=== PATIENT | female | born 1995 | race Caucasian/White ===

== ENCOUNTER → 2019-03-21 11:49 | Outpatient (CLI) | payer OTHER, SELFPAY ==
--- NOTE | 2019-03-21 12:25 | US_ITS ---
STUDY: ULTRASOUND BREAST - LEFT REASON FOR EXAM: Female, 23 years old. Left breast pain TECHNIQUE: Axial and longitudinal images of the LEFT breast were performed with a high resolution ultrasound transducer. COMPARISON: None. FINDINGS: LEFT Breast: Ultrasound evaluation of the upper outer quadrant of left breast shows only normal dense fibroglandular tissue. There is no suspicious solid or cystic mass, architectural distortion, or shadowing calcifications. US/Breast Limited Unilateral IMPRESSION: No suspicious sonographic findings ASSESSMENT CATEGORY: BIRADS Category 1: Negative. A letter regarding these results will be sent to the patient by the facility within 30 days. Electronically Signed: Gustabo Alejo MD at 13:34 EDT , Service support ,
== END ==
PROVIDERS: Family Provider Family Medicine; PCP Family Medicine; Referring Provider Family Medicine; Visit Provider Family Medicine
DX: N64.4 Mastodynia (principal)
CPT/HCPCS: 76642

== ENCOUNTER → 2019-06-19 12:02 | Outpatient (CLI) | payer OTHER, SELFPAY ==
[2019-06-19 11:01] VITALS: BMI 49.7
[2019-06-19 13:10] LABS: Absolute Lymphocyte Count 2.01 X10^3/uL (0.83-4.51); Absolute Neutrophil Count 7.2 X10^3/uL (2.0-7.7); Basophil# 0.06 X10^3/uL; Basophil% 0.6 % (0-1); Eosinophil# 0.03 X10^3/uL; Eosinophils% 0.3 % (0-5); Hematocrit 38.5 % (37-47); Lymphocyte # 2.01 X10^3/ul (4.0); Lymphocyte % 19.9 % (19-41); Mean Corp Hgb Conc 31.2 g/dL (32-36); Mean Corpuscular Hgb 24.4 pg (27.0-32.0); Mean Corpuscular Volume 78.3 fL (81-99); Mean Platelet Vol. 9.2 fl (6.2-12.0); Monocyte# 0.71 X10^3/uL; NRBC Flagged by Analyzer 0 % (0-5); Neutrophil # 7.23 X10^3/uL (2.7-7.7); Neutrophil % 71.8 % (47-70); Platelet Count 329 K/mm3 (150-450); RBC Distribution Width CV 16.7 % (11.6-14.6); RBC Distribution Width SD 47.3 fl (35.1-43.9); Red Blood Count 4.92 M/mm3 (4.2-5.4); White Blood Count 10.1 K/mm3 (4.4-11.0)
[2019-06-19 13:30] LABS: Glucose Challenge Gest 1H 50g 113 mg/dL (70-140)
[2019-06-19 14:20] LABS: HIV - WCH Non-Reactive (Nonreactive); Rubella IgG 72.5 IU/mL
[2019-06-19 18:44] LABS: Chlamydia Trachomatis by PCR Negative (Negative); Neisserai gonorrhoeae by PCR Negative (Negative); Probe Check PASS; Sample Adequacy Control PASS; Specimen Processing Control PASS
[2019-06-20 02:37] LABS: Rapid Plasmin Reagin (RPR) NONREACTIVE (NONREACTIVE)
== END ==
PROVIDERS: Family Provider Family Medicine; PCP Family Medicine; Referring Provider Obstetrics & Gynecology; Visit Provider Obstetrics & Gynecology
DX: Z34.90 Encounter for supervision of normal pregnancy, unspecified, unspecified trimester (principal); O99.210 Obesity complicating pregnancy, unspecified trimester; E66.9 Obesity, unspecified; Z3A.00 Weeks of gestation of pregnancy not specified
CPT/HCPCS: 36415; 82950; 85025; 86592; 86703; 86762; 86850; 86900; 86901; 87086; 87088; 87491; 87591

== ENCOUNTER 2019-08-06 16:26 | Emergency (ER) | payer OTHER, SELFPAY ==
[2019-07-23 09:22] VITALS: BMI 49.7
[2019-08-06 16:27] VITALS: BP 140/86; PULSE 102; RESP 16; TEMP 36.6; O2SAT 100; BMI 49.2
--- NOTE | 2019-08-06 16:38 | ED.VIS.GEN ---
History of Present Illness Chief Complaint: Abd Pain Detail of Chief Complaint: Left lower quadrant pain Informant: Patient Onset: Days - 3 days Timing: Intermittent Current Severity: Mild Maximum Severity: Moderate Narrative: Patient presents with left lower quadrant pain that she feels whenever she is voiding, urinating or defecating. She is currently 15 weeks with twins. She denies fever or chills. She has chronic ongoing nausea with the but it is not been any worse. She has had no diarrhea. - Past Medical History (1) Twin Status: Acute Comment: Di/Di Past Medical History - Allergies and Home Meds Allergies/Adverse Reactions: Allergies No Known Allergies Allergy (Verified 08/06/19 16:27) Primary Care Physician: Tabitha Overton MD [Primary Care Provider] - Prior records reviewed: Yes Lives: With Family Smoking Status: Never smoker Review of Systems General: Denies: Chills, Fever Eyes: Denies: Visual changes - bilaterally ENT: Denies: Bilateral ear pain Cardiovascular: Denies: Chest pain Respiratory: Denies: Dyspnea, Cough Gastrointestinal: Reports: Abdominal pain, Nausea, Vomiting. Denies: Diarrhea, Constipation Genitourinary: Reports: Dysuria Musculoskeletal: Denies: Extremity Pain Skin: Denies: Rash Neurological: Denies: Headache Endocrine: Denies: Polyuria, Polydipsia Allergy: Denies: Uticaria Physical Exam Vital Signs/Narrative: Vital Signs Temp Pulse Resp BP Pulse Ox 08/06/19 16:27 97.9 F 102 H 16 140/86 H 100 Inital Vital Signs reviewed: Yes General: Well nourished, Well developed Head: Normocephalic ENT: Moist mucous membranes Neck: Supple Cardiovascular: Regular rate, Regular rhythm Respiratory: No distress, CTA bilaterally Abdomen: Soft - Gravid, Tender - Minimal tenderness in the left lower quadrant., Hypoactive bowel sounds. Negative for: Guarding, Rebound tenderness Skin: Normal color, No rash Neurological: Alert, Oriented x3 Psychological: Normal affect Diagnostic/Tx/Re-eval Laboratory Results 08/06/19 16:41 Urine Color Yellow Urine Clarity Sl. Cloudy Urine pH 6.5 Ur Specific [place] 1.015 Urine Protein Negative Urine Glucose (UA) Normal Urine Ketones 15 H Urine Occult Blood Negative Urine Nitrite Negative Urine Bilirubin Negative Urine Urobilinogen Normal Ur Leukocyte Esterase 25 H Urine RBC 0 SEEN Urine WBC 0-5 SEEN Ur Squamous Epith Cells 10-25 SEEN Urine Bacteria 1+ Urine Mucus 0 SEEN - Medical Decision Making Test results are discussed with the patient. Urine is not a clean sample but does not have significant signs of infection. Patient has had not had fever or chills. She is had no change in bowel habits. Diverticulitis would be very unlikely given her current presentation. I did discuss this with her and advised her to have repeat exam if she were to develop worsening symptoms, fever, bowel changes, etc. I also spoke with the patient's RAZOR SHARPENER, Dr. Reagan. She agrees with the current assessment. Patient is to follow-up in the office. ED Disposition - Plan for ED Patient: Disposition: Home or Assisted Living Diagnosis: Abdominal pain Instructions: ABDOMINAL PAIN, Unknown Cause, (Female) Referrals: Nicole Reagan MD [STAFF PHYSICIAN] - 1 Week if not improving
[2019-08-06 16:51] LABS: Mucous, Urine 0 SEEN /hpf (<or=2+); Red Blood Cells-Urine 0 SEEN /hpf (0-5)
[2019-08-06 16:55] LABS: Color, Urine Yellow (Yellow); Glucose, Dipstick Normal (Normal); Ketone-Dipstick 15 mg/dl (Negative); Leukocyte Esterase-Dipstick 25 /ul (Negative); Nitrite-Dipstick Negative (Negative); Occult Blood-Urine Negative /ul (Negative); Protein-Dipstick Negative (Negative); Specific Gravity, Urine 1.015 (1.002-1.030); Urine Bilirubin Dipstick Negative (Negative); Urine Clarity Sl. Cloudy (Clear); Urine Urobilinogen Normal (Normal); Urine pH 6.5 (5.0 - 8.0)
[2019-08-06 17:03] LABS: Bacteria 1+ /hpf (None Seen); Squamous Epithelial Cells - UA 10-25 SEEN /hpf (5-10); White Blood Cells 0-5 SEEN /hpf (0-5)
== END 2019-08-06 17:23 | disposition home or self-care (01) ==
LOC: ED 17:19
PROVIDERS: Emergency Provider Emergency Medicine; Family Provider Family Medicine; PCP Family Medicine
DX: O26.892 Other specified pregnancy related conditions, second trimester (principal); R10.32 Left lower quadrant pain; R11.2 Nausea with vomiting, unspecified; R30.0 Dysuria; O30.042 Twin pregnancy, dichorionic/diamniotic, second trimester; Z3A.15 15 weeks gestation of pregnancy
CPT/HCPCS: 81001; 99282

== ENCOUNTER 2019-10-12 10:02 | Outpatient (CLI) | payer OTHER, SELFPAY ==
[2019-09-19 09:05] VITALS: BMI 49.2
[2019-10-12 10:58] VITALS: BMI 50.6
[2019-10-12 10:58] LABS: Bacteria 0 SEEN /hpf (None Seen); Mucous, Urine 0 SEEN /hpf (<or=2+); Red Blood Cells-Urine 0 SEEN /hpf (0-5); White Blood Cells 0 SEEN /hpf (0-5)
[2019-10-12 11:11] LABS: Color, Urine Yellow (Yellow); Glucose, Dipstick Normal (Normal); Ketone-Dipstick Negative (Negative); Leukocyte Esterase-Dipstick Negative /ul (Negative); Nitrite-Dipstick Negative (Negative); Occult Blood-Urine Negative /ul (Negative); Protein-Dipstick Negative (Negative); Specific Gravity, Urine 1.005 (1.002-1.030); Urine Bilirubin Dipstick Negative (Negative); Urine Clarity Clear (Clear); Urine Urobilinogen Normal (Normal)
[2019-10-12 11:16] LABS: Squamous Epithelial Cells - UA 10-25 SEEN /hpf (5-10)
[2019-10-12 11:29] LABS: ROM Internal Control Test YES-OK TO RESULT pt. (Internal QC); ROM Patient Test Negative (Negative)
--- NOTE | 2019-10-12 15:47 | OB.TRI.PN ---
Progress Notes Date of Service: 10/12/19 Progress Note: quesitonable ROM negative rom plus positive FHT x 2 dc home labor preacutions Laboratory Studies: Laboratory Tests 10/12/19 10/12/19 Range/Units 10:45 10:45 Urine Color Yellow (Yellow) Urine Clarity Clear (Clear) Urine pH 7.0 (5.0 - 8.0) Ur Specific [place] 1.005 (1.002-1.030) Urine Protein Negative (Negative) mg/dl Urine Glucose (UA) Normal (Normal) mg/dl Urine Ketones Negative (Negative) mg/dl Urine Occult Blood Negative (Negative) /ul Urine Nitrite Negative (Negative) Urine Bilirubin Negative (Negative) mg/dL Urine Urobilinogen Normal (Normal) mg/dl Ur Leukocyte Esterase Negative (Negative) /ul Urine RBC 0 SEEN (0-5) /hpf Urine WBC 0 SEEN (0-5) /hpf Ur Squamous Epith Cells 10-25 SEEN (5-10) /hpf Urine Bacteria 0 SEEN (None Seen) /hpf Urine Mucus 0 SEEN (<or=2+) /hpf Vag Amniotic Fld Detect Negative (Negative) Multi Select Codes - Urinary/Genital Urinary/Genital CPT Codes: No Charge
== END 2019-10-12 11:30 | disposition home or self-care (01) ==
LOC: WPOUT 10:24 → OBT 10:25
PROVIDERS: PCP Family Medicine; Visit Provider Obstetrics & Gynecology
DX: Z34.90 Encounter for supervision of normal pregnancy, unspecified, unspecified trimester (principal)
CPT/HCPCS: 59050; 81001; 84112; 99218; G0378

== ENCOUNTER 2019-10-19 09:42 | Inpatient (IN) | payer OTHER, SELFPAY ==
[2019-10-17 08:26] VITALS: BMI 50.6
[2019-10-19 09:43] VITALS: BP 155/87; PULSE 104; RESP 17; TEMP 36.9; O2SAT 97; BMI 51.0
[2019-10-19 10:06] LABS: Mucous, Urine 0 SEEN /hpf (<or=2+); Red Blood Cells-Urine 0 SEEN /hpf (0-5); White Blood Cells 0 SEEN /hpf (0-5)
[2019-10-19] MEDS: 0.9% Normal Saline 1,000 ML 150 ML IV (10:08)
[2019-10-19] MEDS: Ondansetron 4 MG/2 ML Vial IV ×2 (10:08→18:18)
[2019-10-19] MEDS: Morphine 4 MG/ML Syringe IV (10:08)
--- NOTE | 2019-10-19 10:09 | ED.VISSUMM ---
- ER Visit Summary Date of Service: 10/19/19 Chief Complaint: [Right-sided back pain] History of Present Illness: The patient is a 24 F [presents to the emergency department with symptoms that started around 2 AM this morning. Pain woke her up from sleep. Patient states the pain is progressively gotten worse. At times with breathing pain seems to radiate to the front of the abdomen. Patient complains of dysuria and urgency and frequency. She denies any fevers. Patient is currently with twins and is 25 weeks. Patient denies any fevers. She has had nausea and vomited x2. She denies any diarrhea. She denies any blood in her stool or black tarry stool. Food does not affect her pain. No prior history of kidney stones. Patient was seen in urgent care today and referred to the emergency department as she had blood in her urine.] Patient currently rates her pain a 10 out of 10. Physical Examination: [HEENT-PERRLA, EOMI. Cranial nerves II through XII grossly intact. TMs clear. Mucous membranes moist. No adenopathy. Cardiovascular-regular rate and rhythm without murmur or ectopy Lungs-clear to auscultation, chest wall stable without crepitus or subcu emphysema Abdomen-normoactive bowel sounds, soft, nontender, no rebound or rigidity, no peritoneal signs. Back exam-patient has CVA tenderness on the right. No tenderness over the thoracic or lumbar spine. Extremities-intact ?4, normal range of motion, normal pulses, atraumatic] Test Results: [CBC with differential obtained showed a white count 12.3, hemoglobin 11, hematocrit 34, placed to 80. Chemistries unremarkable. Urinalysis unremarkable. CT flank showed a right hydronephrosis and hydroureter they think possibly from compression of the ureter by the uterus] Emergency Department Course and Treatment: [Patient had an IV line established. Patient was ordered normal saline. Patient was given morphine 4 mg IV and Zofran 4 mg IV.] Patient had to be remedicated with Dilaudid 1 mg IV. Patient continued complaint of pain and was given a second dose of Dilaudid 1 mg IV. Case was discussed with patient's ASSOCIATE PROFESSOR OF COMMUNICATION Dr. Reagan who asked that we transfer patient over to labor and delivery to evaluate for early labor and to continue to manage her pain. Treatment Plan: [Patient will be discharged to labor and delivery. Patient I suspect will likely get admitted for pain management.] I will send off a lactate. In the differential also would be a renal infarct and patient may need further imaging such as CT scan with IV contrast if symptoms do not improve. Disposition: [Transfer to labor and delivery and care will be managed by Dr. Reagan ] Impression: [Intractable right flank pain-etiology uncertain] This note was generated with [employer] dictation software. It may contain incorrect words, spelling, and punctuation that were not noted in review of the chart prior to signing ED Disposition - Plan for ED Patient: Referrals: Tabitha Overton MD [Primary Care Provider] -
[2019-10-19 10:12] LABS: Absolute Lymphocyte Count 2.23 X10^3/uL (0.83-4.51); Absolute Neutrophil Count 8.9 X10^3/uL (2.0-7.7); Basophil# 0.05 X10^3/uL; Basophil% 0.4 % (0-1); Eosinophil# 0.12 X10^3/uL; Hematocrit 33.9 % (37-47); Hemoglobin 10.8 g/dL (12.0-15.0); Lymphocyte # 2.23 X10^3/ul (4.0); Lymphocyte % 18.1 % (19-41); Mean Corp Hgb Conc 31.9 g/dL (32-36); Mean Corpuscular Hgb 26.6 pg (27.0-32.0); Mean Corpuscular Volume 83.5 fL (81-99); Mean Platelet Vol. 9.1 fl (6.2-12.0); Monocyte# 0.91 X10^3/uL; Monocyte% 7.4 % (0-10); NRBC Flagged by Analyzer 0 % (0-5); Neutrophil # 8.87 X10^3/uL (2.7-7.7); Neutrophil % 71.9 % (47-70); Platelet Count 280 K/mm3 (150-450); RBC Distribution Width CV 14.7 % (11.6-14.6); RBC Distribution Width SD 44.5 fl (35.1-43.9); Red Blood Count 4.06 M/mm3 (4.2-5.4); White Blood Count 12.3 K/mm3 (4.4-11.0)
[2019-10-19 10:13] LABS: Color, Urine Yellow (Yellow); Glucose, Dipstick Normal (Normal); Ketone-Dipstick Negative (Negative); Leukocyte Esterase-Dipstick Negative /ul (Negative); Nitrite-Dipstick Negative (Negative); Occult Blood-Urine 25 /ul (Negative); Protein-Dipstick 30 mg/dl (Negative); Urine Bilirubin Dipstick Negative (Negative); Urine Clarity Clear (Clear); Urine Urobilinogen Normal (Normal); Urine pH 6.5 (5.0 - 8.0)
[2019-10-19 10:16] VITALS: BP 155/87; PULSE 104; RESP 17; TEMP 36.9; O2SAT 97
[2019-10-19 10:27] LABS: Bacteria 1+ /hpf (None Seen); Squamous Epithelial Cells - UA 5-10 SEEN /hpf (5-10)
[2019-10-19 10:28] LABS: ALB/GLOB Ratio 0.7 RATIO (0.9-2.4); AST(SGOT) 7 U/L (15-37); Alanine Aminotransfer ALT/SGPT 22 U/L (13-56); Alkaline Phosphatase 109 U/L (45-117); Anion Gap 5 (5-15); BUN 11 mg/dL (7-18); BUN/Creat Ratio 13.6 RATIO (10-20); Calcium,Total 9.1 mg/dL (8.5-10.1); Chloride 108 mmol/L (98-107); Creatinine, Serum 0.81 mg/dL (0.55-1.02); EST Glomerular Filtration Rate 92 mL/min (>60); Est Glom Filt Rate - Afr Amer 111 mL/min (>60); Estimated Creatinine Clearance 87.83 ml/min; Globulin 4.4 g/dL (2.2-4.2); Glucose 88 mg/dL (74-106); Potassium 4.1 mmol/L (3.5-5.1); Protein, Total 7.4 g/dL (6.4-8.2); Sodium Level 138 mmol/L (136-145)
--- NOTE | 2019-10-19 10:38 | CT_ITS ---
STUDY: CT ABDOMEN AND PELVIS WITHOUT CONTRAST REASON FOR EXAM: Female, 24 years old. RT FLANK PAIN, 25 WKS PREG RADIATION DOSAGE (If Supplied By Facility): CTDIvol = ( 24.17 ) mGy, DLP = ( 1462.60 ) mGycm TECHNIQUE: Transaxial images were obtained from the dome of the diaphragm to the symphysis pubis without oral contrast, and without intravenous contrast. Sagittal and coronal images were reconstructed. Individualized dose optimization techniques were used for this CT. COMPARISON: None. FINDINGS: The visualized lung bases are unremarkable. The visualized portions of the heart are within normal limits. Normal liver. Normal gallbladder and extrahepatic biliary system. Normal spleen. Normal pancreas. Normal bilateral adrenal glands. Mild hydronephrosis of the right kidney and mild proximal right hydroureter. Normal left kidney. Normal visualized stomach. Normal small intestine. Normal colon. The appendix is visualized and appears normal. Normal abdominal aorta. Normal inferior vena cava. Normal retroperitoneum. Normal urinary bladder. Twin gestation is noted within the uterus. Enlarged uterus may compress the right ureter. Normal abdominal wall. Normal osseous structures. CT/Abdomen/Pelvis without Cont IMPRESSION: Mild right hydronephrosis and mild right hydroureter with probable compression of the distal right ureter by the gravid uterus containing a twin gestation. Electronically Signed: Sang Mehta DO at 11:43 EST Tel [phone], Service support ,
[2019-10-19] MEDS: HYDROmorphone 1 MG/ML Syringe IV ×4 (10:55→16:42)
[2019-10-19 11:23] VITALS: BP 120/48; PULSE 98; RESP 20; O2SAT 97
[2019-10-19 11:51] VITALS: BP 163/91; PULSE 91; RESP 20
--- NOTE | 2019-10-19 11:59 | ED.DEP ---
ED Disposition - Plan for ED Patient: Instructions: FLANK PAIN, Uncertain Cause Referrals: Tabitha Overton MD [Primary Care Provider] - Nicole Reagan MD [STAFF PHYSICIAN] - As soon as possible Additional Instructions: go directly to labor and delivery
[2019-10-19 12:24] VITALS: BMI 50.5
[2019-10-19 12:24] LABS: Lactic Acid 0.6 mmol/L (0.4-1.9)
[2019-10-19] MEDS: fentaNYL 100 MCG/2 ML Ampul 50 MCG IV (12:38)
[2019-10-19] MEDS: fentaNYL 100 MCG/2 ML Ampul IV ×4 (12:59→14:03)
[2019-10-19] MEDS: Lactated Ringers 500 ML 999 ML IV (13:19)
[2019-10-19 13:30] LABS: ALB/GLOB Ratio 0.7 RATIO (0.9-2.4); AST(SGOT) 10 U/L (15-37); Alanine Aminotransfer ALT/SGPT 19 U/L (13-56); Albumin, Serum 2.8 g/dL (3.2-5.0); Alkaline Phosphatase 104 U/L (45-117); Anion Gap 8 (5-15); BUN 10 mg/dL (7-18); Calcium,Total 8.7 mg/dL (8.5-10.1); Chloride 111 mmol/L (98-107); Creatinine, Serum 0.84 mg/dL (0.55-1.02); EST Glomerular Filtration Rate 88 mL/min (>60); Est Glom Filt Rate - Afr Amer 107 mL/min (>60); Estimated Creatinine Clearance 84.69 ml/min; Glucose 95 mg/dL (74-106); LDH 153 U/L (84-246); Potassium 4.2 mmol/L (3.5-5.1); Protein, Total 6.8 g/dL (6.4-8.2); Sodium Level 139 mmol/L (136-145); Uric Acid 4.1 mg/dL (2.6-6.0)
[2019-10-19 14:18] LABS: Fibrinogen 598 mg/dl (203-444)
[2019-10-19] MEDS: proMETHazine 25 MG/ML Syringe IM (14:33)
[2019-10-19] MEDS: Ceftriaxone 1 GM/50 ML BAG IV (14:52)
--- NOTE | 2019-10-19 15:05 | CON.PCM_ITS ---
Problem List (1) Low back pain Status: Acute Qualifiers: Chronicity: acute Back pain laterality: right (2) Dysuria during Status: Acute (3) Dysuria Status: Acute Reason for Consult Date of Consultation: 10/19/19 Reason for Consultation: right low back pain History of Present Illness: The patient is a 24 year old F 25 weeks gravid with twin . Developed acute onset right low back pain at 2am. The pain radiates into right groin area and is also associated with nausea. She has vomited 4 times. No history of stones, no pain like this previously. There is some mild dysuria, but no increased urgency, frequency or hematuria. No fever or chills. In significant pain, she is lying on left side, reports pain is worse when she lays this way as it feels like it stretches out the area with pain. Past Medical History Allergies No Known Allergies Allergy (Verified 10/19/19 09:43) Home Medications: Ambulatory Orders Medication Instructions Recorded famotidine 20 mg tablet 20 mg PO DAILY #30 tab 07/23/19 Ferrous Sulfate [Iron] 325 mg PO DAILY 10/12/19 Folic Acid 1 mg PO DAILY 10/12/19 Vits [Prenatabs FA ] 1 tab PO DAILY 10/12/19 Ondansetron HCl [Zofran] 4 mg PO Q4H PRN 10/19/19 Smoking Status: Never smoker Review of Systems Constitutional: Denies: Fever Eyes: Denies: Vision Change HEENT: Denies: Visual Changes Cardiovascular: Denies: Chest Pain Respiratory: Denies: Shortness of Breath Gastrointestinal: Reports: Abdominal Pain - right inguinal and right low back Genitourinary: Reports: Dysuria. Denies: Frequency, Hematuria, Hesitancy, Urgency Musculoskeletal: Reports: Muscle pain - describes it as a stretching pain Neurological: Denies: Confusion Patient Problems: Active and Suspected Problems (Last Reviewed 10/17/19 @ 08:25 by Mar Fernández) Low back pain (Acute) Dysuria during (Acute) Dysuria (Acute) Objective: She is grimacing due to pain. - Physical Exam Vitals/I&O's: Vital Signs Temp Pulse Resp BP Pulse Ox 98.4 F 91 20 H 163/91 H 97 10/19/19 10:16 10/19/19 11:51 10/19/19 11:51 10/19/19 11:51 10/19/19 11:23 Oxygen Delivery Method Room Air Weight: 129.5 kg Body Mass Index (BMI) 50.5 Intake and Output for Last 24 Hours 10/17/19 10/18/19 10/19/19 23:59 23:59 23:59 Intake Total 807.85 / 807.85 Balance 807.85 / 807.85 General: Alert, Oriented x3, Cooperative, - - moderate stress due to pain HEENT: Atraumatic, Normocephalic Oral: Moist Mucosa Neck: Supple, Trachea Midline Lungs: Normal air movement Cardiovascular: Regular rate Abdomen: Gravid, Tender - over the right low back and hip area. There is no tenderness in the flank or CVA with palpation. The pain is superficial in location, seems muscular when palpated. Skin: No rashes Musculoskeletal: No Muscle Wasting Neurological: Cranial nerves II-XII grossly intact, Neuro grossly intact Laboratory Results 10/19/19 10:00: WBC 12.3 H, RBC 4.06 L, Hgb 10.8 L, Hct 33.9 L, MCV 83.5, MCH 26.6 L, MCHC 31.9 L, RDW Std Deviation 44.5 H, RDW Coeff of Joey 14.7 H, Plt Count 280, MPV 9.1, Immature Gran % (Auto) 1.200 H, Neut % (Auto) 71.9 H, Lymph % (Auto) 18.1 L, [place] % (Auto) 7.4, Eos % (Auto) 1.0, Baso % (Auto) 0.4, Absolute Neuts (auto) 8.9 H, Absolute Lymphs (auto) 2.23, Nucleated RBC % 0 10/19/19 10:00: Sodium 138, Potassium 4.1, Chloride 108 H, Carbon Dioxide 25.0, Anion Gap 5, BUN 11, Creatinine 0.81, Estim Creat Clear Calc 87.83, Est GFR (MDRD) Af Amer 111, Est GFR (MDRD) Non-Af 92, BUN/Creatinine Ratio 13.6, Glucose 88, Calcium 9.1, Total Bilirubin 0.30, AST 7 L, ALT 22, Alkaline Phosphatase 109, Total Protein 7.4, Albumin 3.0 L, Globulin 4.4 H, Albumin/Globulin Ratio 0.7 L 10/19/19 10:00: Urine Color Yellow, Urine Clarity Clear, Urine pH 6.5, Ur Specific [place] 1.020, Urine Protein 30 H, Urine Glucose (UA) Normal, Urine Ketones Negative, Urine Occult Blood 25 H, Urine Nitrite Negative, Urine Bilirubin Negative, Urine Urobilinogen Normal, Ur Leukocyte Esterase Negative, Urine RBC 0 SEEN, Urine WBC 0 SEEN, Ur Squamous Epith Cells 5-10 SEEN, Urine Bacteria 1+, Urine Mucus 0 SEEN 10/19/19 11:55: Lactic Acid 0.6 10/19/19 13:00: Sodium 139, Potassium 4.2, Chloride 111 H, Carbon Dioxide 20.0 L , Anion Gap 8, BUN 10, Creatinine 0.84, Estim Creat Clear Calc 84.69, Est GFR (MDRD) Af Amer 107, Est GFR (MDRD) Non-Af 88, BUN/Creatinine Ratio 12.0, Glucose 95, Uric Acid 4.1, Calcium 8.7, Total Bilirubin 0.20, AST 10 L, ALT 19, Alkaline Phosphatase 104, Lactate Dehydrogenase 153, Total Protein 6.8, Albumin 2.8 L, Globulin 4.0, Albumin/Globulin Ratio 0.7 L 10/19/19 13:35: Fibrinogen 598 H Current Medications Fentanyl Citrate (Sublimaze (100mcg Ampule)) 25 - 50 mcg IV Q15M PRN PRN Reason: PAIN SCORE 1-10 Last Admin: 10/19/19 14:03 Dose: 50 mcg Documented by: Hydromorphone HCl (Dilaudid Inj) 1 mg IV X1 PRN PRN Reason: Pain Score 1-10/10 or Fever Ceftriaxone Sodium (Rocephin) 1 gm in 50 mls @ 100 mls/hr IV Q24 RAVEN Last Admin: 10/19/19 14:52 Dose: 100 mls/hr Documented by: Assessment/Plan All Active Problems (Last Reviewed 10/17/19 @ 08:25 by Mar Fernández) Low back pain (Acute) Dysuria during (Acute) Dysuria (Acute) Twin (Acute) Supervision of high-risk (Acute) Obesity affecting (Acute) (Acute) Agree with Rocephin and await urine culture. Keflex on discharge. I reviewed the CT report and images. There is no evidence of stone, but there is mild right hydronephrosis, most consistent at this time with physiologic obstruction due to . Continue supportive care with pain medication, antiemetics, fluid as needed. Will add local pain gel to see if helps. Recommend continued K-pad as well. Will follow vitals, labs and exams. Thank you for the consult.
[2019-10-19] MEDS: Capsaicin 0.025% 1 APPLIC Tube TOPICAL (15:34)
--- NOTE | 2019-10-19 15:35 | NURSING ---
topical analgesic applied to right buttock per order. after approx 5 min pt c/o burning. States this is making it worse topicals removed with soap and water per pt request
[2019-10-19 16:13] LABS: Absolute Lymphocyte Count 1.11 X10^3/uL (0.83-4.51); Absolute Neutrophil Count 13.6 X10^3/uL (2.0-7.7); Basophil# 0.05 X10^3/uL; Basophil% 0.3 % (0-1); Hematocrit 33.2 % (37-47); Hemoglobin 10.3 g/dL (12.0-15.0); Lymphocyte # 1.11 X10^3/ul (4.0); Mean Corpuscular Hgb 26.4 pg (27.0-32.0); Mean Corpuscular Volume 85.1 fL (81-99); Mean Platelet Vol. 8.9 fl (6.2-12.0); Monocyte# 0.86 X10^3/uL; Monocyte% 5.5 % (0-10); NRBC Flagged by Analyzer 0 % (0-5); Neutrophil # 13.56 X10^3/uL (2.7-7.7); Platelet Count 230 K/mm3 (150-450); RBC Distribution Width CV 14.3 % (11.6-14.6); RBC Distribution Width SD 43.9 fl (35.1-43.9); White Blood Count 15.8 K/mm3 (4.4-11.0)
[2019-10-19] MEDS: Lactated Ringers 1,000 ML 100 ML IV (16:49)
--- NOTE | 2019-10-19 20:15 | US_ITS ---
STUDY: RENAL ULTRASOUND - COMPLETE REASON FOR EXAM: Female, 24 years old. Right-sided pain. TECHNIQUE: Ultrasound evaluation of the kidneys was performed with real-time and static burch-scale imaging. COMPARISON: CT abdomen and pelvis earlier same date. FINDINGS: RIGHT KIDNEY: Normal size 12.9 x 7.9 x 7.0 cm. Normal cortical thickness 2.0 cm. Mild right hydronephrosis again demonstrated. No stones are evident. LEFT KIDNEY: Normal size 11.6 x 6.9 x 6.2 cm. Normal cortical thickness 2.0 cm. No concerning mass, shadowing stone, or hydronephrosis. Normal caliber abdominal aorta. Urinary bladder with no apparent mass or stones or filling defects, not fully distended. Left ureteral jet identified. Right ureteral jet not seen. US/Kidney and Bladder IMPRESSION: Moderate right hydronephrosis due to compression of the mid right ureter by the gravid uterus again demonstrated. Electronically Signed: Duc Chávez, at 23:54 EST Tel , Service support ,
--- NOTE | 2019-10-19 20:15 | US_ITS ---
STUDY: ABDOMINAL ULTRASOUND - RIGHT UPPER QUADRANT REASON FOR VISIT: Female, 24 years old RLQ AND RUQ PAIN 25WEEKS WITH TWINS RIGHT FLANK PAIN TECHNIQUE: Ultrasound evaluation of the right upper quadrant was performed with real-time and static valdez-scale imaging. TECHNICAL QUALITY: Limited. Examination limited due to a combination of factors including patient''s condition, obesity and bowel gas. COMPARISON: CT abdomen pelvis 10/19/2019 FINDINGS: Liver: The liver measures 22 cm. There is normal echogenicity of the liver. The bile ducts are within normal limits. There is hepatic color flow. The direction of portal flow is hepatopetal. There is no demonstrated mass lesion. Gallbladder: 10 cm distended gallbladder. The gallbladder wall measures 2.2 mm. There is a negative sonographic Mai''s sign. There is no pericholecystic fluid. There are gallbladder polyp of 0.4 x 0.4 x 0.5 cm. Common Bile Duct (C.B.D.): The common bile duct measures 3 mm. Pancreas: Normal size of the head, body and tail of the pancreas. There is normal echogenicity of the pancreas. There is no demonstrated pancreatic mass or cyst. Right Kidney: Normal size of the right kidney. The right kidney measures 13.3 x 8 x 7.3 cm. Normal renal cortex. The right cortex measures 2.4 cm. There is no demonstrated renal mass or cyst. There is mild hydronephrosis of the right kidney. US/Abdomen Limited IMPRESSION: Mild right hydronephrosis without obstructing calculus is seen on CT. Gallbladder polyp without gallbladder inflammation, biliary obstruction, or ascites. Electronically Signed: Hansa Castro MD at 23:58 EST , Service support ,
[2019-10-19 21:40] LABS: Fibrinogen 582 mg/dl (203-444)
[2019-10-19 21:48] LABS: ALB/GLOB Ratio 0.7 RATIO (0.9-2.4); AST(SGOT) 9 U/L (15-37); Alanine Aminotransfer ALT/SGPT 19 U/L (13-56); Albumin, Serum 2.7 g/dL (3.2-5.0); Alkaline Phosphatase 104 U/L (45-117); Anion Gap 11 (5-15); BUN 10 mg/dL (7-18); Calcium,Total 8.6 mg/dL (8.5-10.1); Chloride 106 mmol/L (98-107); Creatinine, Serum 0.91 mg/dL (0.55-1.02); EST Glomerular Filtration Rate 80 mL/min (>60); Est Glom Filt Rate - Afr Amer 97 mL/min (>60); Estimated Creatinine Clearance 78.18 ml/min; Glucose 82 mg/dL (74-106); LDH 126 U/L (84-246); Protein, Total 6.7 g/dL (6.4-8.2); Sodium Level 139 mmol/L (136-145)
[2019-10-20 00:03] LABS: Lactic Acid 0.7 mmol/L (0.4-1.9)
[2019-10-20] MEDS: HYDROmorphone 1 MG/ML Syringe IV ×2 (00:04→04:39)
[2019-10-20] MEDS: fentaNYL 100 MCG/2 ML Ampul IV (03:14)
[2019-10-20] MEDS: Ondansetron 4 MG/2 ML Vial IV (03:26)
[2019-10-20] MEDS: Lactated Ringers 1,000 ML 100 ML IV (03:26)
[2019-10-20 04:43] LABS: Absolute Lymphocyte Count 2.05 X10^3/uL (0.83-4.51); Absolute Neutrophil Count 10.2 X10^3/uL (2.0-7.7); Basophil# 0.04 X10^3/uL; Basophil% 0.3 % (0-1); Eosinophil# 0.02 X10^3/uL; Eosinophils% 0.1 % (0-5); Hematocrit 29.1 % (37-47); Hemoglobin 8.9 g/dL (12.0-15.0); Lymphocyte # 2.05 X10^3/ul (4.0); Lymphocyte % 15.3 % (19-41); Mean Corp Hgb Conc 30.6 g/dL (32-36); Mean Corpuscular Hgb 25.8 pg (27.0-32.0); Mean Corpuscular Volume 84.3 fL (81-99); Mean Platelet Vol. 9.2 fl (6.2-12.0); Monocyte# 0.96 X10^3/uL; Monocyte% 7.2 % (0-10); NRBC Flagged by Analyzer 0 % (0-5); Neutrophil # 10.23 X10^3/uL (2.7-7.7); Neutrophil % 76.3 % (47-70); Platelet Count 235 K/mm3 (150-450); RBC Distribution Width CV 14.6 % (11.6-14.6); RBC Distribution Width SD 44.6 fl (35.1-43.9); Red Blood Count 3.45 M/mm3 (4.2-5.4); White Blood Count 13.4 K/mm3 (4.4-11.0)
[2019-10-20 05:14] LABS: ALB/GLOB Ratio 0.7 RATIO (0.9-2.4); AST(SGOT) 10 U/L (15-37); Alanine Aminotransfer ALT/SGPT 18 U/L (13-56); Albumin, Serum 2.5 g/dL (3.2-5.0); Alkaline Phosphatase 96 U/L (45-117); Anion Gap 9 (5-15); BUN 9 mg/dL (7-18); BUN/Creat Ratio 9.5 RATIO (10-20); Calcium,Total 8.6 mg/dL (8.5-10.1); Chloride 107 mmol/L (98-107); Creatinine, Serum 0.95 mg/dL (0.55-1.02); EST Glomerular Filtration Rate 76 mL/min (>60); Est Glom Filt Rate - Afr Amer 92 mL/min (>60); Estimated Creatinine Clearance 74.88 ml/min; Globulin 3.8 g/dL (2.2-4.2); Glucose 93 mg/dL (74-106); Potassium 3.6 mmol/L (3.5-5.1); Protein, Total 6.3 g/dL (6.4-8.2); Sodium Level 137 mmol/L (136-145)
--- NOTE | 2019-10-20 05:55 | US_ITS ---
STUDY: SECOND AND THIRD TRIMESTER OBSTETRICAL ULTRASOUND - TWIN REASON FOR EXAM: Female, 24 years old. LMP: 04/23/2019 GROWTH AND WELL BEING- TWINS TECHNIQUE: Transabdominal TECHNICAL QUALITY: Adequate. COMPARISON: None. FINDINGS: There are two intrauterine fetuses. Two discrete placenta common consistent with a dichorionic . The placenta is posterior. There is a thick amniotic membrane (>2mm), indicating a diamniotic . There is a normal amniotic fluid volume within each amniotic sac. The uterine wall is normal. There is a competent closed cervical os. The cervix measures 4.2 cm in length. Fetus A demonstrates external genitalia. Fetus A demonstrates cardiac activity with a heart rate of 155 bpm. Fetus ?A? is in a cephalic presentation. Fetus B demonstrates external genitalia. Fetus B demonstrates cardiac activity with a heart rate of 149 bpm. Fetus B is in an transverse lie with the head on the maternal right side. FETUS A BIOMETRY: BPD: 6.8 cm: 27 weeks, 2 days HC: 24.6 cm: 26 weeks, 5 days AC: 21.9 cm: 26 weeks, 3 days FL: 4.8 cm: 26 weeks, 1 days CI: 83% FL/BPD: 71% FL/HC: FL/AC: 22% HC/AC: 1.12 age by current US: 26 weeks, 5 days. MIKAYLA by current US: 01/21/2020. Estimated weight: 918 grams, +/- 134 grams, 65 %. Age by LMP: 25 weeks, 5 days. MIKAYLA by LMP: 01/28/2020. FETUS B BIOMETRY: BPD: 6.3 cm: 25 weeks, 3 days HC: 23.6 cm: 25 weeks, 5 days AC: 21.3 cm: 25 weeks, 6 days FL: 4.8 cm: 26 weeks, 0 days CI: 78% FL/BPD: 76% FL/HC: FL/AC: 22% HC/AC: 1.11 age by current US: 25 weeks, 6 days. MIKAYLA by current US: 01/27/2020. Estimated weight: 855 grams, +/- 125 grams, 43 %. Age by LMP: 25 weeks, 5 days. MIKAYLA by LMP: 01/28/2020. US/OB Limited With Biometrics IMPRESSION: Normal intrauterine . Electronically Signed: Denis James MD at 13:34 EST Tel , Service support , Referred to twin gestation ultrasound. Electronically Signed: Denis James MD at 13:38 EST Tel , Service support ,
--- NOTE | 2019-10-20 07:28 | PCM.HP.OB ---
- Problem List (1) Right flank pain Status: Acute (2) Low back pain Status: Acute Qualifiers: Chronicity: acute Back pain laterality: right (3) Dysuria during Status: Acute (4) Dysuria Status: Acute (5) Twin Status: Acute Comment: Di/Di, growth every 4 weeks after 28, delivery by 38 (6) Supervision of high-risk Status: Acute Qualifiers: Trimester: first trimester Qualified Code(s): O09.91 - Supervision of high risk , unspecified, first trimester Comment: PRR (HepB) MIKAYLA 01/28/20 Yary Adkins Marlee Rubio (7) Obesity affecting Status: Acute Qualifiers: Trimester: first trimester Qualified Code(s): O99.211 - Obesity complicating , first trimester Comment: 1 tm glucola nl, testing after 32 weeks on l and d (8) Status: Acute Qualifiers: Weeks of gestation: 25 weeks Qualified Code(s): Z3A.25 - 25 weeks gestation of Comment: declined invasive genetic, carrier, and NTD screening. NT normal for DI/DI twin History Date of Admission: 10/20/19 Final MIKAYLA: 01/28/20 Gestational age: 25 Weeks and 5 Days History of this : This is a 24 year-old, at 25 weeks gestational age with twins presents with acute right flank pain radiating into her right lower abdomen. Patient was initially seen in the ER and given IV fluids and has a CT without contrast which showed mild right hydronephrosis and hydroureter and had a low level elevated white count. She was afebrile but extremely uncomfortable and pain control was unable to be reached with IV medication and therefore she was [facility]. No cervical dilation, bleeding, loss of fluid or regular contractions were seen. She denies any infection symptoms.. Allergies No Known Allergies Allergy (Verified 10/19/19 09:43) Home Medications: Home Medications famotidine 20 mg tablet 20 mg PO DAILY #30 tab 07/23/19 Ferrous Sulfate [Iron] 325 mg PO DAILY 10/12/19 Folic Acid 1 mg PO DAILY 10/12/19 Vits [Prenatabs FA ] 1 tab PO DAILY 10/12/19 Ondansetron HCl [Zofran] 4 mg PO Q4H PRN 10/19/19 Smoking Status: Never smoker Alcohol: None Number of Fetus(es): 2 NST - FHR Rate Baby A Baseline: 150 NST Reactive:: Appropriate for gestational age Uterine Activity:: no regular - FHR Rate Baby B Baseline: 145 NST Reactive:: Appropriate for gestational age History Past Pregnancies: Past Pregnancies previous term vaginal delivery Labs: Mom's Microbiology 10/19/19 10:00 Urine, Clean Catch Urine Culture - Pending Mom's Problem List Problem Status Onset Code Low back pain Acute M54.5 Dysuria during Acute O26.899, R30.0 Dysuria Acute R30.0 Mom's Labs & Results 10/19/19 10/19/19 10/19/19 10:00 10:00 10:00 WBC 12.3 H RBC 4.06 L Hgb 10.8 L Hct 33.9 L MCV 83.5 MCH 26.6 L MCHC 31.9 L RDW Std Deviation 44.5 H RDW Coeff of Joey 14.7 H Plt Count 280 MPV 9.1 Immature Gran % (Auto) 1.200 H Neut % (Auto) 71.9 H Lymph % (Auto) 18.1 L [place] % (Auto) 7.4 Eos % (Auto) 1.0 Baso % (Auto) 0.4 Absolute Neuts (auto) 8.9 H Absolute Lymphs (auto) 2.23 Nucleated RBC % 0 Fibrinogen Sodium 138 Potassium 4.1 Chloride 108 H Carbon Dioxide 25.0 Anion Gap 5 BUN 11 Creatinine 0.81 Estim Creat Clear Calc 87.83 Est GFR (MDRD) Af Amer 111 Est GFR (MDRD) Non-Af 92 BUN/Creatinine Ratio 13.6 Glucose 88 Lactic Acid Uric Acid Calcium 9.1 Total Bilirubin 0.30 AST 7 L ALT 22 Alkaline Phosphatase 109 Lactate Dehydrogenase Total Protein 7.4 Albumin 3.0 L Globulin 4.4 H Albumin/Globulin Ratio 0.7 L Urine Color Yellow Urine Clarity Clear Urine pH 6.5 Ur Specific [place] 1.020 Urine Protein 30 H Urine Glucose (UA) Normal Urine Ketones Negative Urine Occult Blood 25 H Urine Nitrite Negative Urine Bilirubin Negative Urine Urobilinogen Normal Ur Leukocyte Esterase Negative Urine RBC 0 SEEN Urine WBC 0 SEEN Ur Squamous Epith Cells 5-10 SEEN Urine Bacteria 1+ Urine Mucus 0 SEEN Hep Bs Antigen 02/23/20 02/23/20 02/23/20 11:55 13:00 13:35 WBC RBC Hgb Hct MCV MCH MCHC RDW Std Deviation RDW Coeff of Joey Plt Count MPV Immature Gran % (Auto) Neut % (Auto) Lymph % (Auto) [place] % (Auto) Eos % (Auto) Baso % (Auto) Absolute Neuts (auto) Absolute Lymphs (auto) Nucleated RBC % Fibrinogen 598 H Sodium 139 Potassium 4.2 Chloride 111 H Carbon Dioxide 20.0 L Anion Gap 8 BUN 10 Creatinine 0.84 Estim Creat Clear Calc 84.69 Est GFR (MDRD) Af Amer 107 Est GFR (MDRD) Non-Af 88 BUN/Creatinine Ratio 12.0 Glucose 95 Lactic Acid 0.6 Uric Acid 4.1 Calcium 8.7 Total Bilirubin 0.20 AST 10 L ALT 19 Alkaline Phosphatase 104 Lactate Dehydrogenase 153 Total Protein 6.8 Albumin 2.8 L Globulin 4.0 Albumin/Globulin Ratio 0.7 L Urine Color Urine Clarity Urine pH Ur Specific [place] Urine Protein Urine Glucose (UA) Urine Ketones Urine Occult Blood Urine Nitrite Urine Bilirubin Urine Urobilinogen Ur Leukocyte Esterase Urine RBC Urine WBC Ur Squamous Epith Cells Urine Bacteria Urine Mucus Hep Bs Antigen 10/19/19 10/19/19 10/19/19 16:05 21:10 21:10 WBC 15.8 H RBC 3.90 L Hgb 10.3 L Hct 33.2 L MCV 85.1 MCH 26.4 L MCHC 31.0 L RDW Std Deviation 43.9 RDW Coeff of Joey 14.3 Plt Count 230 MPV 8.9 Immature Gran % (Auto) 1.200 H Neut % (Auto) 86.0 H Lymph % (Auto) 7.0 L [place] % (Auto) 5.5 Eos % (Auto) 0.0 Baso % (Auto) 0.3 Absolute Neuts (auto) 13.6 H Absolute Lymphs (auto) 1.11 Nucleated RBC % 0 Fibrinogen 582 H Sodium Potassium Chloride Carbon Dioxide Anion Gap BUN Creatinine Estim Creat Clear Calc Est GFR (MDRD) Af Amer Est GFR (MDRD) Non-Af BUN/Creatinine Ratio Glucose Lactic Acid Uric Acid Calcium Total Bilirubin AST ALT Alkaline Phosphatase Lactate Dehydrogenase Total Protein Albumin Globulin Albumin/Globulin Ratio Urine Color Urine Clarity Urine pH Ur Specific [place] Urine Protein Urine Glucose (UA) Urine Ketones Urine Occult Blood Urine Nitrite Urine Bilirubin Urine Urobilinogen Ur Leukocyte Esterase Urine RBC Urine WBC Ur Squamous Epith Cells Urine Bacteria Urine Mucus Hep Bs Antigen Pending 10/19/19 10/19/19 10/20/19 21:10 23:25 04:30 WBC 13.4 H RBC 3.45 L Hgb 8.9 L Hct 29.1 L MCV 84.3 MCH 25.8 L MCHC 30.6 L RDW Std Deviation 44.6 H RDW Coeff of Joey 14.6 Plt Count 235 MPV 9.2 Immature Gran % (Auto) 0.800 Neut % (Auto) 76.3 H Lymph % (Auto) 15.3 L [place] % (Auto) 7.2 Eos % (Auto) 0.1 Baso % (Auto) 0.3 Absolute Neuts (auto) 10.2 H Absolute Lymphs (auto) 2.05 Nucleated RBC % 0 Fibrinogen Sodium 139 Potassium 4.0 Chloride 106 Carbon Dioxide 22.0 Anion Gap 11 BUN 10 Creatinine 0.91 Estim Creat Clear Calc 78.18 Est GFR (MDRD) Af Amer 97 Est GFR (MDRD) Non-Af 80 BUN/Creatinine Ratio 11.0 Glucose 82 Lactic Acid 0.7 Uric Acid Calcium 8.6 Total Bilirubin 0.30 AST 9 L ALT 19 Alkaline Phosphatase 104 Lactate Dehydrogenase 126 Total Protein 6.7 Albumin 2.7 L Globulin 4.0 Albumin/Globulin Ratio 0.7 L Urine Color Urine Clarity Urine pH Ur Specific [place] Urine Protein Urine Glucose (UA) Urine Ketones Urine Occult Blood Urine Nitrite Urine Bilirubin Urine Urobilinogen Ur Leukocyte Esterase Urine RBC Urine WBC Ur Squamous Epith Cells Urine Bacteria Urine Mucus Hep Bs Antigen 10/20/19 04:30 WBC RBC Hgb Hct MCV MCH MCHC RDW Std Deviation RDW Coeff of [place] Plt Count MPV Immature Gran % (Auto) Neut % (Auto) Lymph % (Auto) [place] % (Auto) Eos % (Auto) Baso % (Auto) Absolute Neuts (auto) Absolute Lymphs (auto) Nucleated RBC % Fibrinogen Sodium 137 Potassium 3.6 Chloride 107 Carbon Dioxide 21.0 Anion Gap 9 BUN 9 Creatinine 0.95 Estim Creat Clear Calc 74.88 Est GFR (MDRD) Af Amer 92 Est GFR (MDRD) Non-Af 76 BUN/Creatinine Ratio 9.5 L Glucose 93 Lactic Acid Uric Acid Calcium 8.6 Total Bilirubin 0.40 AST 10 L ALT 18 Alkaline Phosphatase 96 Lactate Dehydrogenase Total Protein 6.3 L Albumin 2.5 L Globulin 3.8 Albumin/Globulin Ratio 0.7 L Urine Color Urine Clarity Urine pH Ur Specific [place] Urine Protein Urine Glucose (UA) Urine Ketones Urine Occult Blood Urine Nitrite Urine Bilirubin Urine Urobilinogen Ur Leukocyte Esterase Urine RBC Urine WBC Ur Squamous Epith Cells Urine Bacteria Urine Mucus Hep Bs Antigen Social History Smoking Status Never smoker Expected Delivery Method: Spontaneous Vaginal Review of Systems Constitutional: Denies: Fever, Night Sweats Eyes: Denies: Blurred vision HEENT: Denies: Ear Pain, Eye Pain, Head Aches, Nasal bleeding, Nasal Congestion Cardiovascular: Denies: Chest Pain Respiratory: Denies: Cough, Shortness of Breath, Shortness of breath upon exertion Gastrointestinal: Reports: Abdominal Pain, Nausea, Vomiting - starting in the afternoon after pain medicine. Denies: Constipation, Diarrhea Genitourinary: Reports: Dysuria, Hematuria Gynecological: Denies: Breast symptoms Musculoskeletal: Reports: Back Pain Skin: Denies: Dryness, Lesions Neurological: Denies: Blurred vision Psychiatric: Denies: Anxiety Endocrine: Denies: Polydipsia, Polyuria Hematologic/ Lymphatic: Denies: Adenopathy Physical Exam Vitals: Vital Signs Temp Pulse Resp BP Pulse Ox 98.4 F 91 20 H 163/91 H 97 10/19/19 10:16 10/19/19 11:51 10/19/19 11:51 10/19/19 11:51 10/19/19 11:23 General: Alert, Cooperative, No apparent distress HEENT: Atraumatic, Normocephalic. Negative for: Thyromegaly, Lymphadenopathy Cardiovascular: Regular rate Lungs: Normal air movement Abdomen: Soft, Non Tender, Gravid - nontender uterus, Tender - right flank, Extremities:: No edema Neurological: Deep Tendon Reflexes 2+/4 and Symmetrical, Neuro grossly intact. 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 Negative for: Vulvar lesions Estimated gestational size: Appropriate for gestational size Presentation: Cephalic Assessment/Plan All Active Problems (Last Reviewed 10/17/19 @ 08:25 by Mar Fernández) Low back pain (Acute) Dysuria during (Acute) Dysuria (Acute) Right flank pain (Acute) Twin (Acute) Supervision of high-risk (Acute) Obesity affecting (Acute) (Acute) This is a 24 year-old, at 25 weeks gestational age presents with flank pain radiating into abdomen Flank pain?IV fluids, extensive laboratory evaluation with the only abnormality being a borderline elevated white count and elevated creatinine. Hematuria. Urogyn consult with no surgical management recommendations indicated. Due to persistent uncontrollable pain additional imaging studies ordered and no additional findings made. Recommend ultrasound this morning. Suspect nephrolithiasis and recommend continuing aggressive fluids and pain control. Ceftriaxone given for possible kidney infection.
--- NOTE | 2019-10-20 07:51 | PN_ITS ---
Physical Exam Subjective: Did better overnight, pain increased about an hour ago. Still with nausea and vomiting. Pain is little higher in the back this morning. Objective: Renal ultrasound reviewed. Very minimal dilation of collecting system. Cr is increased today to 0.95. No significant increase in WBC. Urine culture pending. - Physical Exam Vital Signs Temp 98.4 F 10/19/19 10:16 Pulse 91 10/19/19 11:51 Resp 20 H 10/19/19 11:51 BP 163/91 H 10/19/19 11:51 Pulse Ox 97 10/19/19 11:23 Intake & Output 10/18/19 10/19/19 10/20/19 23:59 23:59 23:59 Intake Total 3921.67 / 3921.67 345 / 345 Output Total 2024 / 2024 750 / 750 Balance 1896.67 / 1896.67 -405 / -405 Weight: 129.5 kg Intake: Oral 1000 / 1000 IV fluid/meds 1390 / 1390 Intake, IV Amount 1531.67 / 1531.67 345 / 345 0.9% Normal Saline 1,000 ML @ 325 / 325 150 mls/hr IV .Q6H40M [facility] Rx#: [id number] Lactated Ringers 1,000 ML @ 100 656.67 / 656.67 345 / 345 mls/hr IV .Q10H [facility] Rx#: [id number] Lactated Ringers 1,000 ML @ 999 500.00 / 500.00 mls/hr IV .Q31M [facility] Rx#: [id number] Rocephin 1 gm In 50 ml @ 100 50 / 50 mls/hr IV Q24 [facility] Rx#:[id number] Output: Urine 925 / 925 450 / 450 Emesis 1100 / 1100 300 / 300 General: Alert, Oriented x3, Cooperative, No apparent distress HEENT: Atraumatic, Normocephalic Oral: Moist Mucosa Neck: Supple, Trachea Midline Lungs: Normal air movement Cardiovascular: Regular rate Abdomen: Gravid, - - right low back tenderness Rectal: Exam deferred Skin: No rashes Musculoskeletal: No Muscle Wasting Neurological: Cranial nerves II-XII grossly intact, Neuro grossly intact Psych/Mental Status: Normal Affect Laboratory Tests Past 24 Hrs 10/19/19 10/19/19 10/19/19 10:00 10:00 10:00 WBC 12.3 H RBC 4.06 L Hgb 10.8 L Hct 33.9 L MCV 83.5 MCH 26.6 L MCHC 31.9 L RDW Std Deviation 44.5 H RDW Coeff of Joey 14.7 H Plt Count 280 MPV 9.1 Immature Gran % (Auto) 1.200 H Neut % (Auto) 71.9 H Lymph % (Auto) 18.1 L [place] % (Auto) 7.4 Eos % (Auto) 1.0 Baso % (Auto) 0.4 Absolute Neuts (auto) 8.9 H Absolute Lymphs (auto) 2.23 Nucleated RBC % 0 Fibrinogen Sodium 138 Potassium 4.1 Chloride 108 H Carbon Dioxide 25.0 Anion Gap 5 BUN 11 Creatinine 0.81 Estim Creat Clear Calc 87.83 Est GFR (MDRD) Af Amer 111 Est GFR (MDRD) Non-Af 92 BUN/Creatinine Ratio 13.6 Glucose 88 Lactic Acid Uric Acid Calcium 9.1 Total Bilirubin 0.30 AST 7 L ALT 22 Alkaline Phosphatase 109 Lactate Dehydrogenase Total Protein 7.4 Albumin 3.0 L Globulin 4.4 H Albumin/Globulin Ratio 0.7 L Urine Color Yellow Urine Clarity Clear Urine pH 6.5 Ur Specific [place] 1.020 Urine Protein 30 H Urine Glucose (UA) Normal Urine Ketones Negative Urine Occult Blood 25 H Urine Nitrite Negative Urine Bilirubin Negative Urine Urobilinogen Normal Ur Leukocyte Esterase Negative Urine RBC 0 SEEN Urine WBC 0 SEEN Ur Squamous Epith Cells 5-10 SEEN Urine Bacteria 1+ Urine Mucus 0 SEEN Hep Bs Antigen 10/19/19 10/19/19 10/19/19 11:55 13:00 13:35 WBC RBC Hgb Hct MCV MCH MCHC RDW Std Deviation RDW Coeff of Joey Plt Count MPV Immature Gran % (Auto) Neut % (Auto) Lymph % (Auto) [place] % (Auto) Eos % (Auto) Baso % (Auto) Absolute Neuts (auto) Absolute Lymphs (auto) Nucleated RBC % Fibrinogen 598 H Sodium 139 Potassium 4.2 Chloride 111 H Carbon Dioxide 20.0 L Anion Gap 8 BUN 10 Creatinine 0.84 Estim Creat Clear Calc 84.69 Est GFR (MDRD) Af Amer 107 Est GFR (MDRD) Non-Af 88 BUN/Creatinine Ratio 12.0 Glucose 95 Lactic Acid 0.6 Uric Acid 4.1 Calcium 8.7 Total Bilirubin 0.20 AST 10 L ALT 19 Alkaline Phosphatase 104 Lactate Dehydrogenase 153 Total Protein 6.8 Albumin 2.8 L Globulin 4.0 Albumin/Globulin Ratio 0.7 L Urine Color Urine Clarity Urine pH Ur Specific [place] Urine Protein Urine Glucose (UA) Urine Ketones Urine Occult Blood Urine Nitrite Urine Bilirubin Urine Urobilinogen Ur Leukocyte Esterase Urine RBC Urine WBC Ur Squamous Epith Cells Urine Bacteria Urine Mucus Hep Bs Antigen 10/19/19 10/19/19 10/19/19 16:05 21:10 21:10 WBC 15.8 H RBC 3.90 L Hgb 10.3 L Hct 33.2 L MCV 85.1 MCH 26.4 L MCHC 31.0 L RDW Std Deviation 43.9 RDW Coeff of Joey 14.3 Plt Count 230 MPV 8.9 Immature Gran % (Auto) 1.200 H Neut % (Auto) 86.0 H Lymph % (Auto) 7.0 L [place] % (Auto) 5.5 Eos % (Auto) 0.0 Baso % (Auto) 0.3 Absolute Neuts (auto) 13.6 H Absolute Lymphs (auto) 1.11 Nucleated RBC % 0 Fibrinogen 582 H Sodium Potassium Chloride Carbon Dioxide Anion Gap BUN Creatinine Estim Creat Clear Calc Est GFR (MDRD) Af Amer Est GFR (MDRD) Non-Af BUN/Creatinine Ratio Glucose Lactic Acid Uric Acid Calcium Total Bilirubin AST ALT Alkaline Phosphatase Lactate Dehydrogenase Total Protein Albumin Globulin Albumin/Globulin Ratio Urine Color Urine Clarity Urine pH Ur Specific [place] Urine Protein Urine Glucose (UA) Urine Ketones Urine Occult Blood Urine Nitrite Urine Bilirubin Urine Urobilinogen Ur Leukocyte Esterase Urine RBC Urine WBC Ur Squamous Epith Cells Urine Bacteria Urine Mucus Hep Bs Antigen Pending 10/19/19 10/19/19 10/20/19 21:10 23:25 04:30 WBC 13.4 H RBC 3.45 L Hgb 8.9 L Hct 29.1 L MCV 84.3 MCH 25.8 L MCHC 30.6 L RDW Std Deviation 44.6 H RDW Coeff of Joey 14.6 Plt Count 235 MPV 9.2 Immature Gran % (Auto) 0.800 Neut % (Auto) 76.3 H Lymph % (Auto) 15.3 L [place] % (Auto) 7.2 Eos % (Auto) 0.1 Baso % (Auto) 0.3 Absolute Neuts (auto) 10.2 H Absolute Lymphs (auto) 2.05 Nucleated RBC % 0 Fibrinogen Sodium 139 Potassium 4.0 Chloride 106 Carbon Dioxide 22.0 Anion Gap 11 BUN 10 Creatinine 0.91 Estim Creat Clear Calc 78.18 Est GFR (MDRD) Af Amer 97 Est GFR (MDRD) Non-Af 80 BUN/Creatinine Ratio 11.0 Glucose 82 Lactic Acid 0.7 Uric Acid Calcium 8.6 Total Bilirubin 0.30 AST 9 L ALT 19 Alkaline Phosphatase 104 Lactate Dehydrogenase 126 Total Protein 6.7 Albumin 2.7 L Globulin 4.0 Albumin/Globulin Ratio 0.7 L Urine Color Urine Clarity Urine pH Ur Specific [place] Urine Protein Urine Glucose (UA) Urine Ketones Urine Occult Blood Urine Nitrite Urine Bilirubin Urine Urobilinogen Ur Leukocyte Esterase Urine RBC Urine WBC Ur Squamous Epith Cells Urine Bacteria Urine Mucus Hep Bs Antigen 10/20/19 04:30 WBC RBC Hgb Hct MCV MCH MCHC RDW Std Deviation RDW Coeff of Joey Plt Count MPV Immature Gran % (Auto) Neut % (Auto) Lymph % (Auto) [place] % (Auto) Eos % (Auto) Baso % (Auto) Absolute Neuts (auto) Absolute Lymphs (auto) Nucleated RBC % Fibrinogen Sodium 137 Potassium 3.6 Chloride 107 Carbon Dioxide 21.0 Anion Gap 9 BUN 9 Creatinine 0.95 Estim Creat Clear Calc 74.88 Est GFR (MDRD) Af Amer 92 Est GFR (MDRD) Non-Af 76 BUN/Creatinine Ratio 9.5 L Glucose 93 Lactic Acid Uric Acid Calcium 8.6 Total Bilirubin 0.40 AST 10 L ALT 18 Alkaline Phosphatase 96 Lactate Dehydrogenase Total Protein 6.3 L Albumin 2.5 L Globulin 3.8 Albumin/Globulin Ratio 0.7 L Urine Color Urine Clarity Urine pH Ur Specific [place] Urine Protein Urine Glucose (UA) Urine Ketones Urine Occult Blood Urine Nitrite Urine Bilirubin Urine Urobilinogen Ur Leukocyte Esterase Urine RBC Urine WBC Ur Squamous Epith Cells Urine Bacteria Urine Mucus Hep Bs Antigen Medical Necessity - Tobacco Use Smoking Status: Never smoker Assessment/Plan All Active Problems (Last Reviewed 10/17/19 @ 08:25 by Mar Fernández) Low back pain (Acute) Dysuria during (Acute) Dysuria (Acute) Right flank pain (Acute) Twin (Acute) Supervision of high-risk (Acute) Obesity affecting (Acute) (Acute) plan to watch today, add onto schedule for tomorrow morning for cystoscopy and right stent insertion if pain continues and Cr increases. continue antibiotics and await culture results continue supportive care follow closely
[2019-10-20] MEDS: Lactated Ringers 500 ML 999 ML IV (08:41)
[2019-10-20 09:34] LABS: Hepatitis B Surface Antigen Non-Reactive (Nonreactive)
[2019-10-20] MEDS: Ceftriaxone 1 GM/50 ML BAG IV (10:13)
[2019-10-20] MEDS: 0.9 % NaCl (Sterile) Posiflush 10 mL IV ×2 (10:13→10:51)
--- NOTE | 2019-10-20 11:45 | CALC_PTH ---
PATIENT: MILANA DIAZ LOC: [facility] U#:[id number] AGE/SX: 24/F ROOM: [facility]012 RE10/19/[address]: Dr. Nicole Reagan MD : [id number] BED: 1 DIS: 10/20/2019 SPEC #: [id number] RECD: 10/20/19 15:54 STATUS: LUIS RESylvester #: [id number] LUANN: 10/20/19 11:[address]: Nicole Reagan DEPT: SURGICAL PATHOLOGY RECD BY: Jesus Zazueta ENTERED: 10/21/19 09:23 SP TYPE: Calculi OTHR DR: MD Dr. Cassie Bush MD Tissues: CALCULI Procedures: Surgery Specimen Level I HEADER OPERATION: Not noted PRE-OP DIAGNOSIS: Kidney stone TISSUE SUBMITTED: Kidney stone GROSS DIAGNOSIS Fragment of stone, clinically kidney stone. SJ:efrem 10/21/19 COMMENT If chemical analysis is requested on this specimen, please notify the laboratory. GROSS DESCRIPTION Received is one container labeled with the patient's name and not further designated. The specimen consists of a fragment of tracy-white stone measuring 0.3 x 0.2 x 0.1 cm. The stone is saved for analysis, if needed. / SJ:efrem 10/21/19 CPT: 96113
[2019-10-20 15:50] LABS: Pathology Specimen OB SEE PATHOLOGY REPORT
== END 2019-10-20 13:45 | disposition home or self-care (01) | DRG 832 ==
LOC: ED 10:24 → WP 12:24 → ED 10-20 11:25 → WP 10-20 11:28
PROVIDERS: Admitting Provider Obstetrics & Gynecology; Emergency Provider Emergency Medicine; PCP Family Medicine; Visit Provider Obstetrics & Gynecology
DX: O26.892 Other specified pregnancy related conditions, second trimester (principal); N13.30 Unspecified hydronephrosis; Z3A.25 25 weeks gestation of pregnancy; R31.9 Hematuria, unspecified; R10.9 Unspecified abdominal pain; E66.9 Obesity, unspecified; O99.212 Obesity complicating pregnancy, second trimester; R30.0 Dysuria; O30.042 Twin pregnancy, dichorionic/diamniotic, second trimester; O99.89 Other specified diseases and conditions complicating pregnancy, childbirth and the puerperium
CPT/HCPCS: 36415; 59050; 74176; 76705; 76770; 76816; 80053; 81001; 83605; 83615; 84550; 85025; 85384; 87086; 87340; 88300; 99218; 99283; J7030; J7120; A4216; G0378; J2405

== ENCOUNTER → 2019-11-07 13:50 | Outpatient (CLI) | payer OTHER, SELFPAY ==
[2019-11-07 13:19] VITALS: BMI 50.5
[2019-11-07 15:34] LABS: Absolute Lymphocyte Count 1.86 X10^3/uL (0.83-4.51); Absolute Neutrophil Count 8.3 X10^3/uL (2.0-7.7); Basophil# 0.04 X10^3/uL; Basophil% 0.4 % (0-1); Eosinophil# 0.05 X10^3/uL; Eosinophils% 0.4 % (0-5); Hematocrit 33.9 % (37-47); Hemoglobin 10.5 g/dL (12.0-15.0); Lymphocyte # 1.86 X10^3/ul (4.0); Lymphocyte % 16.7 % (19-41); Mean Corpuscular Hgb 26.4 pg (27.0-32.0); Mean Corpuscular Volume 85.2 fL (81-99); Mean Platelet Vol. 9.7 fl (6.2-12.0); Monocyte# 0.74 X10^3/uL; Monocyte% 6.6 % (0-10); NRBC Flagged by Analyzer 0 % (0-5); Neutrophil # 8.33 X10^3/uL (2.7-7.7); Neutrophil % 74.9 % (47-70); Platelet Count 260 K/mm3 (150-450); RBC Distribution Width CV 14.2 % (11.6-14.6); RBC Distribution Width SD 44.1 fl (35.1-43.9); Red Blood Count 3.98 M/mm3 (4.2-5.4); White Blood Count 11.1 K/mm3 (4.4-11.0)
[2019-11-07 16:05] LABS: Glucose Challenge Gest 1H 50g 102 mg/dL (70-140)
== END ==
PROVIDERS: PCP Family Medicine; Referring Provider Obstetrics & Gynecology; Visit Provider Obstetrics & Gynecology
DX: O09.90 Supervision of high risk pregnancy, unspecified, unspecified trimester (principal); Z3A.00 Weeks of gestation of pregnancy not specified
CPT/HCPCS: 36415; 82950; 85025

== ENCOUNTER 2019-12-01 09:55 | Outpatient (CLI) | payer OTHER, SELFPAY ==
[2019-10-20 08:47] VITALS: TEMP 37.5
[2019-10-20 11:46] VITALS: BP 101/67; PULSE 102
[2019-11-21 08:11] VITALS: BMI 50.5
[2019-12-01 10:01] VITALS: BMI 49.8
[2019-12-01 10:15] VITALS: BP 134/77; PULSE 108; TEMP 37.5
--- NOTE | 2019-12-03 14:30 | OB.TRI.PN ---
Progress Notes Date of Service: 12/01/19 Progress Note: Patient presents for triage evaluation secondary to twins FHT: A 140 Moderate variability reactive no decelerations category I tracing B 140 Moderate variability reactive no decelerations category I tracing [place]: No regular contractions Assessment and plan: Twins testing reactive NST, reassuring maternal and status patient discharged to home to follow-up as scheduled. See problem list details for additional plan information. - Problem List (1) Supervision of high-risk Status: Acute Qualifiers: Comment: PRR MIKAYLA 01/28/20 Yary Adkins Marlee Rubio (2) Twin Status: Acute Comment: Di/Di, growth every 4 weeks after 28, delivery by 38. Growth US 11/06 normal Multi Select Codes - Urinary/Genital Urinary/Genital CPT Codes: 76262-11 non-stress test Interp
== END 2019-12-01 10:51 | disposition home or self-care (01) ==
LOC: WPOUT 09:59 → OBT 10:00
PROVIDERS: PCP Family Medicine; Referring Provider Obstetrics & Gynecology; Visit Provider Obstetrics & Gynecology
DX: O30.049 Twin pregnancy, dichorionic/diamniotic, unspecified trimester (principal); Z3A.00 Weeks of gestation of pregnancy not specified
CPT/HCPCS: 59025

== ENCOUNTER 2019-12-08 08:50 | Outpatient (CLI) | payer OTHER, SELFPAY ==
[2019-12-08 09:30] VITALS: BP 129/74; PULSE 109; TEMP 36.8
[2019-12-08 09:38] VITALS: BMI 49.8
--- NOTE | 2019-12-09 01:27 | OB.TRI.PN ---
Progress Notes Date of Service: 12/08/19 Progress Note: FHT: A 150 Moderate variability reactive no decelerations category I tracing B 150 Moderate variability reactive no decelerations category I tracing [place]: no regular Contractions twins- testing with nsts- reactive - Problem List (1) Status: Acute Qualifiers: Comment: declined invasive genetic, carrier, and NTD screening. NT normal for DI/DI twin (2) Twin Status: Acute Comment: Di/Di, growth every 4 weeks after 28, delivery by 38. Growth US 11/06 normal Multi Select Codes - Urinary/Genital Urinary/Genital CPT Codes: 75409-01 non-stress test Interp
== END 2019-12-08 09:40 | disposition home or self-care (01) ==
LOC: WPOUT 08:56 → OBT 08:56
PROVIDERS: PCP Family Medicine; Referring Provider Obstetrics & Gynecology; Visit Provider Obstetrics & Gynecology
DX: O30.049 Twin pregnancy, dichorionic/diamniotic, unspecified trimester (principal); Z3A.00 Weeks of gestation of pregnancy not specified
CPT/HCPCS: 59025; 99218; G0378

== ENCOUNTER 2019-12-15 09:00 | Outpatient (CLI) | payer OTHER, SELFPAY ==
[2019-12-15 09:12] VITALS: BP 136/80; PULSE 92; TEMP 37.1; O2SAT 98
[2019-12-15 09:15] VITALS: BMI 51.5
[2019-12-15 10:21] VITALS: BP 131/81; PULSE 93
[2019-12-15 10:23] VITALS: BP 117/70; PULSE 95
[2019-12-15 11:57] VITALS: BP 130/80; PULSE 98
--- NOTE | 2019-12-16 09:32 | OB.TRI.PN_ITS ---
Progress Notes Date of Service: 12/15/19 Progress Note: FHT: A 150 Moderate variability reactive no decelerations category I tracing B 150 Moderate variability reactive no decelerations category I tracing [place]: no regular Contractions nst sec to twins. reassuring Multi Select Codes - Urinary/Genital Urinary/Genital CPT Codes: 18196-35 non-stress test Interp
== END 2019-12-15 10:40 | disposition home or self-care (01) ==
LOC: WPOUT 09:03 → OBT 09:04
PROVIDERS: PCP Family Medicine; Referring Provider Obstetrics & Gynecology; Visit Provider Obstetrics & Gynecology
DX: O30.009 Twin pregnancy, unspecified number of placenta and unspecified number of amniotic sacs, unspecified trimester (principal); Z3A.00 Weeks of gestation of pregnancy not specified
CPT/HCPCS: 59025; 99218; G0378

== ENCOUNTER 2019-12-17 18:02 | Outpatient (CLI) | payer OTHER, SELFPAY ==
[2019-12-17] VITALS (8 sets, daily range): BP systolic 117–139; BP diastolic 67–78; PULSE 91–108; RESP 18; BMI 52.4
[2019-12-17] MEDS: oxyCODONE 5 MG Tablet PO (19:32)
--- NOTE | 2019-12-23 14:21 | OB.TRI.PN_ITS ---
Progress Notes Date of Service: 12/17/19 Progress Note: FHT: A 140 Moderate variability reactive no decelerations category I tracing B145 Moderate variability reactive no decelerations category I tracing [place]: Irregular contractions ST secondary to twin gestation. Reassuring DC home kick counts Multi Select Codes - Urinary/Genital Urinary/Genital CPT Codes: 87484-59 non-stress test Interp
== END 2019-12-17 20:30 | disposition home or self-care (01) ==
LOC: WPOUT 18:03 → OBT 18:03
PROVIDERS: PCP Family Medicine; Visit Provider Obstetrics & Gynecology
DX: O30.009 Twin pregnancy, unspecified number of placenta and unspecified number of amniotic sacs, unspecified trimester (principal); Z3A.00 Weeks of gestation of pregnancy not specified
CPT/HCPCS: 59025; 59050; 99218; G0378

== ENCOUNTER → 2019-12-19 08:38 | Outpatient (CLI) | payer OTHER, SELFPAY ==
[2019-12-19 08:02] VITALS: BMI 52.1
[2019-12-19 08:53] LABS: Absolute Lymphocyte Count 1.73 X10^3/uL (0.83-4.51); Absolute Neutrophil Count 7.3 X10^3/uL (2.0-7.7); Basophil# 0.03 X10^3/uL; Basophil% 0.3 % (0-1); Eosinophil# 0.09 X10^3/uL; Eosinophils% 0.9 % (0-5); Hematocrit 33.1 % (37-47); Hemoglobin 10.5 g/dL (12.0-15.0); Lymphocyte # 1.73 X10^3/ul (4.0); Lymphocyte % 17.3 % (19-41); Mean Corp Hgb Conc 31.7 g/dL (32-36); Mean Corpuscular Hgb 26.1 pg (27.0-32.0); Mean Corpuscular Volume 82.3 fL (81-99); Mean Platelet Vol. 9.4 fl (6.2-12.0); Monocyte# 0.73 X10^3/uL; Monocyte% 7.3 % (0-10); NRBC Flagged by Analyzer 0 % (0-5); Neutrophil # 7.32 X10^3/uL (2.7-7.7); Neutrophil % 73.3 % (47-70); Platelet Count 214 K/mm3 (150-450); RBC Distribution Width CV 14.2 % (11.6-14.6); RBC Distribution Width SD 42.5 fl (35.1-43.9); Red Blood Count 4.02 M/mm3 (4.2-5.4)
[2019-12-19 09:09] LABS: ALB/GLOB Ratio 0.6 RATIO (0.9-2.4); AST(SGOT) 9 U/L (15-37); Alanine Aminotransfer ALT/SGPT 15 U/L (13-56); Albumin, Serum 2.5 g/dL (3.2-5.0); Alkaline Phosphatase 186 U/L (45-117); Anion Gap 10 (5-15); BUN 8 mg/dL (7-18); BUN/Creat Ratio 10.3 RATIO (10-20); Calcium,Total 9.4 mg/dL (8.5-10.1); Chloride 110 mmol/L (98-107); Creatinine, Serum 0.78 mg/dL (0.55-1.02); EST Glomerular Filtration Rate 96 mL/min (>60); Est Glom Filt Rate - Afr Amer 116 mL/min (>60); Globulin 4.1 g/dL (2.2-4.2); Glucose 125 mg/dL (74-106); Potassium 3.8 mmol/L (3.5-5.1); Protein, Total 6.6 g/dL (6.4-8.2); Sodium Level 140 mmol/L (136-145)
== END ==
PROVIDERS: PCP Family Medicine; Referring Provider Obstetrics & Gynecology; Visit Provider Obstetrics & Gynecology
DX: O99.019 Anemia complicating pregnancy, unspecified trimester (principal); O30.009 Twin pregnancy, unspecified number of placenta and unspecified number of amniotic sacs, unspecified trimester; Z3A.00 Weeks of gestation of pregnancy not specified
CPT/HCPCS: 36415; 80053; 85025

== ENCOUNTER 2019-12-22 09:00 | Outpatient (CLI) | payer OTHER, SELFPAY ==
[2019-12-19 08:02] VITALS: BMI 52.1
[2019-12-22 09:36] VITALS: BP 133/75; PULSE 100
--- NOTE | 2019-12-23 14:24 | OB.TRI.PN ---
Progress Notes Date of Service: 12/23/19 Progress Note: FHT: A 145 Moderate variability reactive no decelerations category I tracing B 140 Moderate variability reactive no decelerations category I tracing [place]: Irregular contractions NST secondary to twin gestation. Reassuring DC home fu routine care, kick counts Multi Select Codes - Urinary/Genital Urinary/Genital CPT Codes: 89360-66 non-stress test Interp
== END 2019-12-22 10:40 | disposition home or self-care (01) ==
PROVIDERS: PCP Family Medicine; Referring Provider Obstetrics & Gynecology; Visit Provider Obstetrics & Gynecology
DX: O30.009 Twin pregnancy, unspecified number of placenta and unspecified number of amniotic sacs, unspecified trimester (principal); Z3A.00 Weeks of gestation of pregnancy not specified
CPT/HCPCS: 59025; 59050; 99218; G0378

== ENCOUNTER 2019-12-25 21:17 | Outpatient (CLI) | payer OTHER, SELFPAY ==
[2019-12-19 08:02] VITALS: BMI 52.1
[2019-12-25 21:40] VITALS: BP 130/78; PULSE 95; O2SAT 97
[2019-12-25 21:41] VITALS: TEMP 37.3
[2019-12-25 22:09] VITALS: BMI 52.5
[2019-12-25] MEDS: Calcium Carbonate 500 MG Tablet PO (22:39)
--- NOTE | 2019-12-26 07:48 | OB.TRI.PN ---
Progress Notes Date of Service: 12/25/19 Progress Note: Patient presents for triage evaluation secondary to false labor 34 weeks twins FHT: A 150 Moderate variability reactive no decelerations category I tracing B 150 Moderate variability reactive no decelerations category I tracing [place]: q 3-8 Contractions Assessment and plan: false labor cervix 3 cm but no cervical change, Reactive NST, reassuring maternal and status patient discharged to home to follow-up as scheduled. See problem list details for additional plan information. Multi Select Codes - Urinary/Genital Urinary/Genital CPT Codes: 85731-63 non-stress test Interp
[2019-12-29 09:09] VITALS: BP 133/74; PULSE 86
== END 2019-12-26 00:15 | disposition home or self-care (01) ==
LOC: WPOUT 21:24 → OBT 21:24
PROVIDERS: PCP Family Medicine; Visit Provider Obstetrics & Gynecology
DX: O47.03 False labor before 37 completed weeks of gestation, third trimester (principal); Z3A.34 34 weeks gestation of pregnancy; O30.003 Twin pregnancy, unspecified number of placenta and unspecified number of amniotic sacs, third trimester
CPT/HCPCS: 59025; 59050; 99218; G0378

== ENCOUNTER 2019-12-29 09:00 | Outpatient (CLI) | payer OTHER, SELFPAY ==
[2019-12-29 09:09] VITALS: TEMP 36.9; O2SAT 98
[2019-12-29 09:20] VITALS: BMI 53.1
[2019-12-29 10:40] VITALS: RESP 18
--- NOTE | 2019-12-29 11:00 | OB.TRI.PN_ITS ---
Progress Notes Date of Service: 12/29/19 Progress Note: FHT: A 150 Moderate variability reactive no decelerations category I tracing B 150 Moderate variability reactive no decelerations category I tracing [place]: no Contractions reactive testing for twins Multi Select Codes - Urinary/Genital Urinary/Genital CPT Codes: 68721-26 non-stress test Interp
== END 2019-12-29 10:40 | disposition home or self-care (01) ==
PROVIDERS: PCP Family Medicine; Referring Provider Obstetrics & Gynecology; Visit Provider Obstetrics & Gynecology
DX: O30.009 Twin pregnancy, unspecified number of placenta and unspecified number of amniotic sacs, unspecified trimester (principal); Z3A.00 Weeks of gestation of pregnancy not specified
CPT/HCPCS: 59025; 59050; 99218; G0378

== ENCOUNTER → 2020-01-02 09:30 | Outpatient (CLI) | payer OTHER, SELFPAY ==
[2020-01-02 09:25] VITALS: BMI 53.1
== END ==
PROVIDERS: PCP Family Medicine; Visit Provider Obstetrics & Gynecology
DX: O30.009 Twin pregnancy, unspecified number of placenta and unspecified number of amniotic sacs, unspecified trimester (principal)
CPT/HCPCS: 87081

== ENCOUNTER 2020-01-05 11:26 | Inpatient (IN) | payer OTHER, SELFPAY ==
[2020-01-02 09:25] VITALS: BMI 53.1
[2020-01-05] VITALS (34 sets, daily range): BP systolic 125–156; BP diastolic 64–90; PULSE 65–143; RESP 16–18; TEMP 36.7–37.9; O2SAT 82–99; BMI 53.6
--- NOTE | 2020-01-05 09:31 | US_ITS ---
STUDY: OBSTETRICAL ULTRASOUND - BIOPHYSICAL PROFILE REASON FOR EXAM: Female, 24 years old TWINS BPP -- B-D CELL IN NST LMP: April 23, 2019. PRIOR ULTRASOUND: None. TECHNIQUE: Transabdominal TECHNICAL QUALITY: Adequate. FINDINGS: There is a single intrauterine fetus. The fetus is in a transverse lie with the head on the maternal right side. There is demonstrated cardiac activity with a heart rate of 160 bpm. There is a normal amniotic fluid volume. The largest amniotic fluid pocket measures 4.8 cm x 5.3 cm. The amniotic fluid index (ARNALDO) is 12.3 cm. The placenta is posterior in location and is not low lying. There are Grade 2 placental changes. Age by LMP: 36 weeks, 5 days. MIKAYLA by LMP: January 28, 2020. age by prior US: 36 weeks, 6 days. MIKAYLA by prior US: January 27, 2020. BIOPHYSICAL PROFILE: Breathing Movements (FBM): 0 Gross Body Movements (GBM): 2 Tone (FT): 0 Amniotic Fluid Volume (AFV): 2 TOTAL SCORE: 4 / 8 IMPRESSION: Abnormal biophysical profile of 4/8. Electronically Signed: Roni Lauren, at 12:35 EDT , Service support , STUDY: OBSTETRICAL ULTRASOUND - BIOPHYSICAL PROFILE REASON FOR EXAM: Female, 24 years old TWINS BPP -- B-D CELL IN NST. Baby A. LMP: April 23, 2019 PRIOR ULTRASOUND: None. TECHNIQUE: Transabdominal TECHNICAL QUALITY: Adequate. FINDINGS: There is a single intrauterine fetus. The fetus is in a cephalic presentation. There is demonstrated cardiac activity with a heart rate of 163 bpm. There is a normal amniotic fluid volume. The largest amniotic fluid pocket measures 4.3 cm. The amniotic fluid index (ARNALDO) is 14.5 cm. The placenta is posterior in location and is not low lying. There are Grade 2 placental changes. Age by LMP: 36 weeks, 5 days. MIKAYLA by LMP: January 28, 2020. age by prior US: 37 weeks, 4 days. MIKAYLA by prior US: January 21, 2020. BIOPHYSICAL PROFILE: Breathing Movements (FBM): 2 Gross Body Movements (GBM): 2 Tone (FT): 2 Amniotic Fluid Volume (AFV): 2 TOTAL SCORE: US/Biophysical Profile IMPRESSION: Normal biophysical profile of 04/03. Electronically Signed: Roni Lauren, at 12:38 EDT , Service support ,
--- NOTE | 2020-01-05 09:32 | OB.TRI.PN ---
Progress Notes Date of Service: 01/05/20 Progress Note: baby b variables- bpp 12/02 plan immediate delivery
[2020-01-05] MEDS: Lactated Ringers 1,000 ML 999 ML IV (11:35)
[2020-01-05 11:54] LABS: Absolute Lymphocyte Count 1.99 X10^3/uL (0.83-4.51); Absolute Neutrophil Count 6.5 X10^3/uL (2.0-7.7); Basophil# 0.04 X10^3/uL; Basophil% 0.4 % (0-1); Eosinophil# 0.04 X10^3/uL; Eosinophils% 0.4 % (0-5); Hematocrit 35.3 % (37-47); Lymphocyte # 1.99 X10^3/ul (4.0); Mean Corp Hgb Conc 31.2 g/dL (32-36); Mean Corpuscular Hgb 26.3 pg (27.0-32.0); Mean Corpuscular Volume 84.4 fL (81-99); Mean Platelet Vol. 10.6 fl (6.2-12.0); Monocyte# 0.77 X10^3/uL; Monocyte% 8.1 % (0-10); NRBC Flagged by Analyzer 0 % (0-5); Neutrophil # 6.54 X10^3/uL (2.7-7.7); Platelet Count 214 K/mm3 (150-450); RBC Distribution Width CV 14.3 % (11.6-14.6); Red Blood Count 4.18 M/mm3 (4.2-5.4); White Blood Count 9.5 K/mm3 (4.4-11.0)
[2020-01-05] MEDS: Sodium Citrate/Citric Acid 30 ML UDC PO (11:58)
--- NOTE | 2020-01-05 13:30 | PCM.HP.OB ---
- Problem List (1) Abnormal test Status: Acute (2) Anemia affecting Status: Acute Comment: Start iron, recheck CBC at 34 weeks (3) Breech presentation of fetus Status: Acute Comment: plan primary for breech second twin (4) Nephrolithiasis Status: Acute (5) Obesity affecting Status: Acute Qualifiers: Trimester: first trimester Qualified Code(s): O99.211 - Obesity complicating , first trimester Comment: 1 tm glucola nl, testing after 32 weeks on l and d (6) Status: Acute Qualifiers: Weeks of gestation: 36 weeks Qualified Code(s): Z3A.36 - 36 weeks gestation of Comment: declined invasive genetic, carrier, and NTD screening. NT normal for DI/DI twin (7) Supervision of high-risk Status: Acute Qualifiers: Comment: PRR MIKAYLA 01/28/20 Yary Adkins Marlee Rubio (8) Twin Status: Acute Comment: Di/Di, growth every 4 weeks after 28, delivery by 38. Growth US 11/06, 12/03 normal. weekly NSTs starting at 32 weeks in WP History Date of Admission: 10/20/19 Final MIKAYLA: 01/28/20 Gestational age: 36 Weeks and 5 Days History of this : This is a 24 year-old, at 36 weeks gestational age presents secondary to 4/8 bpp and heart rate variable decelerations on routine testing. she denies any vb or lof, admits good fm. baby A had an 8/8 BPP but baby B had only gross movement no fine, and no breathing. the decision was made to proceed with immediate delivery.. Allergies No Known Allergies Allergy (Verified 01/05/20 09:23) Home Medications: Home Medications Ferrous Sulfate [Iron] 325 mg PO DAILY 10/12/19 Folic Acid 1 mg PO DAILY 10/12/19 Vits [Prenatabs FA ] 1 tab PO DAILY 10/12/19 Famotidine 20 mg PO DAILY 12/01/19 blood pressure test kit-large See Rx Instructions .ROUTE .MEDSUPPLY #1 ea 12/19/19 Smoking Status: Never smoker Alcohol: None Number of Fetus(es): 2 NST - FHR Rate Baby A Baseline: 150 Variability:: Moderate Accelerations:: 15 x 15 Decelerations:: None NST Reactive:: Yes FHR Category:: Category I Uterine Activity:: irregular - FHR Rate Baby B Baseline: 150 Variability:: Moderate Accelerations:: 15 x 15 Decelerations:: Variable - down to the 70s NST Reactive:: Yes FHR Category:: Category II History Past Pregnancies: Past Pregnancies previous term Labs: Mom's Labs & Results 01/05/20 01/05/20 11:35 11:35 WBC 9.5 RBC 4.18 L Hgb 11.0 L Hct 35.3 L MCV 84.4 MCH 26.3 L MCHC 31.2 L RDW Std Deviation 43.0 RDW Coeff of Joey 14.3 Plt Count 214 MPV 10.6 Immature Gran % (Auto) 1.100 H Neut % (Auto) 69.0 Lymph % (Auto) 21.0 [place] % (Auto) 8.1 Eos % (Auto) 0.4 Baso % (Auto) 0.4 Absolute Neuts (auto) 6.5 Absolute Lymphs (auto) 1.99 Nucleated RBC % 0 Blood Type O POSITIVE Antibody Screen NEGATIVE Course Did the patient receive Yes care? Labs Blood Type: O RH: POSITIVE RPR/VDRL/Syphilis Nonreactive Rubella status Immune HbSAg Negative Date Done: 10/19/19 Chlamydia Negative Gonorrhea Negative HIV/AIDS Non-Reactive Group B Strep: Negative Current Obstetrical History Gestational Diabetes No Incompetent Cervix No Infertility No IUGR No Macrosomia No Hypertension/Pre-eclampsia No Placenta Previa/Abruption No PTL/PROM No Uterine anomaly No Oligohydramnios No Polyhydramnios No Multiple gestation Yes Past Medical History Asthma No Diabetes No Hypertension No Heart disease No Mitral valve prolapse No Neurologic/Seizure disorder/ No Migraines Kidney disease Yes: kidney stone Liver disease No Varicosities No Clotting disorders/Hx of DVT No Thyroid Dysfunction No Other medical diseases No Psychiatric disorders Yes: depression Major trauma No Abnormal PAP smear No Sleep apnea No Mammogram in the last 2 years No Social History Marital Status: Alleged father AJ Hx Smoking No Smoking Status Never smoker How long have you used na substances (years)? Expected Delivery Method: Primary Section - for vertex/breech and 8 bpp Review of Systems Constitutional: Denies: Fever, Malaise Eyes: Denies: Blurred vision, Vision Change HEENT: Denies: Head Aches, Visual Changes Cardiovascular: Denies: Chest Pain, Palpitations Respiratory: Denies: Cough, Shortness of Breath, Wheezing Gastrointestinal: Denies: Abdominal Pain, Diarrhea, Nausea, Vomiting Genitourinary: Denies: Dysuria, Hematuria Musculoskeletal: Denies: Joint Pain, Muscle pain Skin: Denies: Lesions, Rash Neurological: Denies: Blurred vision, Focal weakness, Headaches Psychiatric: Denies: Anxiety, Depression Endocrine: Denies: Heat/ Cold Intolerance Hematologic/ Lymphatic: Denies: Easy Bruising, Easy Bleeding Physical Exam Vitals: Vital Signs Temp Pulse BP Pulse Ox 99.1 F 93 132/70 H 98 01/05/20 09:12 01/05/20 09:12 01/05/20 09:12 01/05/20 09:12 General: Alert, Cooperative, No apparent distress HEENT: Atraumatic, Normocephalic. Negative for: Thyromegaly, Lymphadenopathy Cardiovascular: Regular rate Lungs: Normal air movement Abdomen: Soft, Non Tender, Gravid Neurological: Deep Tendon Reflexes 2+/4 and Symmetrical, Neuro grossly intact. Negative for: Clonus DRAFTER ELECTROMECHANICAL: Normal external genitalia. Negative for: Vulvar lesions Estimated gestational size: Appropriate for gestational size Presentation: Cephalic - breech Assessment/Plan All Active Problems (Last Reviewed 01/02/20 @ 09:24 by Kourtney Fernandes) Abnormal test (Acute) Breech presentation of fetus (Acute) Anemia affecting (Acute) Nephrolithiasis (Acute) Twin (Acute) Supervision of high-risk (Acute) Obesity affecting (Acute) (Acute) Dysuria (Resolved) Dysuria during (Resolved) Low back pain (Resolved) Right flank pain (Resolved) Visual changes (Resolved) This is a 24 year-old, at 36 weeks gestational age with heart rate variables and 4/8 BPP on twin B- proceed with immediate delivery, plan LTCS due to positioning
--- NOTE | 2020-01-05 13:34 | PCM.OPRPT ---
Problem List (1) Abnormal test Status: Acute (2) Anemia affecting Status: Acute Comment: Start iron, recheck CBC at 34 weeks (3) Breech presentation of fetus Status: Acute Comment: plan primary for breech second twin (4) Nephrolithiasis Status: Acute (5) Obesity affecting Status: Acute Qualifiers: Trimester: first trimester Qualified Code(s): O99.211 - Obesity complicating , first trimester Comment: 1 tm glucola nl, testing after 32 weeks on l and d (6) Status: Acute Qualifiers: Weeks of gestation: 36 weeks Qualified Code(s): Z3A.36 - 36 weeks gestation of Comment: declined invasive genetic, carrier, and NTD screening. NT normal for DI/DI twin (7) Supervision of high-risk Status: Acute Qualifiers: Comment: PRR MIKAYLA 01/28/20 Yary Adkins [facility] Marlee Rubio (8) Twin Status: Acute Comment: Di/Di, growth every 4 weeks after 28, delivery by 38. Growth US 11/06, 12/03 normal. 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 She was having routine testing with an NST today and heart rate variables were noted down to the 70s on the NST and therefore BPP's were completed and baby A had an 8 out of 8 but baby B had a 4 out of 8 offer fine movement and breathing. The decision to proceed with immediate delivery was made. Due to vertex breech presentation the patient requested proceeding with primary . Spinal anesthesia was placed without difficulty. Zepeda catheter was placed. The patient was placed in the dorsal supine position with leftward tilt. Patient was prepped and draped in the normal sterile fashion. Pfannenstiel skin incision was made with the scalpel and carried through to the underlying layer of fascia with the scalpel. Fascia was nicked in the midline and the incision extended laterally. The rectus bellies were dissected off superiorly and inferiorly with out complication both sharply and bluntly. The peritoneum was entered digitally. The incision was stretched and a low transverse uterine incision was made with the scalpel. The 's head was delivered atraumatically followed by the anterior and posterior shoulders without complication the rest of the infant delivered. The cord was clamped and cut and the infant was handed off to awaiting nurse. The second was converted to vertex and the amniotic sac ruptured and meconium fluid was noted and the head was delivered to a tight nuchal cord x2 was reduced over the 's head and the rest the delivered without complication. The placenta was delivered spontaneously immediately following and was noted to be intact and have a three-vessel cord. The uterus was exteriorized cleared of all clots and debris, and the incision was closed in a double layer closure using #1 Monocryl. The ovaries and fallopian tubes were noted to be within normal limits. The uterus was returned to the maternal abdomen and gutters were cleared of all clots and debris. The peritoneum was closed with 3-0 Monocryl in a running fashion. Gloves were changed prior to fascial closure. Fascia was closed with 0 PDS in a running fashion. Subcutaneous tissue was copiously irrigated and the skin was closed with 3-0 Monocryl in a subcuticular fashion. Mepilex dressing was applied without complication. Patient was taken to recovery in stable condition. It was discussed with the patient that based on the clinical information obtained during this encounter, combined with her history, at this time I would recommend vaginal or cesareans for future deliveries if further pregnancies are desired. Amniotic Membrane Rupture Type: Artificial Amniotic Fluid Description: Clear Placenta Disposition: [facility] Drain: Zepeda to straight drain Cord Entanglement: None Esitmated Blood Loss (ml): 800 Infant Gender: Female Antibiotic Given: Ancef 3 grams IV x1 Pt instructed on risks of surgery: Bleeding, Anesthesia Risks, Infection, Injury to surrounding structure(s) including bowel and bladder Complications: None - Admit VTE Documentation VTE Present on Admission: No VTE Mechan Device Prophylaxis: SCD's Baby B - Information Amniotic Membrane Rupture Type: Artificial Presentation: Vertex - Operative Information Cord Entanglement: Around neck x 2, tight Cord Vessel Description: 3 Vessels B gender: Female Multi Select Codes - Urinary/Genital Urinary/Genital CPT Codes: 16334 Delivery global pkg - twin delivery
[2020-01-05] MEDS: Oxytocin 30 units/NS 500 ml 30 UNITS/500 ML IV.SOLN 167 UNITS IV (13:45)
[2020-01-05] MEDS: Lactated Ringers 1,000 ML 100 ML IV (14:17)
[2020-01-05] MEDS: HYDROmorphone 1 MG/ML Syringe IV ×2 (15:11→20:19)
[2020-01-05] MEDS: Ketorolac 30 MG/ML Syringe IV (18:25)
[2020-01-05] MEDS: 0.9% Saline Lock 10 ML Syringe IV (21:20)
[2020-01-05] MEDS: Acetaminophen 500 MG Tablet 1000 MG PO (23:44)
[2020-01-06] VITALS (10 sets, daily range): BP systolic 121–144; BP diastolic 65–85; PULSE 86–101; RESP 16–18; TEMP 37.1–37.7; O2SAT 95–98
[2020-01-06] MEDS: 0.9% Saline Lock 10 ML Syringe IV ×3 (00:51→23:10)
[2020-01-06] MEDS: Ketorolac 30 MG/ML Syringe IV ×5 (00:51→23:10)
[2020-01-06] MEDS: Enoxaparin 40 MG/0.4 ML Syringe SC ×3 (01:07→21:52)
[2020-01-06] MEDS: oxyCODONE 5 MG Tablet PO ×3 (04:18→17:00)
[2020-01-06 05:00] LABS: Hematocrit 29.9 % (37-47); Hemoglobin 9.5 g/dL (12.0-15.0); Mean Corp Hgb Conc 31.8 g/dL (32-36); Mean Corpuscular Hgb 26.6 pg (27.0-32.0); Mean Corpuscular Volume 83.8 fL (81-99); Mean Platelet Vol. 10.4 fl (6.2-12.0); Platelet Count 171 K/mm3 (150-450); RBC Distribution Width CV 14.2 % (11.6-14.6); RBC Distribution Width SD 43.3 fl (35.1-43.9); Red Blood Count 3.57 M/mm3 (4.2-5.4); White Blood Count 11.3 K/mm3 (4.4-11.0)
[2020-01-06] MEDS: Acetaminophen 500 MG Tablet 1000 MG PO (10:23)
[2020-01-06] MEDS: Senna/Docusate Sodium 1 Tablet PO (10:24)
--- NOTE | 2020-01-06 11:15 | PCM.PN.OB ---
Patient Problems: Active and Suspected Problems (Last Reviewed 01/02/20 @ 09:24 by Kourtney Fernandes) Abnormal test (Acute) Subjective: doing well no complaints pain controlled no CP SOB N V ambulating well tolerating po lochia moderate, going well - Physical Exam Vitals/I&O's: Vital Signs Temp Pulse Resp BP Pulse Ox 98.8 F 96 16 141/83 H 98 01/06/20 08:00 01/06/20 08:01 01/06/20 08:00 01/06/20 08:01 01/06/20 08:00 Oxygen Delivery Method Room Air Weight: 302 lb 11.115 oz Body Mass Index (BMI) 53.6 Intake and Output for Last 24 Hours 01/04/20 01/05/20 01/06/20 23:59 23:59 23:59 Intake Total 1910.00 / 1910.00 Output Total 600 / 600 Balance 1310.00 / 1310.00 General: Alert, Oriented x3 Laboratory Results 01/05/20 11:35: WBC 9.5, RBC 4.18 L, Hgb 11.0 L, Hct 35.3 L, MCV 84.4, MCH 26.3 L, MCHC 31.2 L, RDW Std Deviation 43.0, RDW Coeff of Joey 14.3, Plt Count 214, MPV 10.6, Immature Gran % (Auto) 1.100 H, Neut % (Auto) 69.0, Lymph % (Auto) 21.0, [place] % (Auto) 8.1, Eos % (Auto) 0.4, Baso % (Auto) 0.4, Absolute Neuts (auto) 6.5, Absolute Lymphs (auto) 1.99, Nucleated RBC % 0 01/05/20 11:35: Blood Type O POSITIVE, Antibody Screen NEGATIVE 01/06/20 04:20: WBC 11.3 H, RBC 3.57 L, Hgb 9.5 L, Hct 29.9 L, MCV 83.8, MCH 26.6 L, MCHC 31.8 L, RDW Std Deviation 43.3, RDW Coeff of Joey 14.2, Plt Count 171, MPV 10.4 Current Medications Acetaminophen (Tylenol) 1,000 mg PO Q8H PRN PRN PRN Reason: Pain Score 1-3/10;Temp>99.6F Last Admin: 01/06/20 10:23 Dose: 1,000 mg Documented by: Bisacodyl (Dulcolax) 10 mg RECTAL UD PRN PRN Reason: If no BM Enoxaparin Sodium (Lovenox) 40 mg SC BID [facility] Last Admin: 01/06/20 10:24 Dose: 40 mg Documented by: Hydrocortisone (Hytone) 1 applic TOPICAL TID PRN PRN; Protocol PRN Reason: Discomfort Hydromorphone HCl (Dilaudid Inj) 0.5 - 1.5 mg IV Q3H PRN PRN PRN Reason: Pain Score 4-10/10 Stop: 01/06/20 13:15 Last Admin: 01/05/20 20:19 Dose: 0.5 mg Documented by: Naloxone HCl 4 mg/ Dextrose 504 mls @ 0 mls/hr IV .Q0M PRN; Protocol PRN Reason: Respiratory depression Ketorolac Tromethamine (Toradol (Bkc)) 30 mg IV Q6H [facility] Stop: 01/07/20 12:01 Last Admin: 01/06/20 06:34 Dose: 30 mg Documented by: Methylergonovine Maleate (Methergine) 0.2 mg IM X1 PRN PRN Reason: Uterine Atony Naloxone HCl (Narcan) 0.02 mg IV Q1M PRN PRN Reason: RR <10 and pt unresponsive Naproxen (Naprosyn) 250 - 500 mg PO Q8H PRN PRN PRN Reason: Pain Score 1-3/10 Ondansetron HCl (Zofran) 4 mg IV Q4H PRN PRN PRN Reason: Nausea Oxycodone HCl (Oxyir) 5 - 10 mg PO Q4H PRN PRN PRN Reason: Pain Score 4-10/10 Last Admin: 01/06/20 04:18 Dose: 5 mg Documented by: Prochlorperazine Edisylate (Compazine Iv) 10 mg IV Q6H PRN PRN PRN Reason: NAUSEA Senna/Docusate Sodium (Senokot-S, Adrienne-Colace) 0 tablet PO DAILY PRN PRN Reason: Constipation Last Admin: 01/06/20 10:24 Dose: 1 tablet Documented by: Simethicone (Mylicon) 80 mg PO PCHS PRN PRN Reason: Indigestion/stomach pain Sodium Chloride () 5 - 15 ml IV UD PRN PRN Reason: SALINE FLUSH Last Admin: 01/06/20 06:35 Dose: 10 ml Documented by: Medical Necessity - Tobacco Use Smoking Status: Never smoker Assessment/Plan All Active Problems (Last Reviewed 01/02/20 @ 09:24 by Kourtney Fernandes) Abnormal test (Acute) Breech presentation of fetus (Acute) Anemia affecting (Acute) Nephrolithiasis (Acute) Twin (Acute) Supervision of high-risk (Acute) Obesity affecting (Acute) (Acute) Dysuria (Resolved) Dysuria during (Resolved) Low back pain (Resolved) Right flank pain (Resolved) Visual changes (Resolved) s/p LTCS PPD # 1 1. routine post care 2. breast feeding- support given 3. rh positive 4. rubella immune
--- NOTE | 2020-01-06 21:00 | NURSING ---
Report received from Bhavani BEARDEN, taking over pt and care at this time.
[2020-01-06] MEDS: Ondansetron 4 MG/2 ML Vial IV (23:11)
[2020-01-07] MEDS: Acetaminophen 500 MG Tablet 1000 MG PO (01:15)
[2020-01-07 03:00] VITALS: BP 122/60; PULSE 88; RESP 18; TEMP 36.4; O2SAT 98
[2020-01-07 03:04] VITALS: BP 122/60; PULSE 87
[2020-01-07] MEDS: 0.9% Saline Lock 10 ML Syringe IV (05:58)
[2020-01-07] MEDS: Ketorolac 30 MG/ML Syringe IV (05:58)
[2020-01-07] MEDS: Senna/Docusate Sodium 1 Tablet PO (05:58)
[2020-01-07 08:22] VITALS: BP 132/75; PULSE 84
[2020-01-07 08:31] VITALS: BP 132/75; PULSE 84; RESP 16; TEMP 37
--- NOTE | 2020-01-07 10:50 | PCM.PN.OB ---
Patient Problems: Active and Suspected Problems (Last Reviewed 01/02/20 @ 09:24 by Kourtney Fernandes) Abnormal test (Acute) Subjective: doing well no complaints pain controlled no CP SOB N V ambulating well tolerating po lochia moderate, going well - Physical Exam Vitals/I&O's: Vital Signs Temp Pulse Resp BP Pulse Ox 98.6 F 84 16 132/75 H 98 01/07/20 08:31 01/07/20 08:31 01/07/20 08:31 01/07/20 08:31 01/07/20 03:00 Oxygen Delivery Method Room Air Weight: 302 lb 11.115 oz Body Mass Index (BMI) 53.6 Intake and Output for Last 24 Hours 01/05/20 01/06/20 01/07/20 23:59 23:59 23:59 Intake Total 1910.00 / 1910.00 Output Total 600 / 600 Balance 1310.00 / 1310.00 General: Alert, Oriented x3 Abdomen: - - incision c/d/i with erythematous irrtation above but separate from incision. Current Medications Acetaminophen (Tylenol) 1,000 mg PO Q8H PRN PRN PRN Reason: Pain Score 1-3/10;Temp>99.6F Last Admin: 01/07/20 01:15 Dose: 1,000 mg Documented by: Bisacodyl (Dulcolax) 10 mg RECTAL UD PRN PRN Reason: If no BM Enoxaparin Sodium (Lovenox) 40 mg SC BID [facility] Last Admin: 01/06/20 21:52 Dose: 40 mg Documented by: Hydrocortisone (Hytone) 1 applic TOPICAL TID PRN PRN; Protocol PRN Reason: Discomfort Naloxone HCl 4 mg/ Dextrose 504 mls @ 0 mls/hr IV .Q0M PRN; Protocol PRN Reason: Respiratory depression Ketorolac Tromethamine (Toradol (Bkc)) 30 mg IV Q6H [facility] Stop: 01/07/20 12:01 Last Admin: 01/07/20 05:58 Dose: 30 mg Documented by: Methylergonovine Maleate (Methergine) 0.2 mg IM X1 PRN PRN Reason: Uterine Atony Naloxone HCl (Narcan) 0.02 mg IV Q1M PRN PRN Reason: RR <10 and pt unresponsive Naproxen (Naprosyn) 250 - 500 mg PO Q8H PRN PRN PRN Reason: Pain Score 1-3/10 Ondansetron HCl (Zofran) 4 mg IV Q4H PRN PRN PRN Reason: Nausea Last Admin: 01/06/20 23:11 Dose: 4 mg Documented by: Oxycodone HCl (Oxyir) 5 - 10 mg PO Q4H PRN PRN PRN Reason: Pain Score 4-10/10 Last Admin: 01/06/20 17:00 Dose: 5 mg Documented by: Prochlorperazine Edisylate (Compazine Iv) 10 mg IV Q6H PRN PRN PRN Reason: NAUSEA Senna/Docusate Sodium (Senokot-S, Adrienne-Colace) 0 tablet PO DAILY PRN PRN Reason: Constipation Last Admin: 01/07/20 05:58 Dose: 2 tablet Documented by: Simethicone (Mylicon) 80 mg PO PCHS PRN PRN Reason: Indigestion/stomach pain Last Admin: 01/06/20 17:00 Dose: 80 mg Documented by: Sodium Chloride () 5 - 15 ml IV UD PRN PRN Reason: SALINE FLUSH Last Admin: 01/07/20 05:58 Dose: 10 ml Documented by: Medical Necessity - Tobacco Use Smoking Status: Never smoker Assessment/Plan All Active Problems (Last Reviewed 01/02/20 @ 09:24 by Kourtney Fernandes) Abnormal test (Acute) Breech presentation of fetus (Acute) Anemia affecting (Acute) Nephrolithiasis (Acute) Twin (Acute) Supervision of high-risk (Acute) Obesity affecting (Acute) (Acute) Dysuria (Resolved) Dysuria during (Resolved) Low back pain (Resolved) Right flank pain (Resolved) Visual changes (Resolved) s/p LTCS PPD # 2 1. routine post care 2. breast feeding- support given 3. rh positive 4. rubella immune steroid cream to contact irritation on incision
--- NOTE | 2020-01-07 10:51 | PCM.DCCSEC ---
Discharge Diet: No Restrictions Discharge Activity: May Not Drive - for 2 weeks, May not drive while taking narcotic pain medications., May Shower, May Take a Tub Bath - in 7 days May resume sexual activity in: 4-6 weeks Lifting Restrictions: 20 pounds Additional Activity Instructions:: Nothing in the vagina for 4-6 weeks. You may return to work/school in 6 weeks. Call your doctor if your incision/area has: Continuous Slow Oozing, Sudden Increased Bleeding, Increased Pain/ Swelling, Increased Redness, Foul Smelling Discharge Call your doctor if you observe: Fever of 101 or Higher, Using more than one pad per hour - for 2 hours Suture Line Care: Avoid Pulling/Pushing, Avoid Pinching/Bending Cleanse incision/area with: Keep Dressing Clean & Dry Additional Instructions: If you experience any of the following, contact your healthcare provider. Bleeding that soaks a pad every hour for 2 hours Fever 100.4 or higher Unrelieved incision or abdominal pain Swelling, redness, discharge or bleeding from your incision or episiotomy site Your incision begins to separate Problems urinating (including inability to urinate or burning while urinating). Visual changes Severe headache Flu-like symptoms Pain or redness in one of both of your breasts Pain, warmth, tenderness or swelling in your legs, especially the calf area Frequent nausea and vomiting Symptoms of depression or anxiety If you experience any of the following, call 911 or go to the nearest Emergency Room. Chest pain Problems breathing Seizure activity Partial or complete paralysis of a body part, slurred speech, weakness or drooping of the face, or a sudden inability to walk or hold your balance Allergies/Adverse Reactions: Allergies No Known Allergies Allergy (Verified 01/05/20 09:23) Medications to take at Discharge Ferrous Sulfate [Iron] 325 mg PO DAILY 10/12/19 Folic Acid 1 mg PO DAILY 10/12/19 Vits [Prenatabs FA ] 1 tab PO DAILY 10/12/19 Famotidine 20 mg PO DAILY 12/01/19 blood pressure test kit-large See Rx Instructions .ROUTE .MEDSUPPLY #1 ea 12/19/19 Naproxen [Naprosyn] 250 - 500 mg PO Q8H PRN PRN #30 tab 01/07/20 Oxycodone HCl/Acetaminophen [Percocet 5-325] 1 - 2 tablet PO Q6H PRN PRN 7 Days #15 tablet 01/07/20 The following prescriptions were given: Naproxen [Naprosyn] 250 - 500 mg PO Q8H PRN PRN #30 tab PRN Reason: MILD PAIN Transmission Status: Pending to [facility]/pharmacy #[id number] Oxycodone HCl/Acetaminophen [Percocet 5-325] 1 - 2 tablet PO Q6H PRN PRN 7 Days #15 tablet PRN Reason: Pain Transmission Status: Sent to [facility]/pharmacy #[id number] Follow-Up: Call to make an appointment with your doctor for an incision check in 1-2 weeks. You will also need a 6 week post- follow up appointment. Test results from this visit will be discussed in further detail at your follow-up appointment, if applicable. Please Follow Up With: Nicole Reagan MD - Call to make an appointment for an incision check in 1-2 [phone] When: You will need a post- check in 6 weeks. Primary Care Physician: Tabitha Overton MD [Primary Care Provider] -
[2020-01-07] MEDS: Hydrocortisone 2.5% Crm 1 APPLIC TOPICAL (12:27)
[2020-01-07] MEDS: Enoxaparin 40 MG/0.4 ML Syringe SC (13:46)
[2020-01-07] MEDS: Naproxen 250 MG Tablet PO (15:00)
[2020-01-07 16:00] VITALS: BP 132/84; PULSE 85; RESP 16; TEMP 37.2
[2020-01-07 16:50] VITALS: BP 132/84; PULSE 85
--- NOTE | 2020-01-15 09:16 | NURSING ---
Mother while here at baby lab draw, states she has a headache unrelieved by motrin or oxyir. She denies blurred vision and no upper abdominal pain. BP checked and was 177/92 and 177/103. BP called to Tanya Singh. Tanya talked with mother and discussed starting labetolol . She had order called to pharmacy and Farhna Singh is seeing patient at 0800 tomorrow .
== END 2020-01-07 18:10 | disposition home or self-care (01) | DRG 788 ==
LOC: WPOUT 11:27 → WP 11:27
PROVIDERS: Admitting Provider Obstetrics & Gynecology; PCP Family Medicine; Referring Provider Obstetrics & Gynecology; Visit Provider Obstetrics & Gynecology
DX: O32.1XX2 Maternal care for breech presentation, fetus 2 (principal); O30.043 Twin pregnancy, dichorionic/diamniotic, third trimester; Z3A.36 36 weeks gestation of pregnancy; Z37.2 Twins, both liveborn; O76 Abnormality in fetal heart rate and rhythm complicating labor and delivery; D64.9 Anemia, unspecified; O99.02 Anemia complicating childbirth; E66.9 Obesity, unspecified; O99.214 Obesity complicating childbirth; O69.1XX2 Labor and delivery complicated by cord around neck, with compression, fetus 2
CPT/HCPCS: 59025; 59050; 76818; 85025; 85027; 86850; 86900; 86901; 99218; J7120; A4216; G0378; J2405

== ENCOUNTER 2020-01-14 21:17 | Inpatient (IN) | payer OTHER, SELFPAY ==
[2020-01-05 09:22] VITALS: BMI 53.6
[2020-01-14] VITALS (26 sets, daily range): BP systolic 143–196; BP diastolic 76–102; PULSE 63–96; RESP 18; TEMP 36.9–37.1; O2SAT 92–99; BMI 50.5
[2020-01-14] MEDS: Acetaminophen 500 MG Tablet 1000 MG PO (20:33)
--- NOTE | 2020-01-14 20:59 | NURSING ---
This RN, another RN, Tiffanie - engine house helper all attempted to start IV line for medications. Dr. De Dios contacted by this RN to attempt IV placement
[2020-01-14] MEDS: Lactated Ringers 1,000 ML 15 ML IV (21:00)
[2020-01-14] MEDS: Magnesium Sulfate 4gm/100mL 4 GM/100 ML IV.SOLN. IV (21:11)
[2020-01-14] MEDS: Magnesium Sulfate 4gm/100mL 2 GM/50 ML IV.SOLN. IV (21:36)
[2020-01-14 21:43] LABS: Hemoglobin 9.8 g/dL (12.0-15.0); Mean Corp Hgb Conc 30.6 g/dL (32-36); Mean Corpuscular Hgb 26.1 pg (27.0-32.0); Mean Corpuscular Volume 85.1 fL (81-99); Mean Platelet Vol. 10.6 fl (6.2-12.0); Platelet Count 290 K/mm3 (150-450); RBC Distribution Width CV 14.3 % (11.6-14.6); Red Blood Count 3.76 M/mm3 (4.2-5.4); White Blood Count 10.3 K/mm3 (4.4-11.0)
[2020-01-14] MEDS: Magnesium Sulfate 20 GM/500 ML BAG IV (21:46)
[2020-01-14 21:51] LABS: International Normalized Ratio 1.2; Prothrombin Time (Protime)PT. 14.4 SECONDS (11.7-14.9)
[2020-01-14 21:52] LABS: Partial Thromboplast Time 31.7 Seconds (24.1-36.2)
[2020-01-14 22:00] LABS: AST(SGOT) 17 U/L (15-37); Alanine Aminotransfer ALT/SGPT 40 U/L (13-56); Creatinine, Serum 0.98 mg/dL (0.55-1.02); EST Glomerular Filtration Rate 73 mL/min (>60); Est Glom Filt Rate - Afr Amer 89 mL/min (>60); Estimated Creatinine Clearance 72.59 ml/min; Uric Acid 6.8 mg/dL (2.6-6.0)
[2020-01-14 22:00] LABS: Protein, Urine (Random) 12.4 mg/dL (<11.9); Protein:Creat Ratio 466 mg/g CRE (0-200)
[2020-01-14] MEDS: Labetalol 200 MG Tablet PO (22:41)
--- NOTE | 2020-01-14 22:52 | HP.PCM_ITS ---
- Problem List (1) Pre-eclampsia, Status: Acute Comment: 01/13 admitted History Date of Admission: 10/20/19 History of this : This is a 24 year-old, G2, P2 status post primary for twins postop day #9. Patient began not feeling well throughout the day today and had increased swelling, headache for the last 3 days and was seen for a appointment. At the appointment she was noted to have elevated blood pressures and was reevaluated and they were severe and persistent. She was given 3 doses of IV labetalol which finally dropped her blood pressures to the 150s over 100s. Her pressures began to go back up again and therefore she was given a dose of IV hydralazine. Allergies No Known Allergies Allergy (Verified 01/05/20 09:23) Home Medications: Home Medications Ferrous Sulfate [Iron] 325 mg PO DAILY 10/12/19 Folic Acid 1 mg PO DAILY 10/12/19 Vits [Prenatabs FA ] 1 tab PO DAILY 10/12/19 blood pressure test kit-large See Rx Instructions .ROUTE .MEDSUPPLY #1 ea 12/19/19 Naproxen [Naprosyn] 250 - 500 mg PO Q8H PRN PRN #30 tab 01/07/20 Oxycodone [Oxyir] 5 mg PO Q4H PRN PRN 01/14/20 Smoking Status: Never smoker Alcohol: None Number of Fetus(es): 1 History Past Pregnancies: Past Pregnancies term pod9 from cs twins vertex breech. Review of Systems Constitutional: Reports: Malaise. Denies: Fever Eyes: Reports: Vision Change. Denies: Blurred vision HEENT: Reports: Head Aches, Visual Changes Cardiovascular: Denies: Chest Pain, Palpitations Respiratory: Denies: Cough, Shortness of Breath, Wheezing Gastrointestinal: Reports: Abdominal Pain, Nausea. Denies: Diarrhea, Vomiting Genitourinary: Denies: Dysuria, Hematuria Musculoskeletal: Denies: Joint Pain, Muscle pain Skin: Reports: Lesions - ecchymoses right abdomen. Denies: Rash Neurological: Denies: Blurred vision, Focal weakness, Headaches Psychiatric: Denies: Anxiety, Depression Endocrine: Denies: Heat/ Cold Intolerance Hematologic/ Lymphatic: Denies: Easy Bruising, Easy Bleeding Physical Exam Vitals: Vital Signs Temp Pulse Resp BP Pulse Ox 98.8 F 88 18 165/81 H 98 01/14/20 21:11 01/14/20 22:49 01/14/20 21:46 01/14/20 22:49 01/14/20 19:52 General: Alert, Cooperative, No apparent distress HEENT: Atraumatic, Normocephalic. Negative for: Thyromegaly, Lymphadenopathy Cardiovascular: Regular rate Lungs: Normal air movement Abdomen: Soft, Non Tender, - - right upper ecchymoses from previous lovenox Neurological: Deep Tendon Reflexes 2+/4 and Symmetrical, Neuro grossly intact. Negative for: Clonus [employer]: Normal external genitalia. Negative for: Vulvar lesions Assessment/Plan All Active Problems (Last Reviewed 01/02/20 @ 09:24 by Kourtney Fernandes) Abnormal test (Acute) Pre-eclampsia, (Acute) Breech presentation of fetus (Acute) Anemia affecting (Acute) Nephrolithiasis (Acute) Twin (Acute) Supervision of high-risk (Acute) Obesity affecting (Acute) (Acute) Dysuria (Resolved) Dysuria during (Resolved) Low back pain (Resolved) Right flank pain (Resolved) Visual changes (Resolved) This is a 24 year-old, s/p CS POD 9 with preeclampsia admit, magnesium sulfate, HTN protocol. give 300 labetalol BID and 5 mg hydralazine TID, may need additional depending on HTN protocol used. incision intact- routine wound care lovenox routine prophylaxis breast feeding- pumping Multi Select Codes - Visit Charges Observation E&M Codin Initial observation care L3
[2020-01-14 23:00] LABS: Microalbumin,Random Urine 37.4 mg/L (NO RANGE EST.)
[2020-01-14] MEDS: hydrALAZINE 20 MG/ML Vial 5 MG IV (23:13)
[2020-01-14] MEDS: hydrALAZINE 10 MG Tablet PO (23:56)
[2020-01-15] VITALS (57 sets, daily range): BP systolic 121–171; BP diastolic 63–91; PULSE 86–117; RESP 16–20; TEMP 35.8–36.8; O2SAT 94–100
--- NOTE | 2020-01-15 01:10 | NURSING ---
Late entry at 2117: Call placed to Dr. Reagan to notify of delayed labetalol administration due to difficulty with IV placement. Dr. Reagan okay with this, updated that first dose of labetalol given, mgso4 started and labs being sent 2213: Dr. Reagan notified of lab results. Will come to hospital to see patient. 2224: Dr. Reagan here to see pt. additional orders received
[2020-01-15] MEDS: hydrALAZINE 20 MG/ML Vial 5 MG IV ×3 (03:26→12:31)
--- NOTE | 2020-01-15 03:32 | NURSING ---
At 0310, Dr. Reagan notified of increasing blood pressures - 171/89 then 168/80 15 minutes apart. Orders received.
[2020-01-15] MEDS: hydrALAZINE 20 MG/ML Vial 10 MG IV (03:53)
[2020-01-15] MEDS: Enoxaparin 40 MG/0.4 ML Syringe SC ×2 (03:58→15:34)
[2020-01-15] MEDS: hydrALAZINE 10 MG Tablet PO ×3 (05:52→21:35)
[2020-01-15] MEDS: Acetaminophen 500 MG Tablet 1000 MG PO (05:58)
[2020-01-15 07:10] LABS: Hematocrit 31.8 % (37-47); Hemoglobin 10.1 g/dL (12.0-15.0); Mean Corp Hgb Conc 31.8 g/dL (32-36); Mean Corpuscular Hgb 26.6 pg (27.0-32.0); Mean Corpuscular Volume 83.7 fL (81-99); Mean Platelet Vol. 9.7 fl (6.2-12.0); Platelet Count 263 K/mm3 (150-450); RBC Distribution Width CV 14.2 % (11.6-14.6); RBC Distribution Width SD 43.4 fl (35.1-43.9); White Blood Count 9.5 K/mm3 (4.4-11.0)
[2020-01-15 07:49] LABS: ALB/GLOB Ratio 0.8 RATIO (0.9-2.4); AST(SGOT) 14 U/L (15-37); Alanine Aminotransfer ALT/SGPT 36 U/L (13-56); Albumin, Serum 2.7 g/dL (3.2-5.0); Alkaline Phosphatase 123 U/L (45-117); Anion Gap 9 (5-15); BUN 14 mg/dL (7-18); BUN/Creat Ratio 19.1 RATIO (10-20); Calcium,Total 7.8 mg/dL (8.5-10.1); Chloride 109 mmol/L (98-107); Creatinine, Serum 0.73 mg/dL (0.55-1.02); EST Glomerular Filtration Rate 102 mL/min (>60); Est Glom Filt Rate - Afr Amer 124 mL/min (>60); Estimated Creatinine Clearance 97.45 ml/min; Globulin 3.5 g/dL (2.2-4.2); Glucose 97 mg/dL (74-106); Potassium 3.5 mmol/L (3.5-5.1); Protein, Total 6.2 g/dL (6.4-8.2); Sodium Level 142 mmol/L (136-145)
[2020-01-15] MEDS: oxyCODONE 5 MG Tablet PO ×3 (08:11→17:47)
[2020-01-15] MEDS: Magnesium Sulfate 20 GM/500 ML BAG IV ×2 (08:16→17:41)
--- NOTE | 2020-01-15 08:36 | NURSING ---
Bruising noted on right side of upper abdomen. Pt notes it's from giving herself Lovenox shots at home. Informed pt to rotate sites on abdomen, pt verbalized understanding. No other bruising noted.
[2020-01-15] MEDS: NIFEdipine 60 MG Tablet PO (09:37)
--- NOTE | 2020-01-15 11:18 | PN.OBGYN_ITS ---
Patient Problems: Active and Suspected Problems (Last Reviewed 01/02/20 @ 09:24 by Kourtney Fernandes) Pre-eclampsia, (Acute) 01/13 admitted Subjective: Patient has intermittent periods of feeling better or worse. She had worsening symptoms in the middle of day and therefore a CT scan was done which was within normal limits and later on the patient continued to improve with symptoms with a reduction in headache - Physical Exam Vitals/I&O's: Vital Signs Temp Pulse Resp BP Pulse Ox 97.0 F L 99 18 144/88 H 98 01/15/20 10:30 01/15/20 10:30 01/15/20 10:30 01/15/20 10:30 01/15/20 10:30 Oxygen Delivery Method Room Air Weight: 285 lb 7.978 oz Body Mass Index (BMI) 50.5 Intake and Output for Last 24 Hours 01/13/20 01/14/20 01/15/20 23:59 23:59 23:59 Intake Total 258.33 / 258.33 1339.59 / 1339.59 Output Total 500 / 500 3750 / 3750 Balance -241.67 / -241.67 -2410.41 / -2410.41 General: Alert, Oriented x3 Lungs: Normal air movement Cardiovascular: Regular rate Abdomen: Soft, Non Tender Neurological: Deep Tendon Reflexes 2+/4 and Symmetrical, Neuro grossly intact, - - no clonus Psych/Mental Status: Appropriate Laboratory Results 01/14/20 19:40: U Random Total Protein 12.4 H, Urine Creatinine 26.60, Protein/Creatinin Ratio 466 H 01/14/20 19:40: Ur Random Microalbumin 37.4, Urine Creatinine 25.80, Microalb/Creat Ratio 145.0 H 01/14/20 21:00: WBC 10.3, RBC 3.76 L, Hgb 9.8 L, Hct 32.0 L, MCV 85.1, MCH 26.1 L, MCHC 30.6 L, RDW Std Deviation 44.0 H, RDW Coeff of Joey 14.3, Plt Count 290, MPV 10.6 01/14/20 21:00: PT 14.4, INR 1.2, APTT 31.7 01/14/20 21:00: Creatinine 0.98, Estim Creat Clear Calc 72.59, Est GFR (MDRD) Af Amer 89, Est GFR (MDRD) Non-Af 73, Uric Acid 6.8 H, AST 17, ALT 40 01/15/20 07:03: WBC 9.5, RBC 3.80 L, Hgb 10.1 L, Hct 31.8 L, MCV 83.7, MCH 26.6 L, MCHC 31.8 L, RDW Std Deviation 43.4, RDW Coeff of Joey 14.2, Plt Count 263, MPV 9.7 01/15/20 07:03: Sodium 142, Potassium 3.5, Chloride 109 H, Carbon Dioxide 24.0, Anion Gap 9, BUN 14, Creatinine 0.73, Estim Creat Clear Calc 97.45, Est GFR (MDRD) Af Amer 124, Est GFR (MDRD) Non-Af 102, BUN/Creatinine Ratio 19.1, Glucose 97, Calcium 7.8 L, Total Bilirubin 0.30, AST 14 L, ALT 36, Alkaline Phosphatase 123 H, Total Protein 6.2 L, Albumin 2.7 L, Globulin 3.5, Albumin/Globulin Ratio 0.8 L Current Medications Acetaminophen (Tylenol) 1,000 mg PO Q8H PRN PRN PRN Reason: Pain Score 1-3/10 Last Admin: 01/15/20 05:58 Dose: 1,000 mg Documented by: Enoxaparin Sodium (Lovenox) 40 mg SC Q12H [facility] Last Admin: 01/15/20 03:58 Dose: 40 mg Documented by: Hydralazine HCl (Apresoline) 10 mg PO TID [facility] Last Admin: 01/15/20 05:52 Dose: 10 mg Documented by: Hydralazine HCl (Apresoline Iv) 5 mg IV Q20M PRN PRN Reason: Elevated BP Hydralazine HCl (Apresoline Iv) 10 mg IV X1 PRN PRN Reason: Elevated BP Calcium Gluconate 1 gm/ N/A 10 mls @ 2 mls/min IV X1 PRN PRN Reason: Magnesium Toxicity Magnesium Sulfate (20gm/500ml) 20 gm in 500 mls @ 50 mls/hr IV .Q10H [facility]; Protocol Last Infusion: 01/15/20 10:30 Dose: 2 gm/hr, 50 mls/hr Documented by: Lactated Ringer's () 1,000 mls @ 15 mls/hr IV .Q48H [facility] Last Infusion: 01/15/20 07:25 Dose: 15 mls/hr Documented by: Labetalol HCl (Trandate) 20 mg IV Q10M PRN PRN PRN Reason: Elevated BP Labetalol HCl (Trandate) 20 mg IV X1 PRN PRN Reason: Elevated BP Labetalol HCl (Trandate) 40 mg IV X1 PRN PRN Reason: Elevated BP Midazolam HCl (Versed) 2 mg IV X1 PRN PRN Reason: Seizure Activity Nifedipine (Procardia Xl) 60 mg PO DAILY [facility] Last Admin: 01/15/20 09:37 Dose: 60 mg Documented by: Ondansetron HCl (Zofran) 4 mg IV Q4H PRN PRN PRN Reason: NAUSEA Oxycodone HCl (Oxyir) 5 mg PO Q4H PRN PRN PRN Reason: Pain Score 4-5/10 Last Admin: 01/15/20 08:11 Dose: 5 mg Documented by: Prochlorperazine Edisylate (Compazine Iv) 10 mg IV Q6H PRN PRN PRN Reason: NAUSEA Medical Necessity - Tobacco Use Smoking Status: Never smoker Assessment/Plan All Active Problems (Last Reviewed 01/02/20 @ 09:24 by Kourtney eFrnandes) Abnormal test (Acute) Pre-eclampsia, (Acute) Breech presentation of fetus (Acute) Anemia affecting (Acute) Nephrolithiasis (Acute) Twin (Acute) Supervision of high-risk (Acute) Obesity affecting (Acute) (Acute) Dysuria (Resolved) Dysuria during (Resolved) Low back pain (Resolved) Right flank pain (Resolved) Visual changes (Resolved) This is a 24 year-old, s/p CS POD 9 with preeclampsia magnesium sulfate, HTN protocol. stable on procardia 60mg XL and hydralazine TID incision intact- routine wound care lovenox routine prophylaxis breast feeding- pumping Multi Select Codes - Visit Charges Visit Charges: 53124 Subs Hosp L3
--- NOTE | 2020-01-15 11:43 | CT_ITS ---
STUDY: CT BRAIN WITHOUT CONTRAST REASON FOR EXAM: Female, 24 years old. Post RADIATION DOSAGE (If Supplied By Facility): CTDIvol = ( 45 ) mGy, DLP = ( 762 ) mGycm TECHNIQUE: Transaxial CT imaging of the brain was performed without administration of intravenous contrast material. Individualized dose optimization techniques were used for this CT. COMPARISON: None. FINDINGS: There is no acute bleed or infarct. There are normal white matter tracts. The ventricles are normal in configuration. There is no hydrocephalus. The visualized paranasal sinuses are clear. The mastoid air cells are well aerated. There is no skull fracture. CT/Brain/Head without Contrast IMPRESSION: No acute intracranial abnormality. Electronically Signed: Nic Correa, at 12:25 EDT Tel , Service support ,
--- NOTE | 2020-01-15 12:39 | NURSING ---
At 1120, this RN re-entered room. Pt states she was excited to drink [address] Reagan was going to allow it this hour. 500 cc water given to pt and menu instructed and given to pt to order lunch, regular diet per Dr. Reagan. While viewing menu, pt became lethargic, responding to RN voice commands. Pt states, I just can't keep my eyes open, like I'm so tired and I don't feel right. My headache is way worse now, like a 7/10 and I feel shakey. Assessment unchanged. BP 155/81, pulse ox 98-100% on room air. Pt repositioned to left side and this RN remained with pt, offering emotional support as pt became tearful. Dr. Reagan called at 1137 and requested to see pt now with pt's symptoms and behavior. Charge nurse, Laverne BEARDEN called at 1138 with this RN's concerns. At 1140, both Dr. Reagan and Laverne RN in room. Dr. Reagan assessing pt and informed of the above. Order received to give oxyir 5 mg PO x1 now, aware last dose was 0811; give hydralazine 5 mg IVP x1 and repeat dose if BP's don't decrease into 140's with 1st dose; CT scan of head without contrast and magnesium level now. Hydralazine 5 mg IVP x 1 given at 1150 with oxyir 5 mg PO x1. Pt up to BR with RN assistance due to urge to void and pt wanting to try. RN ok with this since pt responsive and alert, pt remains tearful at this time. Pt voided 500 cc clear urine noted. Pt magnesium level drawn in Left AC by Laverne BEARDEN. Pt able to get into wheelchair and escorted to CT. This RN remained with pt. At 1210, BP 152/91 while pt sitting in wheelchair on pt's left arm. Pt tearful and states, I didn't want to tell AJ (pt's ) but I just felt so good to so bad so quickly and I was afraid that I wasn't going to wake up. This RN offering continual emotional support. CT scan obtained. Pt escorted back to via wheelchair and returned to bed, semi-fowlers with this RN's assistance. BP 158/87 while pt resting, rates CALLES 5/10 now. Hydralazine 5 mg IVP x1 given per order. Continuing to monitor continuously. This RN remains at bedside.
[2020-01-15 12:44] LABS: Magnesium 6.6 mg/dL (1.6-2.6)
[2020-01-15] MEDS: Acetaminophen/Butalbital/Caffe 1 Tablet 2 TABLET PO (13:58)
--- NOTE | 2020-01-15 17:43 | NURSING ---
At 0816, magnesium sulfate bag and dose verified by Laverne Orellana RN.
[2020-01-15] MEDS: Ondansetron 4 MG/2 ML Vial IV (19:30)
[2020-01-16 01:04] VITALS: BP 126/64; PULSE 104; RESP 18; TEMP 36.3
[2020-01-16] MEDS: Acetaminophen 500 MG Tablet 1000 MG PO (01:11)
[2020-01-16] MEDS: Enoxaparin 40 MG/0.4 ML Syringe SC (03:52)
[2020-01-16 03:56] VITALS: BP 120/59; PULSE 100; RESP 21; TEMP 37.2
[2020-01-16 03:57] VITALS: BP 120/59; PULSE 100
--- NOTE | 2020-01-16 04:56 | PCM.PN.OB ---
Patient Problems: Active and Suspected Problems (Last Reviewed 01/02/20 @ 09:24 by Kourtney Fernandes) Pre-eclampsia, (Acute) 01/13 admitted Subjective: feeling much better, bps well controlled, diuresing well. no ACLLES N V RUQ pain, decreased edema - Physical Exam Vitals/I&O's: Vital Signs Temp Pulse Resp BP Pulse Ox 99.0 F 100 21 H 120/59 L 99 01/16/20 03:56 01/16/20 03:57 01/16/20 03:56 01/16/20 03:57 01/15/20 21:14 Oxygen Delivery Method Room Air Weight: 285 lb 7.978 oz Body Mass Index (BMI) 50.5 Intake and Output for Last 24 Hours 01/14/20 01/15/20 01/16/20 23:59 23:59 23:59 Intake Total 258.33 / 258.33 3696.52 / 3696.52 550 / 550 Output Total 500 / 500 7500 / 7500 1000 / 1000 Balance -241.67 / -241.67 -3803.48 / -3803.48 -450 / -450 General: Alert, Oriented x3 Cardiovascular: Regular rate Abdomen: Soft, Non Tender Extremities: Edema - decreased Neurological: Deep Tendon Reflexes 2+/4 and Symmetrical, - - no clonus Laboratory Results 01/15/20 07:03: WBC 9.5, RBC 3.80 L, Hgb 10.1 L, Hct 31.8 L, MCV 83.7, MCH 26.6 L, MCHC 31.8 L, RDW Std Deviation 43.4, RDW Coeff of Joey 14.2, Plt Count 263, MPV 9.7 01/15/20 07:03: Sodium 142, Potassium 3.5, Chloride 109 H, Carbon Dioxide 24.0, Anion Gap 9, BUN 14, Creatinine 0.73, Estim Creat Clear Calc 97.45, Est GFR (MDRD) Af Amer 124, Est GFR (MDRD) Non-Af 102, BUN/Creatinine Ratio 19.1, Glucose 97, Calcium 7.8 L, Total Bilirubin 0.30, AST 14 L, ALT 36, Alkaline Phosphatase 123 H, Total Protein 6.2 L, Albumin 2.7 L, Globulin 3.5, Albumin/Globulin Ratio 0.8 L 01/15/20 12:00: Magnesium 6.6 H* Current Medications Acetaminophen (Tylenol) 1,000 mg PO Q8H PRN PRN PRN Reason: Pain Score 1-3/10 Last Admin: 01/16/20 01:11 Dose: 1,000 mg Documented by: Enoxaparin Sodium (Lovenox) 40 mg SC Q12H [facility] Last Admin: 01/16/20 03:52 Dose: 40 mg Documented by: Hydralazine HCl (Apresoline) 10 mg PO TID [facility] Last Admin: 01/15/20 21:35 Dose: 10 mg Documented by: Hydralazine HCl (Apresoline Iv) 5 mg IV Q20M PRN PRN Reason: Elevated BP Hydralazine HCl (Apresoline Iv) 10 mg IV X1 PRN PRN Reason: Elevated BP Calcium Gluconate 1 gm/ N/A 10 mls @ 2 mls/min IV X1 PRN PRN Reason: Magnesium Toxicity Labetalol HCl (Trandate) 20 mg IV Q10M PRN PRN PRN Reason: Elevated BP Labetalol HCl (Trandate) 20 mg IV X1 PRN PRN Reason: Elevated BP Labetalol HCl (Trandate) 40 mg IV X1 PRN PRN Reason: Elevated BP Midazolam HCl (Versed) 2 mg IV X1 PRN PRN Reason: Seizure Activity Nifedipine (Procardia Xl) 60 mg PO DAILY [facility] Last Admin: 01/15/20 09:37 Dose: 60 mg Documented by: Ondansetron HCl (Zofran) 4 mg IV Q4H PRN PRN PRN Reason: NAUSEA Last Admin: 01/15/20 19:30 Dose: 4 mg Documented by: Oxycodone HCl (Oxyir) 5 mg PO Q4H PRN PRN PRN Reason: Pain Score 4-5/10 Last Admin: 01/15/20 17:47 Dose: 5 mg Documented by: Prochlorperazine Edisylate (Compazine Iv) 10 mg IV Q6H PRN PRN PRN Reason: NAUSEA Medical Necessity - Tobacco Use Smoking Status: Never smoker Assessment/Plan All Active Problems (Last Reviewed 01/02/20 @ 09:24 by Kourtney Fernandes) Abnormal test (Acute) Pre-eclampsia, (Acute) Breech presentation of fetus (Acute) Anemia affecting (Acute) Nephrolithiasis (Acute) Twin (Acute) Supervision of high-risk (Acute) Obesity affecting (Acute) (Acute) Dysuria (Resolved) Dysuria during (Resolved) Low back pain (Resolved) Right flank pain (Resolved) Visual changes (Resolved) This is a 24 year-old, s/p CS POD 11 with preeclampsia s/p 24 hours magnesium sulfate, HTN protocol. stable on procardia 60mg XL and hydralazine TID incision intact- routine wound care lovenox routine prophylaxis breast feeding- pumping dc home today Multi Select Codes - Visit Charges Visit Charges: 38867 Disch Hosp
--- NOTE | 2020-01-16 04:57 | DCINST_ITS ---
Discharge Diet: No Restrictions Discharge Activity: May Not Drive - for 2 weeks, May not drive while taking narcotic pain medications., May Shower, May Take a Tub Bath - in 7 days May resume sexual activity in: 4-6 weeks Lifting Restrictions: 20 pounds Additional Activity Instructions:: Nothing in the vagina for 4-6 weeks. You may return to work/school in 6 weeks. Call your doctor if your incision/area has: Continuous Slow Oozing, Sudden Increased Bleeding, Increased Pain/ Swelling, Increased Redness, Foul Smelling Discharge Call your doctor if you observe: Fever of 101 or Higher, Using more than one pad per hour - for 2 hours Suture Line Care: Avoid Pulling/Pushing, Avoid Pinching/Bending Cleanse incision/area with: Keep Dressing Clean & Dry Additional Instructions: If you experience any of the following, contact your healthcare provider. * Bleeding that soaks a pad every hour for 2 hours * Fever 100.4 or higher * Unrelieved incision or abdominal pain * Swelling, redness, discharge or bleeding from your incision or episiotomy site * Your incision begins to separate * Problems urinating (including inability to urinate or burning while urinating). * Visual changes * Severe headache * Flu-like symptoms * Pain or redness in one of both of your breasts * Pain, warmth, tenderness or swelling in your legs, especially the calf area * Frequent nausea and vomiting * Symptoms of depression or anxiety If you experience any of the following, call 911 or go to the nearest Emergency Room. * Chest pain * Problems breathing * Seizure activity * Partial or complete paralysis of a body part, slurred speech, weakness or drooping of the face, or a sudden inability to walk or hold your balance Allergies/Adverse Reactions: Allergies No Known Allergies Allergy (Verified 01/05/20 09:23) Medications to take at Discharge Ferrous Sulfate [Iron] 325 mg PO DAILY 10/12/19 Folic Acid 1 mg PO DAILY 10/12/19 Vits [Prenatabs FA ] 1 tab PO DAILY 10/12/19 blood pressure test kit-large See Rx Instructions .ROUTE .MEDSUPPLY #1 ea 12/19/19 Naproxen [Naprosyn] 250 - 500 mg PO Q8H PRN PRN #30 tab 01/07/20 Oxycodone [Oxyir] 5 mg PO Q4H PRN PRN 01/14/20 Follow-Up: Call to make an appointment with your doctor for an incision check in 1-2 weeks. You will also need a 6 week post- follow up appointment. Test results from this visit will be discussed in further detail at your follow- up appointment, if applicable. Please Follow Up With: Nicole Reagan MD - Call to make an appointment for an incision check in 1-2 [phone] When: You will need a post- check in 6 weeks. Primary Care Physician: Tabitha Overton MD [Primary Care Provider] -
[2020-01-16 06:11] VITALS: BP 116/57; PULSE 100
[2020-01-16 06:20] VITALS: BP 116/57; PULSE 100
== END 2020-01-16 06:55 | disposition home or self-care (01) | DRG 776 ==
LOC: WPOUT 01-15 11:28 → WP 01-15 11:28
PROVIDERS: Admitting Provider Obstetrics & Gynecology; PCP Family Medicine; Visit Provider Obstetrics & Gynecology
DX: O14.95 Unspecified pre-eclampsia, complicating the puerperium (principal); O99.215 Obesity complicating the puerperium; E66.9 Obesity, unspecified
CPT/HCPCS: 36415; 70450; 80053; 82043; 82565; 82570; 83735; 84156; 84450; 84460; 84550; 85027; 85610; 85730; 94760; 96372; J7120; J2405

== ENCOUNTER → 2020-02-18 | Outpatient (CLI) | payer OTHER, SELFPAY ==
[2020-02-18 11:12] VITALS: BMI 50.5
[2020-02-23 20:06] LABS: HPV Reflexed? YES, CHARGE PATIENT
== END | disposition home or self-care (01) ==
LOC: LABSPEC 15:42
PROVIDERS: PCP Family Medicine; Referring Provider Obstetrics & Gynecology; Visit Provider Obstetrics & Gynecology
DX: Z12.4 Encounter for screening for malignant neoplasm of cervix (principal)
CPT/HCPCS: 87624; 88175; G0145

== ENCOUNTER → 2020-08-17 11:39 | Outpatient (CLI) | payer OTHER, SELFPAY ==
[2020-04-01 11:22] VITALS: BMI 50.5
[2020-08-17 16:33] LABS: Prolactin 7.4 ng/mL; Thyroid Stim Hormone (TSH) 2.48 uIU/mL (0.358-3.74)
== END ==
PROVIDERS: PCP Family Medicine; Visit Provider Family Medicine
DX: N64.4 Mastodynia (principal)
CPT/HCPCS: 36415; 84146; 84443

== ENCOUNTER → 2020-09-01 09:05 | Outpatient (CLI) | payer OTHER, SELFPAY ==
[2020-08-30 14:42] VITALS: BMI 50.1
--- NOTE | 2020-09-01 09:09 | US_ITS ---
STUDY: ULTRASOUND BREAST - RIGHT REASON FOR EXAM: Female, 25 years old. Right periareolar pain. TECHNIQUE: Axial and longitudinal images of the RIGHT breast were performed with a high resolution ultrasound transducer. # OF IMAGES: 33 COMPARISON: Comparison is made with prior mammogram done earlier today. FINDINGS: RIGHT Breast: The retroareolar region of the right breast was examined by ultrasound. No sonographic abnormality is seen. US/Breast Limited Unilateral IMPRESSION: No sonographic abnormality is seen. ASSESSMENT CATEGORY: BIRADS Category 1: Negative. A letter regarding these results will be sent to the patient by the facility within 30 days. Electronically Signed: Roni Lauren, at 13:50 EST , Service support ,
--- NOTE | 2020-09-01 09:09 | BI_ITS ---
MAMMOGRAPHY - BILATERAL DIAGNOSTIC REASON FOR EXAM: Female, 25 years old. 8 month . Right nipple pain and swelling. PERTINENT HISTORY: Non-contributory. TECHNIQUE: Digital bilateral breast janice (3D mammographic acquisition) in the CC and MLO projections. 2-D mediolateral oblique (MLO) and craniocaudad (CC) views of both breasts were obtained. CAD: Full Field Digital Mammography with Computer Added Detection was performed. COMPARISON: None. Baseline examination. FINDINGS: Breast Composition: The breasts are heterogeneously dense, which may obscure small masses. There are no dominant masses or suspicious calcifications. No other significant abnormalities are identified. BI/DIAG MAMM W/CAD, BILAT IMPRESSION: Negative diagnostic mammogram. With the patient''s history of right nipple pain and swelling, correlation with ultrasound is recommended. ASSESSMENT CATEGORY: BIRADS Category 0: Incomplete. Need additional imaging evaluation. A letter regarding these results will be sent to the patient by the facility within 30 days. Approximately 10% of breast cancers are not detected by mammography. A normal mammogram should not delay biopsy of a clinically suspicious abnormality. Electronically Signed: Roni Lauren, at 10:39 EST , Service support ,
== END ==
PROVIDERS: PCP Family Medicine; Referring Provider Obstetrics & Gynecology; Visit Provider Obstetrics & Gynecology
DX: N64.4 Mastodynia (principal)
CPT/HCPCS: 76642; 77062; 77063; 77066; G0279

== ENCOUNTER → 2021-08-24 15:27 | Outpatient (CLI) | payer OTHER, SELFPAY ==
--- NOTE | 2021-08-24 15:28 | RAD_ITS ---
STUDY: X-RAY CHEST REASON FOR EXAM: Female, 26 years old. CHEST PAIN COUGH TECHNIQUE: XR Chest 2 Views COMPARISON: None FINDINGS: There is no demonstrated pleural abnormality. Normal size heart. Normal mediastinum and starr. Normal visualized pulmonary arteries. Normal visualized aortic arch and descending thoracic aorta. Normal visualized thoracic spine. Normal visualized ribs, clavicles, and shoulders. There is no demonstrated abnormality of the visualized soft tissue structures of the upper abdomen. RAD/Chest PA and Lateral IMPRESSION: There are no acute findings. Electronically Signed: Christiano Govea MD at 15:50 EST , Service support ,
== END ==
PROVIDERS: PCP Family Medicine; Referring Provider Family Medicine; Visit Provider Family Medicine
DX: R05.9 Cough, unspecified (principal)
CPT/HCPCS: 71046

== ENCOUNTER → 2022-03-09 | Outpatient (CLI) | payer OTHER, SELFPAY ==
[2022-03-09 13:20] LABS: Vitamin D,25 Hydroxy 27.6 ng/mL
[2022-03-09 13:22] LABS: Cholesterol 156 mg/dL (200); High Density Lipoprotein 34 mg/dL; Triglycerides 120 mg/dL; Very Low Density Lipoprotein 24 mg/dL (5-40)
[2022-03-09 15:23] LABS: Hemoglobin A1c 5.2 % (3.8-5.6)
== END | disposition home or self-care (01) ==
LOC: PAVLAB 12:26
PROVIDERS: PCP Family Medicine; Referring Provider Obstetrics & Gynecology; Visit Provider Obstetrics & Gynecology
DX: E66.01 Morbid (severe) obesity due to excess calories (principal); Z68.42 Body mass index [BMI] 45.0-49.9, adult
CPT/HCPCS: 36415; 80061; 82306; 83036

== ENCOUNTER → 2022-04-06 | Outpatient (CLI) | payer OTHER, SELFPAY ==
--- NOTE | 2022-04-06 09:12 | EKG12_ITS ---
Test Reason : PALPS Blood Pressure : / mmHG Vent. Rate : 084 BPM Atrial Rate : 084 BPM P-R Int : 138 ms QRS Dur : 084 ms QT Int : 356 ms P-R-T Axes : 019 004 022 degrees QTc Int : 420 ms Normal sinus rhythm with sinus arrhythmia Normal ECG Confirmed by FROILAN HOOD, IGLESIA ([id number]), editorial intern PHIL MAHARAJ ([id number]) on 04/07/2022 1:51:37 PM Referred By: Nicole Reagan Confirmed By:IGLESIA MCGOVERN MD
== END | disposition home or self-care (01) ==
LOC: PSN 09:12
PROVIDERS: PCP Family Medicine; Referring Provider Obstetrics & Gynecology; Visit Provider Obstetrics & Gynecology
DX: F41.9 Anxiety disorder, unspecified (principal)
CPT/HCPCS: 93005

== ENCOUNTER → 2023-03-15 | Outpatient (CLI) | payer OTHER, SELFPAY ==
[2023-03-15 13:29] LABS: NATERA MAILED SPECIMEN
[2023-03-20 15:28] LABS: HPV Reflexed? NOT INDICATED
== END | disposition home or self-care (01) ==
PROVIDERS: PCP Family Medicine; Referring Provider Obstetrics & Gynecology; Visit Provider Obstetrics & Gynecology
DX: Z12.4 Encounter for screening for malignant neoplasm of cervix (principal)
CPT/HCPCS: 36415; 88175; G0145

== ENCOUNTER 2024-02-13 20:30 | Observation (INO) | payer OTHER, SELFPAY ==
[2024-02-13 20:31] VITALS: BP 140/99; PULSE 123; RESP 18; TEMP 36.7; O2SAT 99; BMI 47.5
[2024-02-13 20:57] LABS: Mucous, Urine 0 SEEN /hpf (<or=2+); Red Blood Cells-Urine 0 SEEN /hpf (0-5)
[2024-02-13 20:59] LABS: Color, Urine Yellow (Yellow); Glucose, Dipstick Normal (Normal); Ketone-Dipstick Negative (Negative); Leukocyte Esterase-Dipstick 25 /ul (Negative); Nitrite-Dipstick Negative (Negative); Occult Blood-Urine Negative /ul (Negative); Protein-Dipstick Negative (Negative); Urine Bilirubin Dipstick Negative (Negative); Urine Clarity Clear (Clear); Urine Urobilinogen Normal (Normal)
[2024-02-13 21:06] LABS: Bacteria 1+ /hpf (None Seen)
[2024-02-13 21:07] LABS: Squamous Epithelial Cells - UA 0-5 SEEN /hpf (5-10); White Blood Cells 0-5 SEEN /hpf (0-5)
[2024-02-13 21:17] LABS: Absolute Lymphocyte Count 2.43 X10^3/uL (0.83-4.51); Absolute Neutrophil Count 11.3 X10^3/uL (2.0-7.7); Basophil# 0.07 X10^3/uL; Basophil% 0.5 % (0-1); Eosinophil# 0.13 X10^3/uL; Eosinophils% 0.9 % (0-5); Hematocrit 40.4 % (37-47); Hemoglobin 12.4 g/dL (12.0-15.0); Lymphocyte # 2.43 X10^3/ul (0.83-4.51); Lymphocyte % 16.5 % (19-41); Mean Corp Hgb Conc 30.7 g/dL (32-36); Mean Corpuscular Hgb 24.6 pg (27.0-32.0); Mean Corpuscular Volume 80.2 fL (81-99); Mean Platelet Vol. 8.8 fl (6.2-12.0); Monocyte# 0.78 X10^3/uL; Monocyte% 5.3 % (0-10); NRBC Flagged by Analyzer 0 % (0-5); Neutrophil % 76.4 % (47-70); Platelet Count 324 K/mm3 (150-450); RBC Distribution Width CV 14.5 % (11.6-14.6); RBC Distribution Width SD 42.3 fl (35.1-43.9); Red Blood Count 5.04 M/mm3 (4.2-5.4); White Blood Count 14.8 K/mm3 (4.4-11.0)
[2024-02-13 21:31] LABS: Internal QC Validated? YES +Cl - CLEAR BKGD; Pregnancy, Serum, hCG Quali. NEGATIVE Negative
[2024-02-13 21:38] LABS: AST(SGOT) 4 U/L (15-37); Alanine Aminotransfer ALT/SGPT 15 U/L (13-56); Albumin, Serum 3.7 g/dL (3.2-5.0); Alkaline Phosphatase 82 U/L (45-117); Anion Gap 6 (5-15); BUN 13 mg/dL (7-18); BUN/Creat Ratio 13.2 RATIO (10-20); Calcium,Total 9.2 mg/dL (8.5-10.1); Chloride 110 mmol/L (98-107); Creatinine, Serum 0.99 mg/dL (0.55-1.02); EST Glomerular Filtration Rate 70 mL/min (>60); Est Glom Filt Rate - Afr Amer 85 mL/min (>60); Estimated Creatinine Clearance 106.11 ml/min; Globulin 3.8 g/dL (2.2-4.2); Glucose 107 mg/dL (74-106); Potassium 3.7 mmol/L (3.5-5.1); Protein, Total 7.5 g/dL (6.4-8.2); Sodium Level 138 mmol/L (136-145)
--- NOTE | 2024-02-13 22:10 | CT_ITS ---
STUDY: CT ABDOMEN AND PELVIS WITH CONTRAST REASON FOR EXAM: Female, 28 years old. RLQ pain RADIATION DOSAGE (If Supplied By Facility): CTDIvol = ( 17.04 ) mGy, DLP = ( 1394.17 ) mGycm TECHNIQUE: Transaxial images were obtained from the dome of the diaphragm to the symphysis pubis without oral contrast. IV 100mL Isovue-[id number] was administered. Sagittal and coronal images were reconstructed. Individualized dose optimization techniques were used for this CT. COMPARISON: None. FINDINGS: The visualized lung bases are unremarkable. The visualized portions of the heart are within normal limits. There is decreased attenuation of the liver consistent with steatosis. There is hepatomegaly. Normal gallbladder and extrahepatic biliary system. Normal spleen. Normal pancreas. Normal bilateral adrenal glands. Normal right kidney. Normal left kidney. Evaluation of the GI tract is limited by absence of oral contrast. Cannot exclude stomach wall thickening. No dilated loops of bowel or evidence for obstruction. Cannot exclude segmental thickening of the villanueva of the small or large bowel. Cannot exclude enteritis or colitis. Appendix within normal limits. Normal abdominal aorta. Normal inferior vena cava. Normal retroperitoneum. Normal urinary bladder. Normal visualized uterus. Normal abdominal wall. Normal osseous structures. CT/Abdomen/Pelvis W IV Cont ONLY IMPRESSION: No definite acute or significant abnormality seen. Electronically Signed: Reagan Mata MD at 22:26 EDT ,
[2024-02-13] MEDS: Ondansetron 4 MG/2 ML Vial IV (22:20)
[2024-02-13] MEDS: Morphine 4 MG/ML Syringe IV (22:24)
[2024-02-13] MEDS: 0.9% Normal Saline (1000mL) 1,000 ML 999 ML IV ×2 (22:24→23:43)
[2024-02-13] MEDS: Piperacil/Tazobactam 3.375 GM in 0.9% Normal Saline (50mL MB+) 50 ML IV (22:44)
[2024-02-13 22:45] VITALS: BP 115/77; PULSE 81; RESP 18; O2SAT 99
[2024-02-14] VITALS (20 sets, daily range): BP systolic 117–147; BP diastolic 73–113; PULSE 72–116; RESP 14–18; TEMP 36.3–37.6; O2SAT 94–100; BMI 49.4; BMI 47.5
[2024-02-14] MEDS: Morphine 4 MG/ML Syringe IV (01:18)
[2024-02-14] MEDS: HYDROmorphone 0.5 MG/0.5 ML SYRINGE IV (03:06)
--- NOTE | 2024-02-14 04:45 | EDS_ITS ---
HPI History of Present Illness Chief Complaint: Abd Pain Informant: patient and friend Narrative Narrative: Patient is a 28-year-old female with past medical history of anxiety. She states that on Sunday she developed generalized abdominal discomfort and then Sunday began with bouts of nausea and vomiting as well as 1-2 episodes of loose stool. She states the pain also moved into the right lower quadrant and increased in severity. She contacted family and there is concern this could be related to an infectious process and therefore she was brought in for evaluation [facility] Medical History Pre-eclampsia, Home Medications ?Medication ?Instructions ?Recorded ?Last Taken ?Type topiramate 50 mg tablet See Rx Instructions .Route 04/09/23 Unknown Rx .COMPLEX #60 tabs phentermine 37.5 mg tablet 18.75 mg (1/2 x 37.5 mg) PO QDAY 06/08/23 Unknown Rx (Adipex-P) #15 tabs levocetirizine 5 mg tablet (24HR 5 mg PO DAILY 02/13/24 Unknown History Allergy Relief) Allergy/AdvReac Type Severity Reaction Status Date / Time No Known Allergies Allergy Verified 02/13/24 20:34 Family History Mother , age 33 Leukemia Grandmother Pancreatic cancer Grandfather Cancer Father Skin cancer Grandmother Breast cancer Surgical History delivery delivered Social History household members: spouse and children housing: house current occupational status: employed Smoking Status: Never smoker alcohol intake: never substance use type: does not use caffeine: Yes what type of physical activity do you participate in: weight training frequency: 3-4 times per week seatbelt use: always do you feel safe at home: Yes 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 [employer] ROS ED Constitutional Constitutional ED: Denies chills or fever(s) ENT ENT ED: Denies sore throat Cardiovascular Cardiovascular: Denies chest pain Respiratory/Chest Respiratory/Chest: Denies cough or dyspnea Gastrointestinal Gastrointestinal: Reports abdominal pain, diarrhea, nausea and vomiting Genitourinary Genitourinary ED: Denies dysuria Musculoskeletal Musculoskeletal: Denies back pain or myalgias Integumentary Denies rash Neurologic Neurologic: Denies headache(s) Hematologic/Lymphatic Hematologic/Lymphatic: Denies easy bleeding or easy bruising EXAM Physical Exam Const Vital Signs: 02/13/24 20:31 02/13/24 22:45 02/14/24 00:00 Temperature 98.0 F Temperature Source Temporal Pulse Rate 123 H 81 72 Respiratory Rate 18 18 14 Blood Pressure 140/99 H 115/77 129/93 H Blood Pressure Mean 112 89 105 Pulse Ox 99 99 95 Oxygen Delivery Method Room Air Room Air 02/14/24 01:21 02/14/24 03:00 02/14/24 04:00 Temperature Temperature Source Pulse Rate 93 89 96 Respiratory Rate 18 16 16 Blood Pressure 147/113 H 129/101 H 117/73 Blood Pressure Mean 124 110 87 Pulse Ox 98 100 100 Oxygen Delivery Method Room Air Room Air Room Air 02/14/24 05:24 02/14/24 05:31 02/14/24 06:30 Temperature 98.5 F 98.5 F 98.5 F Temperature Source Oral Pulse Rate 104 H 101 H 101 H Respiratory Rate 16 16 16 Blood Pressure 117/73 124/89 H 124/89 H Blood Pressure Mean 87 100 Pulse Ox 100 99 99 Oxygen Delivery Method Room Air Positive well nourished, well developed and obese General Appearance ED: well developed; Negative for pallor Nutritional Appearance: obese HEENT Reports moist mucous membranes HEENT Narrative: No tongue or lip swelling no oral lesions no airway edema or compromise No secondary findings in the posterior pharynx to suggest infection Eyes PERRL and EOMs intact bilaterally General Eye ED: Negative for scleral icterus Neck supple Neck Narrative: No nuchal rigidity or meningeal signs Resp normal respiratory effort and clear to auscultation bilaterally Cardio regular rhythm Rate: tachycardic and other Other Details: Tachycardic rate with regular rhythm Radial and carotid pulses are equal and symmetric GI non-distended GI Narrative: Abdomen is obese soft and nondistended with normal active bowel sounds. Patient has involuntary guarding in the right lower quadrant over top McBurney's point. Positive heel strike psoas and obturator signs as well. Auscultation: normoactive bowel sounds Palpation: soft Back/Spine no CVA tenderness Extremity normal to inspection Neuro oriented x3, CN's II-XII intact bilaterally and no sensory deficits noted Sensorium / Orientation: alert Motor Exam: strength 5/5 throughout Psych mental status grossly normal Skin no rashes or lesions noted and no wounds General Skin Exam: Negative for jaundice or pallor MDM MDM MDM Narrative Medical decision making narrative: Patient arrived to the ER tachycardic but otherwise afebrile. She reported abdominal pain that was generalized and then moved to the right lower quadrant as well as bouts of nausea vomiting loose stool. Differential diagnosis is for acute appendicitis versus colitis versus UTI versus biliary colic versus pancreatitis. Basic labs were obtained and reveal an elevated white count of 14.8 but otherwise no clinically significant findings. Initial CT scan with IV contrast only did not show any signs of acute appendicitis. However her symptoms and history and exam are consistent for this so therefore the case was discussed with general surgeon Dr. Cruz. He recommends a CT with oral and IV contrast. This was performed and repeat scan does now show some dilation of the appendix with surrounding fat stranding concerning for early acute appendicitis which correlates with her physical exam and history. The patient was given Zosyn and general surgery was contacted once again. Based on the increased read patient was evaluated and they do agree that symptoms are most consistent with acute appendicitis and therefore will take the patient to the operating room for further care History & Record Review Discussion w/independent historian: Patient and Family Lab Data Attestation: I reviewed the patient's lab results. Labs: Laboratory Results - last 24 hr 02/13/24 02/13/24 20:45 21:00 WBC 14.8 H RBC 5.04 Hgb 12.4 Hct 40.4 MCV 80.2 L MCH 24.6 L MCHC 30.7 L RDW Std Deviation 42.3 RDW Coeff of Joey 14.5 Plt Count 324 MPV 8.8 Immature Gran % (Auto) 0.400 Neut % (Auto) 76.4 H Lymph % (Auto) 16.5 L [place] % (Auto) 5.3 Eos % (Auto) 0.9 Baso % (Auto) 0.5 Absolute Neuts (auto) 11.3 H Absolute Lymphs (auto) 2.43 Nucleated RBC % 0 Sodium 138 Potassium 3.7 Chloride 110 H Carbon Dioxide 22.0 Anion Gap 6 BUN 13 Creatinine 0.99 Estim Creat Clear Calc 106.11 Est GFR (MDRD) Af Amer 85 Est GFR (MDRD) Non-Af 70 BUN/Creatinine Ratio 13.2 Glucose 107 H Calcium 9.2 Total Bilirubin 0.40 AST 4 L ALT 15 Alkaline Phosphatase 82 Total Protein 7.5 Albumin 3.7 Globulin 3.8 Albumin/Globulin Ratio 1.0 Serum , Qual NEGATIVE Urine Color Yellow Urine Clarity Clear Urine pH 6.0 Ur Specific Berry 1.020 Urine Protein Negative Urine Glucose (UA) Normal Urine Ketones Negative Urine Occult Blood Negative Urine Nitrite Negative Urine Bilirubin Negative Urine Urobilinogen Normal Ur Leukocyte Esterase 25 H Urine RBC 0 SEEN Urine WBC 0-5 SEEN Ur Squamous Epith Cells 0-5 SEEN Urine Bacteria 1+ Urine Mucus 0 SEEN Radiography Diagnostic Testing: Clinical Impression(s) from Imaging Studies Abdomen/Pelvis CT 02/13/24 22:10 IMPRESSION: No definite acute or significant abnormality seen. Electronically Signed: Reagan Mata MD at 22:26 EDT Reading Location ID and State: [facility] / [place] , Service support , Abdomen/Pelvis CT 02/14/24 23:33 IMPRESSION: Borderline appendix enlargement to 7.5 mm in the midportion with trace adjacent inflammatory stranding, overall nonspecific but cannot exclude acute appendicitis. Electronically Signed: Ochoa Tapia MD at 2:19 EDT , ADDENDUM: 02/14/24 0228 IMPRESSION: Borderline appendix enlargement to 7.5 mm in the midportion with trace adjacent inflammatory stranding, overall nonspecific but cannot exclude acute appendicitis. N.B. : The above Results were Read Back by Ochoa Tapia MD to Kirill Birch DO, and understanding confirmed on 02/14/2024 02:21:44 (ET). 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
--- NOTE | 2024-02-14 05:27 | PCM.HP.STD ---
HPI - General General Date of Service: 02/14/24 Chief Complaint: Acute onset abdominal pain HPI Narrative MILANA DIAZ, is a 28 F who presents to [facility] with complaints of abdominal pain beginning 48 hours ago that started out generalized but became localized to the right lower quadrant. This pain is associated with nausea, vomiting, and loose stool. She states that when it first began it was of lesser intensity but yesterday became very tender and sharp. She denies any sick contacts. She shares that she previously had kidney stones when she was with her twins but this has felt very different from that experience. She denies any experience of fevers. Patient's ER workup was notable for CT of the abdomen pelvis obtained without contrast that seem to show a normal appendix, however, emergency medicine remains very suspicious for diagnosis of appendicitis and telephoned need to solicit my opinion on whether or not a repeat scan with contrast would be more definitive. I encouraged them to do so given that there was a question the diagnosis and that radiology had suggested the possibility of colitis which should be better visualized with enteric contrast. Thus the study was repeated with enteric contrast and the read following the completion of that imaging was read as concerning for possible early acute appendicitis and a appendiceal diameter measured at 7.5 mm. Patient has a past medical history of morbid obesity on Topamax and Adipex. Surgically?speaking she has just a history of section. [facility] Medical History (Updated 02/14/24 @ 04:[address] Kirill Birch, DO) Pre-eclampsia, Home Medications ?Medication ?Instructions ?Recorded ?Last Taken ?Type topiramate 50 mg tablet See Rx Instructions .Route 04/09/23 Unknown Rx .COMPLEX #60 tabs phentermine 37.5 mg tablet 18.75 mg (1/2 x 37.5 mg) PO QDAY 06/08/23 Unknown Rx (Adipex-P) #15 tabs levocetirizine 5 mg tablet (24HR 5 mg PO DAILY 02/13/24 Unknown History Allergy Relief) Allergy/AdvReac Type Severity Reaction Status Date / Time No Known Allergies Allergy Verified 02/13/24 20:34 Family History (Updated 03/15/23 @ 11:29 by Haylee Mesa) Mother , age 33 Leukemia Grandmother Pancreatic cancer Grandfather Cancer Father Skin cancer Grandmother Breast cancer Surgical History delivery delivered Social History (Updated 02/13/24 @ 21:44 by Kourtney Junior) household members: spouse and children housing: house current occupational status: employed Smoking Status: Never smoker alcohol intake: never substance use type: does not use caffeine: Yes what type of physical activity do you participate in: weight training frequency: 3-4 times per week seatbelt use: always do you feel safe at home: Yes 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 [employer] Gastrointestinal Gastrointestinal: Reports abdominal pain, diarrhea, nausea and vomiting Vital Signs Vital Signs Vital Signs: 02/13/24 20:31 02/13/24 22:45 02/14/24 00:00 Temperature 98.0 F Temperature Source Temporal Pulse Rate 123 H 81 72 Respiratory Rate 18 18 14 Blood Pressure 140/99 H 115/77 129/93 H Blood Pressure Mean 112 89 105 Pulse Ox 99 99 95 Oxygen Delivery Method Room Air Room Air 02/14/24 01:21 02/14/24 03:00 02/14/24 04:00 Temperature Temperature Source Pulse Rate 93 89 96 Respiratory Rate 18 16 16 Blood Pressure 147/113 H 129/101 H 117/73 Blood Pressure Mean 124 110 87 Pulse Ox 98 100 100 Oxygen Delivery Method Room Air Room Air Room Air Weight Weight: 268 lb 9 oz Body Mass Index (BMI) 47.5 Physical Exam Const alert and oriented x3 Constitutional Narrative: Patient appears in some distress from her right lower quadrant discomfort which she states is a 3 out of 10 at rest General Appearance: cooperative Resp normal respiratory effort GI GI Narrative: Morbid obesity, well-healed scar, otherwise no evidence of prior operation or hernia, nondistended, soft, tender to palpation over McBurney's point and even slightly more laterally. Positive Rovsing. Negative psoas, negative obturator Results Lab / Micro Data 02/13/24 21:00 02/13/24 21:00 Labs: Laboratory Results - last 24 hr 02/13/24 20:45: Urine Color Yellow, Urine Clarity Clear, Urine pH 6.0, Ur Specific [place]eebles 1.020, Urine Protein Negative, Urine Glucose (UA) Normal, Urine Ketones Negative, Urine Occult Blood Negative, Urine Nitrite Negative, Urine Bilirubin Negative, Urine Urobilinogen Normal, Ur Leukocyte Esterase 25 H, Urine RBC 0 SEEN, Urine WBC 0-5 SEEN, Ur Squamous Epith Cells 0-5 SEEN, Urine Bacteria 1+, Urine Mucus 0 SEEN 02/13/24 21:00: WBC 14.8 H, RBC 5.04, Hgb 12.4, Hct 40.4, MCV 80.2 L, MCH 24.6 L, MCHC 30.7 L, RDW Std Deviation 42.3, RDW Coeff of Joey 14.5, Plt Count 324, MPV 8.8, Immature Gran % (Auto) 0.400, Neut % (Auto) 76.4 H, Lymph % (Auto) 16.5 L, Gray % (Auto) 5.3, Eos % (Auto) 0.9, Baso % (Auto) 0.5, Absolute Neuts (auto) 11.3 H, Absolute Lymphs (auto) 2.43, Nucleated RBC % 0, Sodium 138, Potassium 3.7, Chloride 110 H, Carbon Dioxide 22.0, Anion Gap 6, BUN 13, Creatinine 0.99, Estim Creat Clear Calc 106.11, Est GFR (MDRD) Af Amer 85, Est GFR (MDRD) Non-Af 70, BUN/Creatinine Ratio 13.2, Glucose 107 H, Calcium 9.2, Total Bilirubin 0.40, AST 4 L, ALT 15, Alkaline Phosphatase 82, Total Protein 7.5, Albumin 3.7, Globulin 3.8, Albumin/Globulin Ratio 1.0, Serum , Qual NEGATIVE Imaging Radiology Impression Abdomen/Pelvis CT 02/13/24 22:10 IMPRESSION: No definite acute or significant abnormality seen. Electronically Signed: Reagan Mata MD at 22:26 EDT , Abdomen/Pelvis CT 02/14/24 23:33 IMPRESSION: Borderline appendix enlargement to 7.5 mm in the midportion with trace adjacent inflammatory stranding, overall nonspecific but cannot exclude acute appendicitis. Electronically Signed: Ochoa Tapia MD at 2:19 EDT , ADDENDUM: 02/14/24 0228 IMPRESSION: Borderline appendix enlargement to 7.5 mm in the midportion with trace adjacent inflammatory stranding, overall nonspecific but cannot exclude acute appendicitis. N.B. : The above Results were Read Back by Ochoa Tapia MD to Kirill Birch DO, and understanding confirmed on 02/14/2024 02:21:44 (ET). Electronically Signed: Ochoa Tapia MD at 2:19 EDT , Assessment & Plan Assessment/Plan (1) Acute appendicitis: PLAN: Patient is a 28-year-old female presenting with roughly 48-hour history of acute onset abdominal pain that became localized to right lower quadrant and was associated with other signs and symptoms consistent with a diagnosis of acute appendicitis. Noncontrasted CT imaging of the abdomen pelvis was originally read as concerning for appendicitis, but when the study was repeated with enteric contrast radiology overturned their previous read and stated that it was consistent with at least a mild degree of inflammation. Patient's exam is further consistent with this diagnosis and I discussed management of appendicitis to include antibiotic therapy as well as recommended surgical appendectomy. I discussed the antibiotic?only approach but gave my rationale for also recommending surgical appendectomy and patient was receptive of this recommendation. Upon finding this corporate receptionist details of the procedure were discussed?including postoperative expectations. Shared with patient that barring any surprising findings intraoperatively we should be able to evaluate her for postoperative discharge but would ultimately proceed with expectant manner. Patient be consented for laparoscopic appendectomy. Antibiotics will likely need to be reduced just prior to her operation given there prior dosing around 10 PM with 3.375 mg Zosyn. Case presently slated for 6:00 AM. Luis Eduardo Cruz MD General Surgery Endocrine Surgery Pager: [facility] [address] [place] [address], [address] [place] [address] Office: [phone] Charges/Coding Visit Charges Office Visits / Consults: 65536 ED Visit; High/Urgent Severity
--- NOTE | 2024-02-14 06:20 | APP_PTH ---
PATIENT: MILANA DIAZ LOC: MS3 U#:[id number] AGE/SX: 28/F ROOM: FL325 RE02/14/[address]: Dr. Luis Eduardo Cruz MD : 1995 BED: 1 DIS: 02/14/2024 SPEC #: [id number] RECD: 02/14/24 08:07 STATUS: LUIS MCKEON #: [id number] LUANN: 02/14/24 06:[address]: Luis Eduardo Cruz DEPT: SURGICAL PATHOLOGY RECD BY: Lena Adam ENTERED: 02/14/24 11:38 SP TYPE: APPENDIX OTHR DR: Dr. Tabitha Overton MD Tissues: Appendix, NOS Procedures: Surgery Specimen Level III HEADER OPERATION: Laparoscopic, appendectomy PRE-OP DIAGNOSIS: Acute appendicitis TISSUE SUBMITTED: Appendix MICROSCOPIC DIAGNOSIS Appendix, appendectomy: Acute appendicitis. AM/ 02/15/2024 MICROSCOPIC DESCRIPTION Slides are reviewed. GROSS DESCRIPTION Received in fixative is one container labeled with the patient's name and designated appendix. The specimen consists of vermiform appendix measuring 6.0 cm in length and 1.0 cm in average diameter. No gross perforations are evident. Serial sections reveal a patent lumen. No mass lesion is identified. Shoder Filler sections are submitted in one cassette. / AM: 02/14/2024 TC:2 CPT: 76516
--- NOTE | 2024-02-14 06:24 | PRE.ANES_ITS ---
ASA Classification* ASA Classification ASA Classification: 3 Assessment & Plan Anesthesia* Anesthesia Assessment Anesthesia Assessment: Discussed sedation and/or anesthesia options, risks, benefits, and alternatives with patient/parents/legal guardian/POA. Questions invited. The patient/parents/legal guardian/POA seems to understand and agrees to proceed with anesthesia plan. Reviewed the physical assessment, medical history, allergy history and patient home medications list prior to surgery/procedure/anesthetic and documented any changes. Performed airway and anesthesia risk assessments. Anesthesia Type Anesthesia Type: General History Source History Obtained from:: Patient and Chart Pre-Assessment Diagnosis/Proposed Procedure Planned Operative Procedure(s): Laparoscopic appendectomy Anesthesia History Anesthesia History - sole conditioner: Anesthesia History - sole conditioner Hx Hospitalization No 11/16/22 10:15 Any Problems With Anesthesia No 02/14/24 05:24 Cholinesterase deficiency No 02/14/24 05:24 You/Your Family Experience No 02/14/24 05:24 fever (hyperthermia) with Relationship Recent Exposure to Contagious No 02/14/24 05:24 Disease Does patient have nerve No 02/14/24 05:24 stimulator Patient instructed to have No 02/14/24 05:24 device shut off --Does patient have Pacemaker No 02/14/24 05:24 or ICD? When Was Last Pacemaker Check QUESTION #4 FULL TEXT: You/Your Family Experience fever (hyperthermia) with Anesthesia Last Oral Intake Last Oral intake: Last Oral Intake NPO since 00:30 02/14/24 05:24 Meds taken in AM with sips of water? Meds patient instructed to CT DRINK 02/14/24 05:24 take am of surgery PONV PONV - sole conditioner: PONV - sole conditioner Female HX of Motion Sickness HX of N/V After Surgery Non-Smoker Duration of Surgery greater than 60 minutes Number of Risk Factors PONV Score Any additional information?: Yes Female: Yes HX of Motion Sickness: Yes HX of N/V After Surgery: Yes Non-Smoker: No Duration of Surgery greater than 60 minutes: Yes Number of Risk Factors: 4 PONV Score: Severe Risk Height & Weight Height & Weight: Anesthesia: Height & Weight Height 5 ft 3 in 02/14/24 05:24 Weight: 121.818 kg 02/14/24 05:24 Body Mass Index (BMI) 47.5 02/14/24 05:24 Respiratory Assessment Respiratory Assessment - sole conditioner: Respiratory Tract Infection Hx - sole conditioner Hx Respiratory Tract Infection No 02/14/24 05:24 STOP Sleep Apnea STOP Sleep Apnea - sole conditioner: STOP Sleep Apnea - sole conditioner Hx Hypertension No 02/14/24 05:24 Hx Sleep Apnea No 02/14/24 05:24 CPAP BIPAP Do you snore loudly (louder Yes 02/14/24 05:24 than talking or can be heard Do you often feel tired/ Yes 02/14/24 05:24 fatigued/ sleepy during daytime? Has anyone observed you stop Yes 02/14/24 05:24 breathing during sleep? STOP Results Positive 02/14/24 05:24 QUESTION #5 FULL TEXT : Do you snore loudly (louder than talking or can be heard through closed doors)? 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 Specify any problems Hx of Preganancy in last 3 Months Nurse Filling Out Transfusion & Questions: Date: Time: Patient unable to answer at this time (ie. confused, unrespo /Reproduction History /Reproductive History - sole conditioner: /Reproductive Hx- sole conditioner Hx Now No 02/14/24 05:24 Gestational Age (in weeks): EDC: Hx Hx Para Hx Section SAB No 02/14/24 05:24 Anesthesia Focused Assessment* Temperature: 98.5 F Pulse Rate: 101 Blood Pressure: 124/89 Respiratory Rate: 16 Pulse Ox: 99 Airway Assessment Mouth opens: >3 cm Mallampati Score: I Teeth Condition: Intact Neck Range of motion (ROM): Full ROM Focused Labs Anesthesia Preop lab: CBC WBC 14.8 K/mm3 (4.4-11.0) H 02/13/24 21:00 RBC 5.04 M/mm3 (4.2-5.4) 02/13/24 21:00 Hgb 12.4 g/dL (12.0-15.0) 02/13/24 21:00 Hct 40.4 % (37-47) 02/13/24 21:00 Plt Count 324 K/mm3 (150-450) 02/13/24 21:00 CHEMISTRY Potassium 3.7 mmol/L (3.5-5.1) 02/13/24 21:00 Sodium 138 mmol/L (136-145) 02/13/24 21:00 Magnesium 6.6 mg/dL (1.6-2.6) H* 01/15/20 12:00 BUN 13 mg/dL (7-18) 02/13/24 21:00 Creatinine 0.99 mg/dL (0.55-1.02) 02/13/24 21:00 Glucose 107 mg/dL (74-106) H 02/13/24 21:00 TSH 2.48 uIU/mL (0.358-3.74) 08/17/20 11:42 COAG PT 14.4 SECONDS (11.7-14.9) 01/14/20 21:00 Review of Systems (Anesthesia) ROS Narrative System reviewed and no additional complaints, except as documented. [facility] Medical History Pre-eclampsia, Home Medications ?Medication ?Instructions ?Recorded ?Last Taken ?Type topiramate 50 mg tablet See Rx Instructions .Route 04/09/23 Unknown Rx .COMPLEX #60 tabs phentermine 37.5 mg tablet 18.75 mg (1/2 x 37.5 mg) PO QDAY 06/08/23 Unknown Rx (Adipex-P) #15 tabs levocetirizine 5 mg tablet (24HR 5 mg PO DAILY 02/13/24 Unknown History Allergy Relief) Allergy/AdvReac Type Severity Reaction Status Date / Time No Known Allergies Allergy Verified 02/13/24 20:34 Family History Mother , age 33 Leukemia Grandmother Pancreatic cancer Grandfather Cancer Father Skin cancer Grandmother Breast cancer Surgical History delivery delivered Social History household members: spouse and children housing: house current occupational status: employed Smoking Status: Never smoker alcohol intake: never substance use type: does not use caffeine: Yes what type of physical activity do you participate in: weight training frequency: 3-4 times per week seatbelt use: always do you feel safe at home: Yes 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
[2024-02-14] MEDS: Piperacil/Tazobactam 3.375 GM in 0.9% Normal Saline (50mL MB+) 50 ML IV (06:30)
[2024-02-14] MEDS: Bupiv/Epi 0.25% 30 ML Vial (06:57)
--- NOTE | 2024-02-14 07:30 | PCM.OPRPT ---
Report of Operation Date of Procedure: 02/14/24 Pre-Operative Diagnosis: Acute appendicitis Post-Operative Diagnosis: 1. Minimal inflammation of the appendix seemingly secondary to 2. Evidence of terminal ileitis with serosal injection of the small bowel Surgery/Procedure Performed:: Laparoscopic appendectomy Description of Surgical Findings:: ? Minimal inflammation of the appendix ? Injection of the terminal ileum Surgeon: Luis Eduardo Cruz Type of Anesthesia: General/Supplemental Anesthesiologist: Casimiro De Dios Specimen's removed: appendix Estimated Blood Loss (mL): 5 Description of Procedure: After appropriate identification in the preoperative holding area, the patient was brought to the operating room and placed supine on the operating room table. Antibiotics required redosing and were administered. Patient was then induced with general endotracheal anesthetic. The abdomen was prepped and draped in usual sterile fashion. Formal timeout was conducted to confirm both the patient and the procedure. A supraumbilical incision was made and carried down to the level of the fascia which was sharply opened. After opening the peritoneum in like fashion a finger sweep was made to confirm position, and a balloon trocar was placed and pneumoperitoneum was established to 15 mmHg. Patient was positioned in Trendelenburg with the left side down. 2 additional 5 mm trocars were placed in the left lower quadrant and suprapubic positions. The peritoneum was inspected and there are no signs of inadvertent injury from this Mckeon entry. The appendix was visualized with evidence of only very mild inflammation. Using blunt laparoscopic dissection, a window was made in the mesoappendix adjacent to the appendiceal base. The mesoappendix was divided with application of a laparoscopic harmonic. Then the base of the appendix was sealed and amputated with the use of an Endo ERIN stapler. The appendix was placed in an Endo Catch bag. The staple line was inspected for hemostasis. As we examined for hemostasis we noted injection of the serosa of the terminal ileal segment but tracing things even more approximately the bowel appeared normal. There was also some evidence of inflammation to the uterus but the right upper quadrant gallbladder and liver were inspected and were unremarkable. After hemostasis was once again confirmed at the staple line, the appendix was removed from the umbilical port site. The 12 mm supraumbilical trocar site was closed in a [id number] fashion with #1 PDS and a Miah Murdock suture passer under laparoscopic direction. Pneumoperitoneum was then evacuated. The port sites were infiltrated with 30 mL local anesthetic. The skin of each port site was closed with 4-0 Monocryl in a subcuticular fashion. Steri-Strips and OpSite dressings were applied. Patient tolerated procedure well without any apparent complications. They were awoken from general anesthetic without issue and transferred to post anesthesia care unit for ongoing recovery. Grafts/Implants Used: None Complications None Admit VTE Documentation VTE Mechan Device Prophylaxis: SCD's Procedures Digestive [id number]-49xxx: [id number] Laparoscopy appendectomy
--- NOTE | 2024-02-14 07:58 | PCM.POST.ANE ---
Anesthesia: Postop Eval I Current Vital Signs Temperature: 99.6 F Pulse Rate: 116 Blood Pressure: 136/84 Respiratory Rate: 18 Pulse Ox: 98 Oxygen Delivery Method: Room Air Assessment Airway patent: Yes Spontaneous unlabored respirations: Yes Mental status: Awake and Calm nausea: No Vomiting: No Anesthesia Complication: No Fluid Hydration Crystalloid volume administer (ml): 300 Total IV fluid infused: 300 Progress Note Anesthesia document: Postop Eval 1 completed: Yes
--- NOTE | 2024-02-14 08:53 | POSTOPAN2_ITS ---
Anesthesia Postop Eval I Sum Postop Eval Completion status Anesthesia document: Postop Eval 1 completed: Yes Anesthesia Postop Eval I Summary Anesthesia Postop Eval I Summary: Anesthesia Postop Eval I: Assessment Summary Airway patent Yes 02/14/24 07:58 RAIL CREW MEMBER.[email or web address] Spontaneous unlabored Yes 02/14/24 07:58 RAIL CREW MEMBER.CSIR respirations Mental status Awake,Calm 02/14/24 07:58 RAIL CREW MEMBER.CSIR nausea No 02/14/24 07:58 RAIL CREW MEMBER.CSIR Vomiting No 02/14/24 07:58 RAIL CREW MEMBER.CSIR Anesthesia Postop Eval I: Fluid Summary Crystalloid volume administer 300 02/14/24 07:58 RAIL CREW MEMBER.CSIR (ml) Colloids volume administered ( ml) Blood Product volume administered (ml) Total IV fluid infused 300 02/14/24 07:58 RAIL CREW MEMBER.CSIR Anesthesia Postop Eval I: Summary Notes Anesthesia Complication No 02/14/24 07:58 RAIL CREW MEMBER.CSIR Anesthesia Complication Comment: Post-operative progress note Anesthesia: Postop Eval II Evaluation Mental status: Awake Pain Level: 3 nausea: No Vomiting: No Complications Anesthesia Complication: No
--- NOTE | 2024-02-14 08:53 | PCM.POSTANE2 ---
Anesthesia Postop Eval I Sum Postop Eval Completion status Anesthesia document: Postop Eval 1 completed: Yes Anesthesia Postop Eval I Summary Anesthesia Postop Eval I Summary: Anesthesia Postop Eval I: Assessment Summary Airway patent Yes 02/14/24 07:58 SENIOR LINUX UNIX ADMINISTRATOR.CSIR Spontaneous unlabored Yes 02/14/24 07:58 SENIOR LINUX UNIX ADMINISTRATOR.CSIR respirations Mental status Awake,Calm 02/14/24 07:58 SENIOR LINUX UNIX ADMINISTRATOR.CSIR nausea No 02/14/24 07:58 SENIOR LINUX UNIX ADMINISTRATOR.CSIR Vomiting No 02/14/24 07:58 SENIOR LINUX UNIX ADMINISTRATOR.CSIR Anesthesia Postop Eval I: Fluid Summary Crystalloid volume administer 300 02/14/24 07:58 SENIOR LINUX UNIX ADMINISTRATOR.CSIR (ml) Colloids volume administered ( ml) Blood Product volume administered (ml) Total IV fluid infused 300 02/14/24 07:58 SENIOR LINUX UNIX ADMINISTRATOR.CSIR Anesthesia Postop Eval I: Summary Notes Anesthesia Complication No 02/14/24 07:58 SENIOR LINUX UNIX ADMINISTRATOR.CSIR Anesthesia Complication Comment: Post-operative progress note Anesthesia: Postop Eval II Evaluation Mental status: Awake Pain Level: 3 nausea: No Vomiting: No Complications Anesthesia Complication: No
--- NOTE | 2024-02-14 08:54 | POSTOPAN2_ITS ---
Anesthesia Postop Eval I Sum Postop Eval Completion status Anesthesia document: Postop Eval 1 completed: Yes Anesthesia Postop Eval I Summary Anesthesia Postop Eval I Summary: Anesthesia Postop Eval I: Assessment Summary Airway patent Yes 02/14/24 07:58 DEBURRING TECHNICIAN.CSIR Spontaneous unlabored Yes 02/14/24 07:58 DEBURRING TECHNICIAN.CSIR respirations Mental status Awake 02/14/24 08:53 nausea No 02/14/24 08:53 Vomiting No 02/14/24 08:53 Anesthesia Postop Eval I: Fluid Summary Crystalloid volume administer 300 02/14/24 07:58 DEBURRING TECHNICIAN.CSIR (ml) Colloids volume administered ( ml) Blood Product volume administered (ml) Total IV fluid infused 300 02/14/24 07:58 DEBURRING TECHNICIAN.CSIR Anesthesia Postop Eval I: Summary Notes Anesthesia Complication No 02/14/24 08:53 Anesthesia Complication Comment: Post-operative progress note Anesthesia: Postop Eval II Evaluation Mental status: Awake Pain Level: 2 nausea: No Vomiting: No Complications Anesthesia Complication: No
[2024-02-14] MEDS: Ibuprofen 400 MG Tablet PO ×2 (11:49→17:46)
[2024-02-14] MEDS: Acetaminophen 500 MG Tablet PO (13:34)
--- NOTE | 2024-02-14 15:55 | PCM.DC ---
Discharge Instructions Diet Discharge Diet: No restrictions Activity Discharge Activity: May Not Drive (No driving while using narcotic pain medication) and May Shower (Postoperative day 1) May shower in (days): 2 Ice area for (Minutes): 20 Lifting Restrictions: No lifting greater than 15 pounds for 2 weeks after surgery Dressing / Incision Call your doctor if your incision/area has: Continuous Slow Oozing, Increased Pain/ Swelling, Increased Redness, Foul Smelling Discharge and Swelling at the incision site Call your doctor if you observe: Fever of 101 or Higher Remove Dressing in: 2 days (Please leave Steri-Strips intact until they fall off spontaneously or are taken off at your follow-up visit) Cleanse incision/area with: Soap & Water Follow Up Care Please Follow Up With: Luis Eduardo Cruz MD When: 7-10days postop Test Results: Test results from this visit will be discussed in further detail at your follow-up appointment, if applicable. Discharge Plan Admission Admit Date/Time: 02/14/24 07:48 Primary Reason for Your Visit: Status post appendectomy Attending Provider: Luis Eduardo Cruz Primary Care Provider: Tabitha Overton Discharge Orders/Prescriptions Prescriptions: New oxycodone 5 mg Tablet 5 mg PO Q6H PRN PRN (Reason: Pain Score 6-10) 3 Days Qty: 14 0RF Continued phentermine [Adipex-P] 37.5 mg tablet 18.75 mg PO QDAY Qty: 15 2RF Rx Instructions: BMI 42 levocetirizine [24HR Allergy Relief] 5 mg tablet 5 mg PO DAILY topiramate 50 mg tablet See Rx Instructions .ROUTE .COMPLEX Qty: 60 12RF Dose Instruction: TAKE 1 TABLET BY MOUTH TWICE A DAY Rx Instructions: TAKE 1 TABLET BY MOUTH TWICE A DAY Referrals / Follow Up: Tabitha Overton MD [Primary Care Provider] - Disposition Disposition (needs filled in before D/C Order can be placed): Home, Self Care
--- NOTE | 2024-02-14 16:05 | DS.PCM_ITS ---
Providers Date of Admission: 02/14/24 Primary Care Physician: Dr. Tabitha Overton MD Reason For Visit: APPENDICITIS Diagnosis Discharge Diagnosis (1) Acute appendicitis: Status: Acute Code(s): K35.80 - Unspecified acute appendicitis Plan: Patient is a 28-year-old female presenting with roughly 48-hour history of acute onset abdominal pain that became localized to right lower quadrant and was associated with other signs and symptoms consistent with a diagnosis of acute appendicitis. Noncontrasted CT imaging of the abdomen pelvis was originally read as concerning for appendicitis, but when the study was repeated with enteric contrast radiology overturned their previous read and stated that it was consistent with at least a mild degree of inflammation. Patient's exam is further consistent with this diagnosis and I discussed management of appendicitis to include antibiotic therapy as well as recommended surgical appendectomy. I discussed the antibiotic?only approach but gave my rationale for also recommending surgical appendectomy and patient was receptive of this recommendation. Upon finding this weekend receptionist details of the procedure were discussed?including postoperative expectations. Shared with patient that barring any surprising findings intraoperatively we should be able to evaluate her for postoperative discharge but would ultimately proceed with expectant manner. Patient be consented for laparoscopic appendectomy. Antibiotics will likely need to be reduced just prior to her operation given there prior dosing around 10 PM with 3.375 mg Zosyn. Case presently slated for 6:00 AM. Luis Eduardo Cruz MD General Surgery Endocrine Surgery Pager: [facility] [address] [place] [address], [address] [place], [place] [id number] Office: [phone] Medications at Discharge Home Medications topiramate 50 mg tablet See Rx Instructions .Route .COMPLEX #60 tabs 04/09/23 phentermine 37.5 mg tablet (Adipex-P) 18.75 mg (1/2 x 37.5 mg) PO QDAY #15 tabs 06/08/23 levocetirizine 5 mg tablet (24HR Allergy Relief) 5 mg PO DAILY 02/13/24 oxycodone 5 mg tablet 5 mg PO Q6H PRN PRN Pain Score 6-10 3 days #14 tabs 02/14/24 Hospital Course Operations appendectomy (Laparoscopic appendectomy 02/14/2024) Procedures None Summary of Care Provided Hospital Course: Patient is a 28-year-old female who was evaluated in the ER of [facility] beginning 02/13/2024 due to complaints of acute onset abdominal pain that was initially diffuse but became localized right lower quadrant. Noncontrasted CT imaging of the abdomen pelvis was initially read by radiology as unconcerning for appendicitis given a normal?diameter appendix without secondary signs of inflammation. However, emergency medicine repeated the study with enteric contrast and following the second study radiology indicated that appendicitis should be considered given a more prominent appendix at 7.5 mm. Coupling this radiographic read with patient's history, white blood cell count of greater than 14, and consistent exam she was offered laparoscopic appendectomy. Procedure was undertaken in uncomplicated fashion on 02/14/2024. Intraoperatively, however, patient demonstrated minimal inflammation in the appendix and more prominent inflammation of the terminal ileum. Therefore I suspected patient actually had more primary enteritis and may not improve as quickly following appendectomy so she was admitted to observation. After metabolizing the effects of her anesthesia, Mrs. Eaton was provided a diet and oral pain medication. She tolerated these transitions without event and had appropriate pain control. Thus, she was recommended conservative measures for ongoing enteritis but granted discharge to home with instructions for postoperative follow-up. Physical Exam Const alert and oriented x3 Constitutional Narrative: Sleepy General Appearance: cooperative Resp normal respiratory effort GI GI Narrative: Operative dressings intact, soft, appropriately tender to palpation Weight / BMI Weight Weight: 268 lb 9 oz Body Mass Index (BMI) 47.5 ABG / Lab / Microbiology Data 02/13/24 21:00 02/13/24 21:00 Laboratory: Laboratory Results - last 24 hr 02/13/24 20:45: Urine Color Yellow, Urine Clarity Clear, Urine pH 6.0, Ur Specific [place] 1.020, Urine Protein Negative, Urine Glucose (UA) Normal, Urine Ketones Negative, Urine Occult Blood Negative, Urine Nitrite Negative, Urine Bilirubin Negative, Urine Urobilinogen Normal, Ur Leukocyte Esterase 25 H, Urine RBC 0 SEEN, Urine WBC 0-5 SEEN, Ur Squamous Epith Cells 0-5 SEEN, Urine Bacteria 1+, Urine Mucus 0 SEEN 02/13/24 21:00: WBC 14.8 H, RBC 5.04, Hgb 12.4, Hct 40.4, MCV 80.2 L, MCH 24.6 L , MCHC 30.7 L, RDW Std Deviation 42.3, RDW Coeff of Joey 14.5, Plt Count 324, MPV 8.8, Immature Gran % (Auto) 0.400, Neut % (Auto) 76.4 H, Lymph % (Auto) 16.5 L, Treasure % (Auto) 5.3, Eos % (Auto) 0.9, Baso % (Auto) 0.5, Absolute Neuts (auto) 11.3 H, Absolute Lymphs (auto) 2.43, Nucleated RBC % 0, Sodium 138, Potassium 3.7, Chloride 110 H, Carbon Dioxide 22.0, Anion Gap 6, BUN 13, Creatinine 0.99, Estim Creat Clear Calc 106.11, Est GFR (MDRD) Af Amer 85, Est GFR (MDRD) Non-Af 70, BUN/Creatinine Ratio 13.2, Glucose 107 H, Calcium 9.2, Total Bilirubin 0.40, AST 4 L, ALT 15, Alkaline Phosphatase 82, Total Protein 7.5, Albumin 3.7, Globulin 3.8, Albumin/Globulin Ratio 1.0, Serum , Qual NEGATIVE Radiography Diagnostic Testing: Radiology Impression Abdomen/Pelvis CT 02/13/24 22:10 IMPRESSION: No definite acute or significant abnormality seen. Electronically Signed: Reagan Mata MD at 22:26 EDT , Abdomen/Pelvis CT 02/14/24 23:33 IMPRESSION: Borderline appendix enlargement to 7.5 mm in the midportion with trace adjacent inflammatory stranding, overall nonspecific but cannot exclude acute appendicitis. Electronically Signed: Ochoa Tapia MD at 2:19 EDT , ADDENDUM: 02/14/24 0228 IMPRESSION: Borderline appendix enlargement to 7.5 mm in the midportion with trace adjacent inflammatory stranding, overall nonspecific but cannot exclude acute appendicitis. N.B. : The above Results were Read Back by Ochoa Tapia MD to Kirill Andes , DO, and understanding confirmed on 02/14/2024 02:21:44 (ET). Electronically Signed: Ochoa Tapia MD at 2:19 EDT , D/C Instructions Discharge Diet: No restrictions May shower in (days): 2 Ice area for (Minutes): 20 Call your doctor if your incision/area has: Continuous Slow Oozing, Increased Pain/ Swelling, Increased Redness, Foul Smelling Discharge and Swelling at the incision site Call your doctor if you observe: Fever of 101 or Higher Cleanse incision/area with: Soap & Water Please Follow Up With: Luis Eduardo Cruz MD When: 7-10days postop Meaningful Use Info Meaningful Use Meaningful Use Diagnoses (Choose all that apply): None applicable Ischemic Stroke Statin Dosing Therapy Reference: STATIN DOSE THERAPY REFERENCE: * Patients > 75 years receive moderate or high dose statin therapy. * Patients 75 years or YOUNGER should receive HIGH intensity statin dose unless contraindicated. You will be required to document reason for non-treatment if statin daily dose does not meet guidelines. HIGH DOSE STATIN THERAPY DAILY Atorvastatin > than or = to 40 mg Rosuvastatin > than or = to 20 mg Amlodipine + Atorvastatin > than or = to 2.5/40 mg Ezetimibe + Simvastatin 10/80 mg Simvastatin 80mg Discharge Plan Admission Admit Date/Time: 02/14/24 07:48 Primary Reason for Your Visit: Status post appendectomy Attending Provider: Luis Eduardo Cruz Primary Care Provider: Tabitha Overton Discharge Orders/Prescriptions Prescriptions: New oxycodone 5 mg Tablet 5 mg PO Q6H PRN PRN (Reason: Pain Score 6-10) 3 Days Qty: 14 0RF Continued phentermine [Adipex-P] 37.5 mg tablet 18.75 mg PO QDAY Qty: 15 2RF Rx Instructions: BMI 42 levocetirizine [24HR Allergy Relief] 5 mg tablet 5 mg PO DAILY topiramate 50 mg tablet See Rx Instructions .ROUTE .COMPLEX Qty: 60 12RF Dose Instruction: TAKE 1 TABLET BY MOUTH TWICE A DAY Rx Instructions: TAKE 1 TABLET BY MOUTH TWICE A DAY Referrals / Follow Up: Tabitha Overton MD [Primary Care Provider] - Disposition Disposition (needs filled in before D/C Order can be placed): Home, Self Care Charges/Coding Visit Charges Inpatient E&M: 62926 Disch Hosp
--- NOTE | 2024-02-14 23:33 | CT_ITS ---
We are attempting to reach an attending provider to discuss findings. An addendum with communication details will be sent when the communication is complete. INDICATION: RLQ abd pain EXAMINATION: CT ABDOMEN AND PELVIS WITH CONTRAST - CT Abdomen And Pelvis W/ Contrast Injection TECHNIQUE: Helically acquired images were obtained of the abdomen and pelvis following IV contrast. A radiation dose optimization technique was used for this scan. IV Contrast dosage and agent: 100 mL Isovue-370 Oral contrast: Oral Gastrografin. COMPARISON: February 13, 2024 CT. FINDINGS: LOWER CHEST: Lung bases are clear. No cardiomegaly or pericardial effusion. LIVER: Homogeneous. No focal mass. GALLBLADDER AND BILIARY TREE: No calcified gallstones. No gallbladder distension or wall edema. No intra- or extrahepatic biliary ductal dilation. PANCREAS: No focal cystic or solid mass. SPLEEN: Normal size without focal cystic or solid mass. ADRENAL GLANDS: No nodules. KIDNEYS AND URETERS: Normal renal size and position. No hydronephrosis. PERITONEUM: No ascites or free air. No other fluid collection. BOWEL: No acute gastric finding. No small bowel distention or focal wall thickening. Oral contrast extends to the hepatic flexure of colon without extraluminal extravasation. Appendix measures up to 7.5 mm with trace adjacent fat stranding, axial image [id number] no colonic wall thickening. Small colonic stool burden. . LYMPH NODES: No enlarged mesenteric or retroperitoneal lymph nodes. VESSELS: Aorta is non-dilated. URINARY BLADDER: Unremarkable. REPRODUCTIVE ORGANS: Unremarkable uterus and adnexa. ABDOMINAL WALL: No discrete abdominal or pelvic wall hernia. BONES: No lytic or blastic abnormality. CT/Abdomen/Pelvis WITH Contrast IMPRESSION: Borderline appendix enlargement to 7.5 mm in the midportion with trace adjacent inflammatory stranding, overall nonspecific but cannot exclude acute appendicitis. Electronically Signed: Ochoa Tapia MD at 2:19 EDT ,
== END 2024-02-14 18:52 | disposition home or self-care (01) ==
LOC: ED 02-14 04:45 → SDC 02-14 05:12 → AC 02-14 05:14 → MS3 02-14 07:25 → SDC 02-14 08:21 → MS3 02-14 08:21
PROVIDERS: Admitting Provider Surgery; Emergency Provider Emergency Medicine; PCP Family Medicine; Referring Provider Surgery; Visit Provider Surgery
PROC: 0DTJ4ZZ Resection of Appendix, Percutaneous Endoscopic Approach (ICD-10-PCS; CPT 44970; principal; 2024-02-14 06:00)
DX: K35.80 Unspecified acute appendicitis (principal); K50.00 Crohn's disease of small intestine without complications; E66.01 Morbid (severe) obesity due to excess calories; Z68.42 Body mass index [BMI] 45.0-49.9, adult; F41.9 Anxiety disorder, unspecified; Z79.899 Other long term (current) drug therapy
CPT/HCPCS: 44970; 00840; 74177; 80053; 81001; 84703; 85025; 88304; 96365; 96375; 96376; 99221; 99284; J7030; Q9967; A4216; G0378; J2405

== ENCOUNTER 2024-02-23 09:06 | Emergency (ER) | payer OTHER, SELFPAY ==
[2024-02-23 09:08] VITALS: BP 163/91; PULSE 106; RESP 16; TEMP 36.6; O2SAT 99; BMI 47.5
--- NOTE | 2024-02-23 10:07 | EX.ED.DYSGE1 ---
HPI History of Present Illness Chief Complaint: Wound Check Informant: patient Narrative Narrative: Patient presents secondary to rash. She had a laparoscopic appendectomy on February [address] Cruz. She saw him in the office on Sunday and he remove the Steri-Strips. The following day she developed a rash around 2 of her incision sites. She states that it does itch and this morning she had some light and green-colored discharge. [facility] Medical History (Updated 02/23/24 @ 10:[address] Sri Belle MD) Pre-eclampsia, Home Medications ?Medication ?Instructions ?Recorded ?Last Taken ?Type topiramate 50 mg tablet See Rx Instructions .Route 04/09/23 Unknown Rx .COMPLEX #60 tabs phentermine 37.5 mg tablet 18.75 mg (1/2 x 37.5 mg) PO QDAY 06/08/23 Unknown Rx (Adipex-P) #15 tabs levocetirizine 5 mg tablet (24HR 5 mg PO DAILY 02/13/24 Unknown History Allergy Relief) cephalexin 500 mg capsule 500 mg PO Q6 #40 CAPSULES 02/23/24 Unknown Rx sulfamethoxazole 800 1 tab PO BID #20 tabs 02/23/24 Unknown Rx mg-trimethoprim 160 mg tablet (Bactrim DS) Allergy/AdvReac Type Severity Reaction Status Date / Time No Known Allergies Allergy Verified 02/23/24 09:08 Family History Mother , age 33 Leukemia Grandmother Pancreatic cancer Grandfather Cancer Father Skin cancer Grandmother Breast cancer Surgical History (Updated 02/23/24 @ 10:[address] Sri Belle MD) S/P appendectomy delivery delivered Social History household members: spouse and children housing: house current occupational status: employed Smoking Status: Never smoker alcohol intake: never substance use type: does not use caffeine: Yes what type of physical activity do you participate in: weight training frequency: 3-4 times per week seatbelt use: always do you feel safe at home: Yes additional social history: - [employer] Patient works at [employer] ROS ED Constitutional Constitutional ED: Denies chills or fever(s) Eyes Eyes: Denies discharge from eye(s) ENT ENT ED: Denies discharge from eye(s), rhinorrhea or sore throat Cardiovascular Cardiovascular: Denies chest pain Respiratory/Chest Respiratory/Chest: Denies cough or dyspnea Gastrointestinal Gastrointestinal: Denies abdominal pain, nausea or vomiting Musculoskeletal Musculoskeletal: Denies back pain or extremity pain Integumentary Reports rash; Denies Abrasions Neurologic Neurologic: Denies headache(s) or weakness Psychiatric Psychiatric: Denies anxiety or depression Allergic/Immunologic Allergic/Immunologic ED: Denies lip swelling or urticaria EXAM Physical Exam Const Vital Signs: 02/23/24 09:08 Temperature 97.8 F Temperature Source Temporal Pulse Rate 106 H Respiratory Rate 16 Blood Pressure 163/91 H Blood Pressure Mean 115 Pulse Ox 99 Oxygen Delivery Method Room Air Positive well nourished and well developed General Appearance ED: well developed HEENT Reports moist mucous membranes Eyes EOMs intact bilaterally Chest Wall inspection of chest normal and palpation of chest normal Resp normal respiratory effort and clear to auscultation bilaterally Cardio regular rate and regular rhythm GI GI Narrative: Periumbilical and left lower quadrant surgical wounds healing well. Each does have surrounding erythema measuring up to 8 x 6 cm. No palpable abscess or area of fluctuance at this time. Extremity normal to inspection Neuro oriented x3 and no sensory deficits noted Motor Exam: strength 5/5 throughout Psych mental status grossly normal MDM MDM MDM Narrative Medical decision making narrative: Area of erythema is outlined with surgical marker. Patient will be treated with Bactrim and Keflex, first dose is given here. Return instructions provided. Discharge Plan Triage Chief Complaint: Wound Check ED Provider: Sri Belle Dx/Rx/DC Orders Clinical Impression: Cellulitis Instructions: ED Cellulitis Prescriptions: New sulfamethoxazole-trimethoprim [Bactrim DS] 800-160 mg tablet 1 tab PO BID Qty: 20 0RF cephalexin 500 mg capsule 500 mg PO Q6 Qty: 40 0RF No Action phentermine [Adipex-P] 37.5 mg tablet 18.75 mg PO QDAY Qty: 15 2RF Rx Instructions: BMI 42 levocetirizine [24HR Allergy Relief] 5 mg tablet 5 mg PO DAILY topiramate 50 mg tablet See Rx Instructions .ROUTE .COMPLEX Qty: 60 12RF Dose Instruction: TAKE 1 TABLET BY MOUTH TWICE A DAY Rx Instructions: TAKE 1 TABLET BY MOUTH TWICE A DAY Primary Care Provider: Tabitha Overton Referrals: Tabitha Overton MD [Primary Care Provider] - Luis Eduardo Cruz MD [Med Staff - Active Staff] - 1 Week if not improving Print Language: Frisian Disposition Disposition: Home, Self Care Discharge Date/Time: 02/23/24 10:39
[2024-02-23] MEDS: Cephalexin 250 MG Capsule 500 MG PO (10:35)
[2024-02-23] MEDS: Smz/Tmp Ds Tablet 1 TABLET PO (10:35)
== END 2024-02-23 10:39 | disposition home or self-care (01) ==
LOC: ED 10:16
PROVIDERS: Emergency Provider Emergency Medicine; PCP Family Medicine; Visit Provider Emergency Medicine
DX: L03.311 Cellulitis of abdominal wall (principal)
CPT/HCPCS: 99282